=== PATIENT | male | born 1955 | race Caucasian/White ===

== ENCOUNTER → 2016-09-25 | Outpatient (REF) | payer MEDICARE, MEDICAID ==
[~2016-09-25] MED LIST: ALBU17IN INH; AMAN10CA PO; AMIT24CA5 PO; BENZ1TA PO; DICL75TA PO; HALD100I2 IM; METH75TA PO; NORCOTAB PO; Pantoprazole Sodium PO; RIBA200T2 PO; [UNRECOGNIZED DRUG - CODE] PO; [UNRECOGNIZED DRUG - CODE] PO
[2016-09-25 13:09] LABS: BASO % 0.6 % (0.0-1.0); EOS # 0.1 K/mm3 (0.0-0.50); EOS % 1.9 % (0.0-3.0); LARGE UNSTAINED CELL # 0.1 K/mm3 (0.0-0.4); LARGE UNSTAINED CELL % 1.2 % (0.0-4.0); LYMPH # 1.2 K/mm3 (1.5-4.5); MEAN CORPUSCULAR HEMOGLOBIN 31.7 pg (27.0-33.0); MEAN CORPUSCULAR HGB CONC 33.8 g/dl (32.0-36.5); MONO # 0.3 K/mm3 (0.0-0.8); MONO % 5.8 % (0.0-5.0); NEUTROPHILS # 3.8 K/mm3 (1.8-7.7); NEUTROPHILS % 69.6 % (36.0-66.0); PLATELET COUNT, AUTOMATED 147 k/mm3 (150-450); RED CELL DISTRIBUTION WIDTH 13.3 % (11.5-14.5); WHITE BLOOD COUNT 5.5 K/mm3 (4.0-10.0)
[2016-09-25 13:26] LABS: ALBUMIN 4.4 GM/DL (3.2-5.2); ALBUMIN/GLOBULIN RATIO 1.42 (1.00-1.93); ALKALINE PHOSPHATASE 122 U/L (45-117); ALT/SGPT 17 U/L (12-78); ANION GAP 8 MEQ/L (8-16); AST/SGOT 20 U/L (15-37); BILIRUBIN,TOTAL 0.6 MG/DL (0.2-1.0); BLOOD UREA NITROGEN 10 MG/DL (7-18); CALCIUM LEVEL 9.5 MG/DL (8.8-10.2); CARBON DIOXIDE LEVEL 31 MEQ/L (21-32); CHLORIDE LEVEL 103 MEQ/L (98-107); CHOLESTEROL LEVEL 162 MG/DL (<200); CREATININE FOR GFR 0.78 MG/DL (0.70-1.30); GLOMERULAR FILTRATION RATE > 60.0 (>49); GLUCOSE, FASTING 98 MG/DL (80-110); POTASSIUM SERUM 4.6 MEQ/L (3.5-5.1); SODIUM LEVEL 142 MEQ/L (136-145); TOTAL PROTEIN 7.5 GM/DL (6.4-8.2); TRIGLYCERIDES LEVEL 111 MG/DL (<150)
== END ==
LOC: M SFHCADAM 09:16
PROVIDERS: ATTEND Physician Assistant Medical
DX: B18.2 Chronic viral hepatitis C (principal); K21.9 Gastro-esophageal reflux disease without esophagitis; F17.201 Nicotine dependence, unspecified, in remission; Z79.899 Other long term (current) drug therapy
CPT/HCPCS: 80053; 80061; 82306; 84443; 85025; G0463

== ENCOUNTER → 2016-10-01 | Outpatient (REF) | payer MEDICARE, MEDICAID ==
[2016-10-03 14:13] LABS: ALT 18 IU/L (0-55); GGT 16 IU/L (0-65); HAPTOGLOBIN 177 mg/dL (34-200); HEPATITIS C QUANTITATION HCV Not Detected IU/mL (.); NECROINFLAMM GRADE A0-No activity (.); TOTAL BILIRUBIN 0.3 mg/dL (0.0-1.2)
== END ==
LOC: M SFHCPLAZ 10:51
PROVIDERS: ATTEND Internal Medicine Infectious Disease
DX: B18.2 Chronic viral hepatitis C (principal); K21.9 Gastro-esophageal reflux disease without esophagitis; F20.0 Paranoid schizophrenia; J44.9 Chronic obstructive pulmonary disease, unspecified; F17.200 Nicotine dependence, unspecified, uncomplicated
CPT/HCPCS: 82105; 82172; 82247; 82977; 83010; 83883; 84460; 87522; G0463

== ENCOUNTER → 2017-07-02 | Outpatient (REF) | payer MEDICARE, MEDICAID ==
[~2017-07-02] MED LIST changes: -AMIT24CA5 PO; +AMIT24CA7 PO; +BENZ-52 PO; -BENZ1TA PO
[2017-07-02 20:02] LABS: BASO % 0.6 % (0.0-1.0); EOS # 0.1 10^3/uL (0.0-0.50); EOS % 1.5 % (0.0-3.0); IMMATURE GRANULOCYTE % 0.3 % (0-0); LYMPH # 1.8 10^3/uL (1.5-4.5); MEAN CORPUSCULAR HEMOGLOBIN 30.7 pg (27.0-33.0); MEAN CORPUSCULAR HGB CONC 33.1 g/dl (32.0-36.5); MEAN CORPUSCULAR VOLUME 92.9 fl (80.0-96.0); MONO # 0.5 10^3/uL (0.0-0.8); NEUTROPHILS # 4.4 10^3/uL (1.8-7.7); NEUTROPHILS % 64.6 % (36.0-66.0); PLATELET COUNT, AUTOMATED 186 10^3/uL (150-450); RED CELL DISTRIBUTION WIDTH 13.3 % (11.5-14.5); WHITE BLOOD COUNT 6.8 10^3/uL (4.0-10.0)
[2017-07-02 20:19] LABS: ALBUMIN 4.1 GM/DL (3.2-5.2); ALBUMIN/GLOBULIN RATIO 1.21 (1.00-1.93); ALKALINE PHOSPHATASE 110 U/L (45-117); ALT/SGPT 18 U/L (12-78); ANION GAP 5 MEQ/L (8-16); AST/SGOT 15 U/L (7-37); BILIRUBIN,TOTAL 0.4 MG/DL (0.2-1.0); BLOOD UREA NITROGEN 6 MG/DL (7-18); CALCIUM LEVEL 9.4 MG/DL (8.8-10.2); CARBON DIOXIDE LEVEL 34 MEQ/L (21-32); CHLORIDE LEVEL 101 MEQ/L (98-107); CHOLESTEROL LEVEL 160 MG/DL (<200); CREATININE FOR GFR 0.74 MG/DL (0.70-1.30); GLOMERULAR FILTRATION RATE > 60.0 (>49); GLUCOSE, FASTING 88 MG/DL (80-110); POTASSIUM SERUM 4.5 MEQ/L (3.5-5.1); SODIUM LEVEL 140 MEQ/L (136-145); TOTAL PROTEIN 7.5 GM/DL (6.4-8.2); TRIGLYCERIDES LEVEL 73 MG/DL (<150)
== END ==
LOC: M SFHCADAM 15:55
PROVIDERS: ATTEND Physician Assistant Medical
DX: B18.2 Chronic viral hepatitis C (principal); J44.9 Chronic obstructive pulmonary disease, unspecified; K21.9 Gastro-esophageal reflux disease without esophagitis; F20.0 Paranoid schizophrenia; F17.201 Nicotine dependence, unspecified, in remission; G25.2 Other specified forms of tremor; Z79.899 Other long term (current) drug therapy
CPT/HCPCS: 80053; 80061; 84443; 85025; G0463

== ENCOUNTER → 2017-08-27 | Outpatient (CLI) | payer MEDICARE, MEDICAID ==
[2017-08-27 09:56] LABS: BASO # 0.1 10^3/uL (0.0-0.2); BASO % 0.6 % (0.0-1.0); EOS # 0.1 10^3/uL (0.0-0.50); EOS % 0.9 % (0.0-3.0); HEMATOCRIT 47.3 % (42.0-52.0); HEMOGLOBIN 15.9 g/dl (14.0-18.0); IMMATURE GRANULOCYTE % 0.1 % (0-0); LYMPH % 12.7 % (24.0-44.0); MEAN CORPUSCULAR HEMOGLOBIN 31.2 pg (27.0-33.0); MEAN CORPUSCULAR HGB CONC 33.6 g/dl (32.0-36.5); MEAN CORPUSCULAR VOLUME 92.9 fl (80.0-96.0); MONO # 0.5 10^3/uL (0.0-0.8); MONO % 6.1 % (0.0-5.0); NEUTROPHILS # 6.3 10^3/uL (1.8-7.7); NEUTROPHILS % 79.6 % (36.0-66.0); PLATELET COUNT, AUTOMATED 167 10^3/uL (150-450); RED BLOOD COUNT 5.09 10^6/uL (4.30-6.10); RED CELL DISTRIBUTION WIDTH 13.3 % (11.5-14.5); WHITE BLOOD COUNT 7.9 10^3/uL (4.0-10.0)
[2017-08-27 10:25] LABS: ALBUMIN 4.1 GM/DL (3.2-5.2); ALBUMIN/GLOBULIN RATIO 1.21 (1.00-1.93); ALKALINE PHOSPHATASE 116 U/L (45-117); ALT/SGPT 15 U/L (12-78); ANION GAP 5 MEQ/L (8-16); AST/SGOT 16 U/L (7-37); BILIRUBIN,TOTAL 0.4 MG/DL (0.2-1.0); BLOOD UREA NITROGEN 9 MG/DL (7-18); CALCIUM LEVEL 9.4 MG/DL (8.8-10.2); CARBON DIOXIDE LEVEL 32 MEQ/L (21-32); CHLORIDE LEVEL 107 MEQ/L (98-107); CHOLESTEROL LEVEL 159 MG/DL (<200); CHOLESTEROL RISK RATIO 4.676 (<5); CREATININE FOR GFR 0.77 MG/DL (0.70-1.30); GLOMERULAR FILTRATION RATE > 60.0 (>49); GLUCOSE, FASTING 100 MG/DL (70-100); HDL CHOLESTEROL 34 MG/DL (>40); NON-HDL-C 125 MG/DL; POTASSIUM SERUM 4.7 MEQ/L (3.5-5.1); SODIUM LEVEL 144 MEQ/L (136-145); TOTAL PROTEIN 7.5 GM/DL (6.4-8.2); TRIGLYCERIDES LEVEL 115 MG/DL (<150)
== END ==
LOC: M LAB 09:10
DX: B18.2 Chronic viral hepatitis C (principal); J44.9 Chronic obstructive pulmonary disease, unspecified
CPT/HCPCS: 84443

== ENCOUNTER → 2018-03-24 | Outpatient (REF) | payer MEDICARE, MEDICAID ==
[2018-03-24 20:03] LABS: ALBUMIN 4.1 GM/DL (3.2-5.2); ALBUMIN/GLOBULIN RATIO 1.17 (1.00-1.93); ALKALINE PHOSPHATASE 118 U/L (45-117); ALT/SGPT 24 U/L (12-78); ANION GAP 10 MEQ/L (8-16); AST/SGOT 17 U/L (7-37); BILIRUBIN,TOTAL 0.5 MG/DL (0.2-1.0); BLOOD UREA NITROGEN 5 MG/DL (7-18); CALCIUM LEVEL 9.5 MG/DL (8.8-10.2); CARBON DIOXIDE LEVEL 29 MEQ/L (21-32); CHLORIDE LEVEL 104 MEQ/L (98-107); CREATININE FOR GFR 0.82 MG/DL (0.70-1.30); FREE T4 1.02 NG/DL (0.76-1.46); GLOMERULAR FILTRATION RATE > 60.0 (>49); GLUCOSE, FASTING 76 MG/DL (70-100); POTASSIUM SERUM 4.1 MEQ/L (3.5-5.1); SODIUM LEVEL 143 MEQ/L (136-145); TOTAL PROTEIN 7.6 GM/DL (6.4-8.2)
[2018-03-24 20:13] LABS: BASO % 0.7 % (0.0-1.0); EOS # 0.1 10^3/uL (0.0-0.50); EOS % 1.5 % (0.0-3.0); HEMOGLOBIN 15.4 g/dl (13.5-17.5); IMMATURE GRANULOCYTE % 0.3 % (0-3.0); LYMPH # 1.6 10^3/uL (1.5-4.5); LYMPH % 26.6 % (24.0-44.0); MEAN CORPUSCULAR HEMOGLOBIN 31.2 pg (27.0-33.0); MEAN CORPUSCULAR HGB CONC 34.2 g/dl (32.0-36.5); MEAN CORPUSCULAR VOLUME 91.1 fl (80.0-96.0); MONO # 0.4 10^3/uL (0.0-0.8); MONO % 6.9 % (0.0-5.0); NEUTROPHILS # 3.8 10^3/uL (1.8-7.7); PLATELET COUNT, AUTOMATED 170 10^3/uL (150-450); RED BLOOD COUNT 4.94 10^6/uL (4.30-6.10); RED CELL DISTRIBUTION WIDTH 13.5 % (11.5-14.5); WHITE BLOOD COUNT 5.9 10^3/uL (4.0-10.0)
[2018-03-26 07:31] LABS: ALPHA FETOPROTEIN TUMOR QUANT < 1.3 NG/ML (<8.1)
== END ==
LOC: M SFHCADAM 15:08
DX: K21.9 Gastro-esophageal reflux disease without esophagitis (principal); E03.9 Hypothyroidism, unspecified; F20.0 Paranoid schizophrenia; J44.9 Chronic obstructive pulmonary disease, unspecified; F17.201 Nicotine dependence, unspecified, in remission; G25.2 Other specified forms of tremor; R53.83 Other fatigue; Z86.19 Personal history of other infectious and parasitic diseases
CPT/HCPCS: 84443

== ENCOUNTER → 2018-04-04 | Outpatient (CLI) | payer MEDICARE, MEDICAID | LOC: M WUC 11:27 | DX: E03.9 Hypothyroidism, unspecified (principal) | CPT/HCPCS: 84443 ==

== ENCOUNTER → 2018-04-08 | Outpatient (CLI) | payer MEDICARE, MEDICAID | LOC: M RAD 07:21 | DX: Z86.19 Personal history of other infectious and parasitic diseases (principal); N28.1 Cyst of kidney, acquired | CPT/HCPCS: 76705 ==

== ENCOUNTER → 2018-11-25 | Outpatient (REF) | payer MEDICARE, MEDICAID ==
[~2018-11-25] MED LIST changes: +AMAN100C20 PO; -AMAN10CA PO; +HYDR-3715 PO; -NORCOTAB PO
[2018-11-25 13:28] LABS: BASO % 0.7 % (0.0-1.0); EOS # 0.1 10^3/uL (0.0-0.50); HEMATOCRIT 48.3 % (42.0-52.0); HEMOGLOBIN 16.2 g/dl (13.5-17.5); LYMPH # 1.1 10^3/uL (1.5-4.5); LYMPH % 18.4 % (24.0-44.0); MEAN CORPUSCULAR HGB CONC 33.5 g/dl (32.0-36.5); MEAN CORPUSCULAR VOLUME 92.4 fl (80.0-96.0); MONO # 0.4 10^3/uL (0.0-0.8); MONO % 7.1 % (0.0-5.0); NEUTROPHILS # 4.4 10^3/uL (1.8-7.7); NEUTROPHILS % 71.6 % (36.0-66.0); PLATELET COUNT, AUTOMATED 140 10^3/uL (150-450); RED BLOOD COUNT 5.23 10^6/uL (4.30-6.10); WHITE BLOOD COUNT 6.1 10^3/uL (4.0-10.0)
[2018-11-25 14:06] LABS: ALBUMIN 4.3 GM/DL (3.2-5.2); ALT/SGPT 21 U/L (12-78); BILIRUBIN,TOTAL 0.5 MG/DL (0.2-1.0); BLOOD UREA NITROGEN 11 MG/DL (7-18); CALCIUM LEVEL 9.5 MG/DL (8.8-10.2); CARBON DIOXIDE LEVEL 33 MEQ/L (21-32); CHLORIDE LEVEL 105 MEQ/L (98-107); CHOLESTEROL LEVEL 154 MG/DL (<200); CREATININE FOR GFR 0.84 MG/DL (0.70-1.30); FREE T4 0.96 NG/DL (0.76-1.46); GLOMERULAR FILTRATION RATE > 60.0 (>49); GLUCOSE, FASTING 66 MG/DL (70-100); HDL CHOLESTEROL 40 MG/DL (>40); LDL CHOLESTEROL 97 MG/DL (<100); NON-HDL-C 114 MG/DL; POTASSIUM SERUM 4.6 MEQ/L (3.5-5.1); SODIUM LEVEL 141 MEQ/L (136-145); TOTAL PROTEIN 7.1 GM/DL (6.4-8.2); TRIGLYCERIDES LEVEL 86 MG/DL (<150)
[2018-11-25 14:08] LABS: FOLATE 14.6 NG/ML; VITAMIN B12 LEVEL 653 PG/ML
[2018-11-25 14:51] LABS: HEMOGLOBIN A1c 5.5 %
== END ==
LOC: M SFHCADAM 09:39
PROVIDERS: ATTEND Physician Assistant Medical
DX: F20.0 Paranoid schizophrenia (principal); E03.9 Hypothyroidism, unspecified; G25.2 Other specified forms of tremor; Z12.5 Encounter for screening for malignant neoplasm of prostate
CPT/HCPCS: 80053; 80061; 82105; 82140; 82607; 82746; 83036; 84207; 84439; 84443; 85025; G0103

== ENCOUNTER 2018-12-09 10:55 | Inpatient (IN) | payer MEDICARE, MEDICAID ==
[~2018-12-09] VITALS: Ht 165.1 cm; Wt 65.0 kg
[~2018-12-09 10:55] MED LIST changes: +PALIPERIDONE 3 MG ER TAB (INVEGA) PO SCH
[2018-12-09] MEDS ORDERED: LORazepam 2 MG TAB PO STA (11:40)
[2018-12-09 11:59] LABS: HEMATOCRIT 45.6 % (42.0-52.0); HEMOGLOBIN 15.5 g/dl (13.5-17.5); MEAN CORPUSCULAR HEMOGLOBIN 30.6 pg (27.0-33.0); MEAN CORPUSCULAR VOLUME 90.1 fl (80.0-96.0); PLATELET COUNT, AUTOMATED 189 10^3/uL (150-450); RED BLOOD COUNT 5.06 10^6/uL (4.30-6.10); WHITE BLOOD COUNT 6.5 10^3/uL (4.0-10.0)
[2018-12-09 12:42] LABS: AMPHETAMINES LEVEL URINE NEGATIVE (NEGATIVE); BARBITURATES URINE NEGATIVE (NEGATIVE); BENZODIAZEPINES URINE NEGATIVE (NEGATIVE); CANNABINOIDS URINE NEGATIVE (NEGATIVE); COCAINE METABOLITE URINE NEGATIVE (NEGATIVE); METHADONE URINE NEGATIVE (NEGATIVE); OPIATES URINE NEGATIVE (NEGATIVE); PHENCYCLIDINE URINE NEGATIVE (NEGATIVE)
[2018-12-09 12:43] LABS: ACETAMINOPHEN LEVEL < 2.0 UG/ML (10.0-30.0); ALBUMIN 4.2 GM/DL (3.2-5.2); ALT/SGPT 29 U/L (12-78); BILIRUBIN,DIRECT 0.1 MG/DL (0.0-0.2); BILIRUBIN,TOTAL 0.7 MG/DL (0.2-1.0); BLOOD UREA NITROGEN 4 MG/DL (7-18); CALCIUM LEVEL 9.2 MG/DL (8.8-10.2); CARBON DIOXIDE LEVEL 33 MEQ/L (21-32); CHLORIDE LEVEL 104 MEQ/L (98-107); CREATININE FOR GFR 0.78 MG/DL (0.70-1.30); ETHYL ALCOHOL (ETHANOL) < 0.003 % (0.000-0.010); GLOMERULAR FILTRATION RATE > 60.0 (>49); GLUCOSE, FASTING 102 MG/DL (70-100); POTASSIUM SERUM 4.3 MEQ/L (3.5-5.1); SALICYLATE LEVEL 3.6 MG/DL (5.0-30.0); SODIUM LEVEL 140 MEQ/L (136-145); TOTAL PROTEIN 7.6 GM/DL (6.4-8.2)
[2018-12-09] MEDS ORDERED: OLANZapine ORAL DISINTEGRATING TAB 5MG PO PRN (13:45)
[2018-12-09] MEDS ORDERED: ACETAMINOPHEN TAB 650MG DOSE (2X325MG) PO PRN (13:45)
[2018-12-09] MEDS ORDERED: PYRI50TA8 PO (13:50)
[2018-12-09] MEDS ORDERED: LORA1TAB12 PO (13:50)
[2018-12-09] MEDS ORDERED: BENZ-52 PO (13:50)
[2018-12-09] MEDS ORDERED: OLAN20TA14 PO (13:50)
[2018-12-09] MEDS ORDERED: HALD100I2 IM (13:50)
[2018-12-09] MEDS ORDERED: COMMENT (13:52)
[2018-12-09 15:23] VITALS: BP 139/87
[2018-12-09] MEDS: QUEtiapine FUMARATE 50 MG TAB PO SCH ×2 (16:28→21:00)
[2018-12-10 07:05] VITALS: BP 144/88
[2018-12-10] MEDS: QUEtiapine FUMARATE 50 MG TAB PO SCH ×3 (08:55→21:00)
[2018-12-10 10:00] VITALS: BP 144/88
--- NOTE | 2018-12-10 12:13 | MHHPEPDOC ---
General Date Of Admission: December 09, 2018 Legal Status: 9.39 Chief Complaint "I'm a healer." History of Present Illness HISTORY OF THE PRESENT ILLNESS: Patient is a 63 -year-old , male, with a psych history of paranoid schizophrenia and multiple admission [facility] [place] who was brought to ED by his sister due to psychotic, paranoid, religiously preoccupied symptoms. Per ED pt stopped taking his medications and following up at [facility] b/c "I didn't want to" and "I'm allergic to all psychotropics." Pt's sister also told ED that pt warned her to not come in his apt b/c she will be in danger and that his landlord called her to inform her that pt has been knocking on tenant's doors, yelling and preaching to them. 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 Pt is a very poor historian so history gathered from ED report of evaluation. Psychiatric Review of Systems Depression (2 or more weeks): denies Pat (4 or more days of): irritable/elevated mood, flight of ideas, distractibility Psychosis: auditory hallucination, delusions, paranoia, disorganization PTSD: denies Anxiety: situational anxiety, stressor related anxiety Anxiety/ 6 months or more of: restlessness, keyed up, difficulty concentrating Past Psychiatric History Previous Psychiatric Diagnosis: paranoid schizophrenia Previous Psychiatric Admissions:multiple in the past for psychosis, last 06/2005 on [facility] [place] in past several months Suicide Attempts: none known Psychiatric Follow-up: [facility] hasn't gone "b/c I didn't feel like it" for a few wks Psychiatric medications: has been on haldol dec 300mg qmonth, zyprexa 20mg qhs, ativan 1mg tid, cogentin 1mg bid Past Medical History Medical Problems history of perforated duodenal ulcer Hep C Head Injury: No Seizures: No Hospitalizations: Yes Surgeries: Yes Family Medical/Psychiatric HX Medical Problems noncontributor FmPH unknown (pt poor historian) Psychiatric Disorders: No Addiction: No Suicide Attemps/Completions: No Addiction History nicotine, denies (utox neg) Social History Childhood: born and raised [facility], sister keeps track of pt and aids him with his needs Abuse/Trauma:denies Current Living Situation: lives in apt alone, sister checks in on him Education: high school edu Employment: disabled Social Support: sister Legal: none known Marital: legally from (no known contact with her for multiple years), no kids Mental Status Examination General Appearance: unkempt, disheveled, appears stated age, hospital scubs/clothing Build: thin Demeanor: mistrustful, withdrawn, preoccupied, guarded Eye Contact: avoidant Activity: anxious Behavior: uncooperative, resistant, withdrawn Speech: non-spontaneous, impoverished Mood: anxious, irritable Mood irritable Affect: constricted, labile, congruent, anxious, disorganized Thought Process: concrete, loose, associative, flight of ideas Thought Content (Delusions): grandiose, bizarre, paranoia, delusions, other (religiously preoccupied, denies SI/HI) Thought Content (Other): preoccupied, guarded, ideas of reference, internal- stimuli, appears paranoid Thought Content (Aggressive): none reported Perception (Hallucinations): auditory Perception (Other): none reported Cognition (Impairment of): memory, attention/concentration, ability to abstract Cognition(Intelligence Est.): borderline Oriented: Awake, Alert, Oriented times three Insight: poor Judgment: Poor Psychosis: Associations, Abstract Thinking, Psychotic Perceptions Diagnoses paranoid schizophrenia A-FIB/CHADSVASC A-FIB History Current/History of A-Fib/PAF?: No Current Oral Anticoagulant The: No Treatment Treatment ordered: NONE Reason Anticoagulant not given: Not indicated/[id number] Assessment Pt seen and states "I don't want to talk." When seen in treatment team early this morning he stated "I can heal you." Askedd pt if he would agree to restart his medications and just ask "what are they." Walked away after that. He is bizarre, delusional, pacing the unit responding to internal stimuli. He is redirectable with staff. Pt is a very poor historian did not supply much history given his current psychotic symptoms. Initial Treatment Plan 1. Patient was admitted on a 9.39 status. 2. Complete history was obtained. 3. With patients permission, family will be contacted and database will be expanded. 4. Patients medication regimen will be reviewed and changed accordingly. 5. Patient will be provided with protected environment. 6. Patient will be treated with individual, group, and milieu therapies. 7. Patient will receive supportive psych-education. 8. Discharge planning will commence immediately. 9. Outpatient follow-up treatment will be strongly recommended. 10. The initial treatment plan will focus initially on: * Depression. * Risk for suicide. * Substance abuse. 11. restart outpatient meds. Give haldol dec 300mg im x1 ESTIMATED LENGTH OF STAY: 7-9 DAYS. TIME SPENT COUNSELING AND COORDINATING INITIAL CARE: 60 minutes. Vital Signs Vital Signs Date Time Temp Pulse Resp B/P (MAP) Pulse Ox O2 Delivery O2 Flow Rate FiO2 12/10/18 07:05 97.9 70 18 144/88 (106) 12/09/18 15:23 98 12/09/18 15:09 Room Air Laboratory Data 24H Labs Laboratory Tests 2 12/09/18 11:42: Nucleated Red Blood Cells % (auto) 0.0, Anion Gap 3L, Glomerular Filtration Rate > 60.0, Calcium Level 9.2, Aspartate Amino Transf (AST/SGOT) 25, Alanine Aminotransferase (ALT/SGPT) 29, Alkaline Phosphatase 107, Total Bilirubin 0.7, Direct Bilirubin 0.1, Total Protein 7.6, Albumin 4.2, Albumin/Globulin Ratio 1.24, Thyroid Stimulating Hormone (TSH) 3.190, Salicylates Level 3.6L, Acetaminophen Level < 2.0L, Ethyl Alcohol Level < 0.003 CBC/BMP Laboratory Tests 12/09/18 11:42 Red Blood Count 5.06, Mean Corpuscular Volume 90.1, Mean Corpuscular Hemoglobin 30.6, Mean Corpuscular Hemoglobin Concent 34.0, Red Cell Distribution Width 13.7 Medications Scheduled Benztropine Mesylate (Benztropine Mesylate) 1 Mg Tablet, 1 MG PO BID, (Reported) Haloperidol Decanoate (Haldol Decanoate 100) 100 Mg/1 Ml Ampul, 300 MG IM QMONTH, (Reported) Lorazepam (Lorazepam) 1 Mg Tablet, 1 MG PO TID, (Reported) Olanzapine (Olanzapine) 20 Mg Tablet, 20 MG PO QHS, (Reported) Pyridoxine HCl (Vitamin B6) (Pyridoxine HCl) 50 Mg Tablet, 25 MG PO QHS, (Reported) Miscellaneous Medications [Comment ] , (Reported) PT STOPPED TAKING MEDS AND HAS NOT HAD THEM IN A FEW WEEKS Allergies Coded Allergies: Penicillins (Verified Allergy, Unknown, 12/09/18) also penicillin cross reactors risperidone (Verified Allergy, Unknown, 12/09/18) KEARA PARTIDA DO December 10, 2018 12:13
--- NOTE | 2018-12-10 13:16 | HPEPDOC ---
General Date of Admission December 09, 2018 at 13:32 Chief Complaint The patient is a 63-year-old male admitted with a reason for visit of Chronic Paranoid Schizophrenia. History of Present Illness Patient is a 63-year-old male, presenting to the emergency room on account of acute psychosis and paranoia. He has a past medical history significant for chronic paranoid schizophrenia, port removal. Also, chronic hepatitis C, GERD, COPD, hyperlipidemia, chronic constipation. It was also documented that patient reported he was being controlled by god. He had also stopped all his medications, claiming allergy to all his psychotropics. He denied any suicidal or homicidal ideation. He was admitted to inpatient psychiatry unit for further evaluation and management. On evaluation, his very reluctant to participate in assessment. Very poor eye contact. He eventually declined physical examination Home Medications Scheduled Benztropine Mesylate (Benztropine Mesylate) 1 Mg Tablet, 1 MG PO BID, (Reported) Haloperidol Decanoate (Haldol Decanoate 100) 100 Mg/1 Ml Ampul, 300 MG IM QMONTH, (Reported) Lorazepam (Lorazepam) 1 Mg Tablet, 1 MG PO TID, (Reported) Olanzapine (Olanzapine) 20 Mg Tablet, 20 MG PO QHS, (Reported) Pyridoxine HCl (Vitamin B6) (Pyridoxine HCl) 50 Mg Tablet, 25 MG PO QHS, (Reported) Miscellaneous Medications [Comment ] , (Reported) PT STOPPED TAKING MEDS AND HAS NOT HAD THEM IN A FEW WEEKS Allergies Coded Allergies: Penicillins (Verified Allergy, Unknown, 12/09/18) also penicillin cross reactors risperidone (Verified Allergy, Unknown, 12/09/18) Past Medical History Medical History Hyperlipidemia GERD COPD Paranoid schizophrenia Duodenal Ulcer with perforated viscus Chronic hepatitis C Depression, anxiety Chronic constipation Surgical History Exploratory laparoscopy with repair of perforated duodenal ulcer Thyroid ion Tooth Extraction EGD, colonoscopy Family History Father: Myocardial infarction, congestive heart failure Social History * Smoker: greater than 1 pack/day Alcohol: Denies Drugs: denies A-FIB/CHADSVASC A-FIB History Current/History of A-Fib/PAF?: No Current Oral Anticoagulant The: No Review of Systems Other systems Unable to complete review of systems due to patient's reluctance to provide information due to underlying clinical status with acute paranoid schizophrenia Physical Examination Other physical findings GENERAL: NAD SKIN : Warm, dry intact HEENT: Atraumatic, normocephalic, PERRL, moist mucous membrane MS: no joint deformities NEURO: Alert , CN2-12 grossly intact PSYCH: Anxiety is present Vital Signs Vital Signs Date Time Temp Pulse Resp B/P (MAP) Pulse Ox O2 Delivery O2 Flow Rate FiO2 12/10/18 11:31 Room Air 12/10/18 10:00 97.9 70 18 144/88 98 Assessment/Plan GERD COPD Chronic constipation Paranoid schizophrenia with acute psychosis Medical nonadherence PLAN Proton pump inhibitor daily for underlying GERD and history of duodenal ulcer Treatment of acute psychotic episode and paranoid schizophrenia by primary team At this time there are no acute medical problems or underlying comorbidities requiring active follow-up. Medical team will sign off, please reconsult as needed. Plan / VTE VTE Prophylaxis Ordered?: No VTE Exclusion Mechanical Proph: Low Risk for VTE SERENITY SNELL December 10, 2018 13:16
[2018-12-10] MEDS: PANTOPRAZOLE 40MG TAB (PROTONIX) PO SCH (14:39)
[2018-12-10] MEDS ORDERED: HALOPERIDOL DECANOATE 100 MG/ML VIAL (J1631) IM ONE (15:00)
[2018-12-10 18:00] VITALS: BP 138/80
[2018-12-11 06:28] VITALS: BP 143/84
[2018-12-11] MEDS: QUEtiapine FUMARATE 50 MG TAB PO SCH ×3 (09:00→20:56)
[2018-12-11] MEDS: PANTOPRAZOLE 40MG TAB (PROTONIX) PO SCH (09:00)
--- NOTE | 2018-12-11 13:17 | MHIPNPDOC ---
[facility] Progress Note Progress Note DATE OF SERVICE: 12/11/18 HISTORY: This 63-year-old male has a long history of psychotic behavior and recently has become violent and thought disordered. VITAL SIGNS: See below. NEW TEST RESULTS:. No new test results. CURRENT MEDICATIONS: See below. MENTAL STATUS EXAMINATION: Patient is a 63 -year old male, who is irritable with paranoid thoughts. Speech: Is, unremarkable. Language skills are, intact. Thought processes including: Paranoid. Thought content:. Patient is delusional with visual hallucinations with thoughts that he is being electrocuted and controlled. Abstract reasoning, and computation:. Abstract reasoning is poor. Description of associations:, Loose. Description of abnormal or psychotic thoughts:. Patient states he is being hurt by antipsychotics and that he is being electrocuted as well as controlled by electrical devices. Judgment: Poor. Insight:, Poor. Orientation:, Fully oriented. Recent and remote memory:, Impaired. Attention span and concentration: Poor. Language:. No disturbance. Fund of knowledge: Fair. Mood: Irritable. Affect:, Angry. DIAGNOSES: 1., Schizoaffective disorder ASSESSMENT: This 63-year-old male is a noncompliant patient who is refusing his Haldol Decanoate as prescribed by Dr. Barrera and is presently angry and noncompliant. He is having hallucinations and paranoid delusions. MANAGEMENT PLAN: Encourage patient to take Haldol Decanoate and may readjust oral medications. TIME SPENT:, 45 minutes. Vital Signs Vital Signs Date Time Temp Pulse Resp B/P (MAP) Pulse Ox O2 Delivery O2 Flow Rate FiO2 12/11/18 06:28 98.1 90 16 143/84 (103) 12/10/18 11:31 Room Air 12/10/18 10:00 98 Current Medications Current Medications Acetaminophen (Tylenol Tab) 650 mg Q6HP PRN PO HEADACHE or DISCOMFORT; Start 12/09/18 at 13:45 Al Hydrox/Mg Hydrox/Simethicone (Mylanta) 30 ml Q4HP PRN PO HEARTBURN/INDIGESTION; Start 12/09/18 at 13:45 Home Med (Med Rec Complete!) ASDIRECTED XX ; Start 12/09/18 at 14:00; Stop 12/09/18 at 14:00; Status DC Lorazepam (Ativan) 2 mg STAT STAT PO Last administered on 12/09/18at 11:58; Start 12/09/18 at 11:40; Stop 12/09/18 at 11:41; Status DC Magnesium Hydroxide (Milk Of Magnesia) 30 ml DAILYPRN PRN PO CONSTIPATION; Start 12/09/18 at 13:45 Miscellaneous (Unresolved Clarification Entry) SEE LABEL COMMENTS DAILY XX ; Start 12/10/18 at 09:00; Stop 12/10/18 at 14:48; Status DC Olanzapine (ZyPREXA ZYDIS) 5 mg Q6HP PRN PO AGITATION; Start 12/09/18 at 13:45 Paliperidone (Invega) 3 mg BID PO ; Start 12/09/18 at 09:00; Status Cancel Pantoprazole Sodium (Protonix) 40 mg DAILY PO Last administered on 12/10/18at 14:39; Start 12/10/18 at 09:00 Quetiapine Fumarate (SEROquel) 50 mg TID PO Last administered on 12/10/18at 15:14; Start 12/09/18 at 16:00 Trazodone HCl (Desyrel) 50 mg QHSP PRN PO INSOMNIA; Start 12/09/18 at 13:45 Allergies Coded Allergies: Penicillins (Verified Allergy, Unknown, 12/09/18) also penicillin cross reactors risperidone (Verified Allergy, Unknown, 12/09/18) A-FIB/CHADSVASC A-FIB History Current/History of A-Fib/PAF?: No Current Oral Anticoagulant The: No JL CHOUDHURY MD December 11, 2018 13:17
[2018-12-11 18:00] VITALS: BP 132/72
[2018-12-11] MEDS: MAALOX 30 ML SUSP *UDC PO PRN (20:58)
[2018-12-12 07:13] VITALS: BP 164/98
[2018-12-12] MEDS: PANTOPRAZOLE 40MG TAB (PROTONIX) PO SCH (08:45)
[2018-12-12] MEDS: QUEtiapine FUMARATE 50 MG TAB PO SCH ×3 (08:45→21:00)
[2018-12-12] MEDS: HALOPERIDOL 5 MG TAB PO SCH ×3 (11:12→21:00)
[2018-12-12] MEDS: BENZTROPINE 1 MG TAB PO SCH ×2 (11:12→21:00)
--- NOTE | 2018-12-12 13:20 | MHIPNPDOC ---
[facility] Progress Note Progress Note DATE OF SERVICE: 12/12/18 HISTORY: 63-year-old male with long history of psychosis, living with family. VITAL SIGNS: See below. NEW TEST RESULTS:. None. CURRENT MEDICATIONS: See below. MENTAL STATUS EXAMINATION: Patient is a 63-year old male, who is admitted for active psychotic symptoms with long history of psychosis. Speech: Is, minimal. Language skills are normal. Thought processes including:. Hallucinations and delusions. Thought content:, Visual hallucinations and paranoid delusions. Abstract reasoning, and computation:, Poor. Description of associations: Adequate. Description of abnormal or psychotic thoughts: Hallucinations and delusions of electrocution and poisoning. Judgment:, Poor. Insight:, Poor. Orientation: Full. Recent and remote memory: Not measured. Attention span and concentration: Poor. Language:. No disturbance. Fund of knowledge: Not measurable. Mood: Low. Affect: Angry. DIAGNOSES: 1. Schizophrenia ASSESSMENT: 63-year-old male actively psychotic and noncompliant with medication MANAGEMENT PLAN:. Will change neuroleptic medication to Haldol oral. TIME SPENT: 30 minutes. Vital Signs Vital Signs Date Time Temp Pulse Resp B/P (MAP) Pulse Ox O2 Delivery O2 Flow Rate FiO2 12/12/18 07:13 98.1 77 16 164/98 (120) 12/10/18 11:31 Room Air 12/10/18 10:00 98 Current Medications Current Medications Acetaminophen (Tylenol Tab) 650 mg Q6HP PRN PO HEADACHE or DISCOMFORT; Start 12/09/18 at 13:45 Al Hydrox/Mg Hydrox/Simethicone (Mylanta) 30 ml Q4HP PRN PO HEARTBURN/INDIGESTION Last administered on 12/11/18at 20:58; Start 12/09/18 at 13:45 Benztropine Mesylate (Cogentin) 1 mg BID PO Last administered on 12/12/18at 11:12; Start 12/12/18 at 09:00 Haloperidol (Haldol) 5 mg TID PO Last administered on 12/12/18at 11:12; Start 12/12/18 at 09:00 Home Med (Med Rec Complete!) ASDIRECTED XX ; Start 12/09/18 at 14:00; Stop 12/09/18 at 14:00; Status DC Lorazepam (Ativan) 2 mg STAT STAT PO Last administered on 12/09/18at 11:58; Start 12/09/18 at 11:40; Stop 12/09/18 at 11:41; Status DC Magnesium Hydroxide (Milk Of Magnesia) 30 ml DAILYPRN PRN PO CONSTIPATION; Start 12/09/18 at 13:45 Miscellaneous (Unresolved Clarification Entry) SEE LABEL COMMENTS DAILY XX ; Start 12/10/18 at 09:00; Stop 12/10/18 at 14:48; Status DC Olanzapine (ZyPREXA ZYDIS) 5 mg Q6HP PRN PO AGITATION; Start 12/09/18 at 13:45 Paliperidone (Invega) 3 mg BID PO ; Start 12/09/18 at 09:00; Status Cancel Pantoprazole Sodium (Protonix) 40 mg DAILY PO Last administered on 12/12/18at 08:45; Start 12/10/18 at 09:00 Quetiapine Fumarate (SEROquel) 50 mg TID PO Last administered on 12/12/18at 08:45; Start 12/09/18 at 16:00 Trazodone HCl (Desyrel) 50 mg QHSP PRN PO INSOMNIA; Start 12/09/18 at 13:45 Allergies Coded Allergies: Penicillins (Verified Allergy, Unknown, 12/09/18) also penicillin cross reactors risperidone (Verified Allergy, Unknown, 12/09/18) A-FIB/CHADSVASC A-FIB History Current/History of A-Fib/PAF?: No Current Oral Anticoagulant The: No Treatment Treatment ordered: NONE JL CHOUDHURY MD December 12, 2018 13:20
[2018-12-12 18:43] VITALS: BP 119/74
[2018-12-13] MEDS ORDERED: HALOPERIDOL 5 MG/ML VIAL (J1630) IM STA (01:26)
[2018-12-13] MEDS: HALOPERIDOL 5 MG TAB PO SCH ×3 (08:41→20:46)
[2018-12-13] MEDS: QUEtiapine FUMARATE 50 MG TAB PO SCH (08:41)
[2018-12-13] MEDS: BENZTROPINE 1 MG TAB PO SCH ×2 (08:41→20:46)
[2018-12-13] MEDS: PANTOPRAZOLE 40MG TAB (PROTONIX) PO SCH (08:45)
--- NOTE | 2018-12-13 11:54 | MHIPNPDOC ---
[facility] Progress Note Progress Note DATE OF SERVICE: 12/13/18 HISTORY: After evaluating Mr. Carrillo yesterday I decided to place him on Haldol oral since she is a Haldol Decanoate user. I am planning to simplify his use of psychotropics. Last night I was cold that he was exceptionally agitated and I ordered Haldol injection of 10 mg intramuscular. Today, Mr. Carrillo came into my office and was much more conversant, though the content of his discussion was buddhist and he stated if he was hurt here God would know. His eye contact was improved and his speech was comprehensible VITAL SIGNS: See below. NEW TEST RESULTS: None. CURRENT MEDICATIONS: See below. MENTAL STATUS EXAMINATION: Patient is a 63-year old male, who is suffering from a long history of schizophrenia. Speech: Is, improved. Language skills are improved. Thought processes including:. Jewish content, but showing improved communication. Thought content: Jewish and persecutory. Abstract reasoning, and computation: Present. Description of associations:. Loose. Description of abnormal or psychotic thoughts: Paranoid delusions and visual hallucinations. Judgment:. Poor. Insight: Limited. Orientation: Full. Recent and remote memory: Hard to gauge. Attention span and concentration:. Poor. Language: Adequate. Fund of knowledge: Hard to gauge. Mood: Irritable. Affect:, Congruent. DIAGNOSES: 1. Schizophrenia ASSESSMENT: Chronic schizophrenia with recent increase in symptoms MANAGEMENT PLAN:, Use of oral Haldol and Haldol decanoate. TIME SPENT: 30 minutes. Vital Signs Vital Signs Date Time Temp Pulse Resp B/P (MAP) Pulse Ox O2 Delivery O2 Flow Rate FiO2 12/12/18 18:43 98.0 74 16 119/74 (89) 12/10/18 11:31 Room Air 12/10/18 10:00 98 Current Medications Current Medications Acetaminophen (Tylenol Tab) 650 mg Q6HP PRN PO HEADACHE or DISCOMFORT; Start 12/09/18 at 13:45 Al Hydrox/Mg Hydrox/Simethicone (Mylanta) 30 ml Q4HP PRN PO HEARTBURN/INDIGESTION Last administered on 12/11/18at 20:58; Start 12/09/18 at 13:45 Benztropine Mesylate (Cogentin) 1 mg BID PO Last administered on 12/13/18at 08:41; Start 12/12/18 at 09:00 Haloperidol (Haldol) 5 mg TID PO Last administered on 12/13/18at 08:41; Start 12/12/18 at 09:00 Haloperidol (Haldol) 10 mg STAT STAT IM Last administered on 12/13/18at 01:35; Start 12/13/18 at 01:26; Stop 12/13/18 at 01:28; Status DC Home Med (Med Rec Complete!) ASDIRECTED XX ; Start 12/09/18 at 14:00; Stop 12/09/18 at 14:00; Status DC Lorazepam (Ativan) 2 mg STAT STAT PO Last administered on 12/09/18at 11:58; Start 12/09/18 at 11:40; Stop 12/09/18 at 11:41; Status DC Magnesium Hydroxide (Milk Of Magnesia) 30 ml DAILYPRN PRN PO CONSTIPATION; S tart 12/09/18 at 13:45 Miscellaneous (Unresolved Clarification Entry) SEE LABEL COMMENTS DAILY XX ; Start 12/10/18 at 09:00; Stop 12/10/18 at 14:48; Status DC Olanzapine (ZyPREXA ZYDIS) 5 mg Q6HP PRN PO AGITATION; Start 12/09/18 at 13:45 Paliperidone (Invega) 3 mg BID PO ; Start 12/09/18 at 09:00; Status Cancel Pantoprazole Sodium (Protonix) 40 mg DAILY PO Last administered on 12/12/18at 08:45; Start 12/10/18 at 09:00 Quetiapine Fumarate (SEROquel) 50 mg TID PO Last administered on 12/13/18at 08:41; Start 12/09/18 at 16:00 Trazodone HCl (Desyrel) 50 mg QHSP PRN PO INSOMNIA; Start 12/09/18 at 13:45 Allergies Coded Allergies: Penicillins (Verified Allergy, Unknown, 12/09/18) also penicillin cross reactors risperidone (Verified Allergy, Unknown, 12/09/18) A-FIB/CHADSVASC A-FIB History Current/History of A-Fib/PAF?: No Current Oral Anticoagulant The: No Treatment Treatment ordered: NONE JL CHOUDHURY MD December 13, 2018 11:54
[2018-12-13 18:33] VITALS: BP 136/82
[2018-12-14] MEDS: HALOPERIDOL 5 MG TAB PO SCH ×3 (08:38→21:00)
[2018-12-14] MEDS: PANTOPRAZOLE 40MG TAB (PROTONIX) PO SCH (08:38)
[2018-12-14] MEDS: BENZTROPINE 1 MG TAB PO SCH ×2 (08:38→21:00)
--- NOTE | 2018-12-14 14:41 | MHIPNPDOC ---
[facility] Progress Note Progress Note DATE OF SERVICE: 12/14/18 HISTORY: 63-year-old male with long history of schizophrenia. VITAL SIGNS: See below. NEW TEST RESULTS:. 9. CURRENT MEDICATIONS: See below. MENTAL STATUS EXAMINATION: Patient is a 63-year old male, who is improving symptoms of schizophrenia. Speech: Is. Rapid. Language skills are intact. Thought processes including: Paranoid thought. Thought content:. Synagogue thought paranoid thought. Abstract reasoning, and computation: Poor. Description of associations:. Loose associations present. Description of abnormal or psychotic thoughts:. Paranoid thought mandaeism thought. Judgment: Poor. Insight:, Poor. Orientation: Full. Recent and remote memory: Unable to measure Attention span and concentration:, Poor. Language:, As above. Fund of knowledge:. Unable to determine. Mood: Irritable Affect:, Congruent. DIAGNOSES: 1. Schizophrenia. ASSESSMENT: A 63-year-old male with schizophrenia MANAGEMENT PLAN: Increase oral Haldol with plan to use Haldol Decanoate. TIME SPENT: 30 minutes. Vital Signs Vital Signs Date Time Temp Pulse Resp B/P (MAP) Pulse Ox O2 Delivery O2 Flow Rate FiO2 12/13/18 18:33 98.4 77 18 136/82 (100) 12/10/18 11:31 Room Air 12/10/18 10:00 98 Current Medications Current Medications Acetaminophen (Tylenol Tab) 650 mg Q6HP PRN PO HEADACHE or DISCOMFORT; Start 12/09/18 at 13:45 Al Hydrox/Mg Hydrox/Simethicone (Mylanta) 30 ml Q4HP PRN PO HEARTBURN/INDIGESTION Last administered on 12/11/18at 20:58; Start 12/09/18 at 13:45 Benztropine Mesylate (Cogentin) 1 mg BID PO Last administered on 12/14/18at 08:38; Start 12/12/18 at 09:00 Haloperidol (Haldol) 5 mg TID PO Last administered on 12/14/18at 08:38; Start 12/12/18 at 09:00; Stop 12/14/18 at 13:21; Status DC Haloperidol (Haldol) 7.5 mg TID PO ; Start 12/14/18 at 16:00 Haloperidol (Haldol) 10 mg STAT STAT IM Last administered on 12/13/18at 01:35; Start 12/13/18 at 01:26; Stop 12/13/18 at 01:28; Status DC Home Med (Med Rec Complete!) ASDIRECTED XX ; Start 12/09/18 at 14:00; Stop 12/09/18 at 14:00; Status DC Lorazepam (Ativan) 2 mg STAT STAT PO Last administered on 12/09/18at 11:58; Start 12/09/18 at 11:40; Stop 12/09/18 at 11:41; Status DC Magnesium Hydroxide (Milk Of Magnesia) 30 ml DAILYPRN PRN PO CONSTIPATION; Start 12/09/18 at 13:45 Miscellaneous (Unresolved Clarification Entry) SEE LABEL COMMENTS DAILY XX ; Start 12/10/18 at 09:00; Stop 12/10/18 at 14:48; Status DC Olanzapine (ZyPREXA ZYDIS) 5 mg Q6HP PRN PO AGITATION; Start 12/09/18 at 13:45 Paliperidone (Invega) 3 mg BID PO ; Start 12/09/18 at 09:00; Status Cancel Pantoprazole Sodium (Protonix) 40 mg DAILY PO Last administered on 12/14/18at 08:38; Start 12/10/18 at 09:00 Quetiapine Fumarate (SEROquel) 50 mg TID PO Last administered on 12/13/18at 08:41; Start 12/09/18 at 16:00; Stop 12/13/18 at 11:57; Status DC Trazodone HCl (Desyrel) 50 mg QHSP PRN PO INSOMNIA; Start 12/09/18 at 13:45 Allergies Coded Allergies: Penicillins (Verified Allergy, Unknown, 12/09/18) also penicillin cross reactors risperidone (Verified Allergy, Unknown, 12/09/18) A-FIB/CHADSVASC A-FIB History Current/History of A-Fib/PAF?: No Current Oral Anticoagulant The: No Treatment Treatment ordered: NONE JL CHOUDHURY MD December 14, 2018 14:40
[2018-12-14 18:00] VITALS: BP 134/80
[2018-12-15 06:47] VITALS: BP 136/89
--- NOTE | 2018-12-15 08:19 | MHIPNPDOC ---
[facility] Progress Note Progress Note DATE OF SERVICE: 12/15/18 HISTORY: 63-year-old male with a long history of schizophrenia, admitted for decompensation. VITAL SIGNS: See below. NEW TEST RESULTS: None. CURRENT MEDICATIONS: See below. MENTAL STATUS EXAMINATION: Patient is a 63-year old male, who is, admitted for decompensation with long history of schizophrenia. Speech: Is, rapid and guarded with hinduism overtones. Language skills are intact. Thought processes including:. Religiosity and paranoia. Thought content:, Anabaptism content and paranoid content. Abstract reasoning, and computation: Poor. Description of associations:. No loose associations. Description of abnormal or psychotic thoughts: Visual and auditory hallucinations and hinduism content. Judgment:, Poor. Insight: Poor Orientation:. Fully oriented 3. Recent and remote memory:. Unable to measure. Attention span and concentration: Poor. Language:. No disturbance of language. Fund of knowledge:. Poor. Mood: Irritable. Affect:, Congruent. DIAGNOSES: 1. Schizophrenia. ASSESSMENT: 63-year-old male with a long history of schizophrenia and recent decompensation medication has been simplified to Haldol oral with attempts to also renew patient's Haldol Decanoate MANAGEMENT PLAN: As above. TIME SPENT:, 30 minutes. Vital Signs Vital Signs Date Time Temp Pulse Resp B/P (MAP) Pulse Ox O2 Delivery O2 Flow Rate FiO2 12/15/18 06:47 98.9 92 16 136/89 (105) 12/10/18 11:31 Room Air 12/10/18 10:00 98 Current Medications Current Medications Acetaminophen (Tylenol Tab) 650 mg Q6HP PRN PO HEADACHE or DISCOMFORT; Start 12/09/18 at 13:45 Al Hydrox/Mg Hydrox/Simethicone (Mylanta) 30 ml Q4HP PRN PO HEARTBURN/INDIGESTION Last administered on 12/11/18at 20:58; Start 12/09/18 at 13:45 Benztropine Mesylate (Cogentin) 1 mg BID PO Last administered on 12/14/18at 08:38; Start 12/12/18 at 09:00 Haloperidol (Haldol) 5 mg TID PO Last administered on 12/14/18at 08:38; Start 12/12/18 at 09:00; Stop 12/14/18 at 13:21; Status DC Haloperidol (Haldol) 7.5 mg TID PO Last administered on 12/14/18at 15:27; Start 12/14/18 at 16:00 Haloperidol (Haldol) 10 mg STAT STAT IM Last administered on 12/13/18at 01:35; Start 12/13/18 at 01:26; Stop 12/13/18 at 01:28; Status DC Home Med (Med Rec Complete!) ASDIRECTED XX ; Start 12/09/18 at 14:00; Stop 12/09/18 at 14:00; Status DC Lorazepam (Ativan) 2 mg STAT STAT PO Last administered on 12/09/18at 11:58; Start 12/09/18 at 11:40; Stop 12/09/18 at 11:41; Status DC Magnesium Hydroxide (Milk Of Magnesia) 30 ml DAILYPRN PRN PO CONSTIPATION; Start 12/09/18 at 13:45 Miscellaneous (Unresolved Clarification Entry) SEE LABEL COMMENTS DAILY XX ; Start 12/10/18 at 09:00; Stop 12/10/18 at 14:48; Status DC Olanzapine (ZyPREXA ZYDIS) 5 mg Q6HP PRN PO AGITATION; Start 12/09/18 at 13:45 Paliperidone (Invega) 3 mg BID PO ; Start 12/09/18 at 09:00; Status Cancel Pantoprazole Sodium (Protonix) 40 mg DAILY PO Last administered on 12/14/18at 08:38; Start 12/10/18 at 09:00 Quetiapine Fumarate (SEROquel) 50 mg TID PO Last administered on 12/13/18at 08:41; Start 12/09/18 at 16:00; Stop 12/13/18 at 11:57; Status DC Trazodone HCl (Desyrel) 50 mg QHSP PRN PO INSOMNIA; Start 12/09/18 at 13:45 Allergies Coded Allergies: Penicillins (Verified Allergy, Unknown, 12/09/18) also penicillin cross reactors risperidone (Verified Allergy, Unknown, 12/09/18) A-FIB/CHADSVASC A-FIB History Current/History of A-Fib/PAF?: No Treatment Treatment ordered: NONE JL CHOUDHURY MD December 15, 2018 08:19
[2018-12-15] MEDS: BENZTROPINE 1 MG TAB PO SCH ×2 (08:22→20:49)
[2018-12-15] MEDS: HALOPERIDOL 5 MG TAB PO SCH ×3 (08:22→20:49)
[2018-12-15] MEDS: PANTOPRAZOLE 40MG TAB (PROTONIX) PO SCH (08:22)
[2018-12-15 18:06] VITALS: BP 106/63
[2018-12-16 06:39] VITALS: BP 140/88
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
[2018-12-16] MEDS: PANTOPRAZOLE 40MG TAB (PROTONIX) PO SCH (09:50)
[2018-12-16] MEDS: BENZTROPINE 1 MG TAB PO SCH ×2 (09:50→20:10)
[2018-12-16] MEDS: HALOPERIDOL 5 MG TAB PO SCH ×2 (11:13→20:10)
[2018-12-17] MEDS: PANTOPRAZOLE 40MG TAB (PROTONIX) PO SCH (09:32)
[2018-12-17] MEDS: BENZTROPINE 1 MG TAB PO SCH ×2 (09:32→22:05)
[2018-12-17] MEDS: HALOPERIDOL 5 MG TAB PO SCH ×3 (09:32→22:05)
--- NOTE | 2018-12-17 14:43 | MHIPNPDOC ---
[facility] Progress Note Progress Note DATE OF SERVICE: 12/17/18 HISTORY: 63-year-old with long-standing history of schizophrenia. VITAL SIGNS: See below. NEW TEST RESULTS: None. CURRENT MEDICATIONS: See below. MENTAL STATUS EXAMINATION: Patient is a 63-year old male, who is. Beginning to show improvement in symptoms. Speech: Is, sporadic. Language skills are intact. Thought processes including: Paranoia and inconsistent. Thought content: Paranoia. Abstract reasoning, and computation: Not measured. Description of associations: Not loose. Description of abnormal or psychotic thoughts: Paranoia and delusions. Judgment:. Poor. Insight: Poor. Orientation: Full. Recent and remote memory: Hard to measure. Attention span and concentration: Hard to measure. Language: As above. Fund of knowledge:. Intact. Mood: Suspicious. Affect:, Congruent. DIAGNOSES: 1. Paranoid schizophrenia. . ASSESSMENT: Some improvement in his paranoid symptomatology and overt outbursts MANAGEMENT PLAN: Continue treatment with Haldol. Oral, which may have to accompany IM use TIME SPENT: 30 minutes. Vital Signs Vital Signs Date Time Temp Pulse Resp B/P (MAP) Pulse Ox O2 Delivery O2 Flow Rate FiO2 12/17/18 08:31 Room Air 12/16/18 06:39 97.6 67 16 140/88 (105) Current Medications Current Medications Acetaminophen (Tylenol Tab) 650 mg Q6HP PRN PO HEADACHE or DISCOMFORT; Start 12/09/18 at 13:45 Al Hydrox/Mg Hydrox/Simethicone (Mylanta) 30 ml Q4HP PRN PO HEARTBURN/INDIGESTION Last administered on 12/11/18at 20:58; Start 12/09/18 at 13 :45 Benztropine Mesylate (Cogentin) 1 mg BID PO Last administered on 12/17/18at 09:32; Start 12/12/18 at 09:00 Haloperidol (Haldol) 5 mg TID PO Last administered on 12/14/18at 08:38; Start 12/12/18 at 09:00; Stop 12/14/18 at 13:21; Status DC Haloperidol (Haldol) 7.5 mg TID PO Last administered on 12/15/18at 20:49; Start 12/14/18 at 16:00; Stop 12/16/18 at 09:19; Status DC Haloperidol (Haldol) 10 mg STAT STAT IM Last administered on 12/13/18at 01:35; Start 12/13/18 at 01:26; Stop 12/13/18 at 01:28; Status DC Haloperidol (Haldol) 10 mg TID PO Last administered on 12/17/18at 09:32; Start 12/16/18 at 12:00; Stop 12/26/18 at 11:59 Home Med (Med Rec Complete!) ASDIRECTED XX ; Start 12/09/18 at 14:00; Stop 12/09/18 at 14:00; Status DC Lorazepam (Ativan) 2 mg STAT STAT PO Last administered on 12/09/18at 11:58; Start 12/09/18 at 11:40; Stop 12/09/18 at 11:41; Status DC Magnesium Hydroxide (Milk Of Magnesia) 30 ml DAILYPRN PRN PO CONSTIPATION; Start 12/09/18 at 13:45 Miscellaneous (Unresolved Clarification Entry) SEE LABEL COMMENTS DAILY XX ; Start 12/10/18 at 09:00; Stop 12/10/18 at 14:48; Status DC Olanzapine (ZyPREXA ZYDIS) 5 mg Q6HP PRN PO AGITATION; Start 12/09/18 at 13:45 Paliperidone (Invega) 3 mg BID PO ; Start 12/09/18 at 09:00; Status Cancel Pantoprazole Sodium (Protonix) 40 mg DAILY PO Last administered on 12/17/18at 09:32; Start 12/10/18 at 09:00 Quetiapine Fumarate (SEROquel) 50 mg TID PO Last administered on 12/13/18at 08:41; Start 12/09/18 at 16:00; Stop 12/13/18 at 11:57; Status DC Trazodone HCl (Desyrel) 50 mg QHSP PRN PO INSOMNIA; Start 12/09/18 at 13:45 Allergies Coded Allergies: Penicillins (Verified Allergy, Unknown, 12/09/18) also penicillin cross reactors risperidone (Verified Allergy, Unknown, 12/09/18) A-FIB/CHADSVASC A-FIB History Current/History of A-Fib/PAF?: No Current PO Anticoag Therapy: No Treatment Treatment ordered: NONE JL CHOUDHURY MD December 17, 2018 14:43
[2018-12-17 18:38] VITALS: BP 131/86
[2018-12-18] MEDS: BENZTROPINE 1 MG TAB PO SCH ×2 (08:53→20:43)
[2018-12-18] MEDS: HALOPERIDOL 5 MG TAB PO SCH ×3 (08:53→20:43)
[2018-12-18] MEDS: PANTOPRAZOLE 40MG TAB (PROTONIX) PO SCH (09:00)
--- NOTE | 2018-12-18 14:50 | MHIPNPDOC ---
[facility] [place] [facility] Progress Note Progress Note DATE OF SERVICE: 12/18/18 HISTORY: Long history of paranoid schizophrenia. VITAL SIGNS: See below. NEW TEST RESULTS: None. CURRENT MEDICATIONS: See below. MENTAL STATUS EXAMINATION: Patient is a 63-year old male, who is suffering from paranoid schizophrenia and presently under treatment. Speech: Is stuttered. Language skills are intact. Thought processes including:, Paranoid hallucinations and delusions. Thought content: As above. Abstract reasoning, and computation:. No abstraction. Description of associations:, Loose association. Description of abnormal or psychotic thoughts: Psychotic thought is still present. Judgment:. Poor. Insight: Poor. Orientation: Intact. Recent and remote memory:. Unable to measure. Attention span and concentration: Poor. Language:. As above. Fund of knowledge: Intact. Mood: Irritable. Affect:, Angry. DIAGNOSES: 1., Paranoid schizophrenia. ASSESSMENT: As above MANAGEMENT PLAN:. Continue antipsychotic medications and attempt to establish baseline. TIME SPENT:, 30 minutes. Vital Signs Vital Signs Date Time Temp Pulse Resp B/P (MAP) Pulse Ox O2 Delivery O2 Flow Rate FiO2 12/17/18 18:38 98.5 69 16 131/86 (101) 12/17/18 08:31 Room Air Current Medications Current Medications Acetaminophen (Tylenol Tab) 650 mg Q6HP PRN PO HEADACHE or DISCOMFORT; Start 12/09/18 at 13:45 Al Hydrox/Mg Hydrox/Simethicone (Mylanta) 30 ml Q4HP PRN PO HEARTBURN/INDIGESTION Last administered on 12/11/18at 20:58; Start 12/09/18 at 13:45 Benztropine Mesylate (Cogentin) 1 mg BID PO Last administered on 12/18/18at 08:53; Start 12/12/18 at 09:00 Haloperidol (Haldol) 5 mg TID PO Last administered on 12/14/18at 08:38; Start 12/12/18 at 09:00; Stop 12/14/18 at 13:21; Status DC Haloperidol (Haldol) 7.5 mg TID PO Last administered on 12/15/18at 20:49; Start 12/14/18 at 16:00; Stop 12/16/18 at 09:19; Status DC Haloperidol (Haldol) 10 mg STAT STAT IM Last administered on 12/13/18at 01:35; Start 12/13/18 at 01:26; Stop 12/13/18 at 01:28; Status DC Haloperidol (Haldol) 10 mg TID PO Last administered on 12/18/18at 08:53; Start 12/16/18 at 12:00; Stop 12/26/18 at 11:59 Home Med (Med Rec Complete!) ASDIRECTED XX ; Start 12/09/18 at 14:00; Stop 12/09/18 at 14:00; Status DC Lorazepam (Ativan) 2 mg STAT STAT PO Last administered on 12/09/18at 11:58; Start 12/09/18 at 11:40; Stop 12/09/18 at 11:41; Status DC Magnesium Hydroxide (Milk Of Magnesia) 30 ml DAILYPRN PRN PO CONSTIPATION; Start 12/09/18 at 13:45 Miscellaneous (Unresolved Clarification Entry) SEE LABEL COMMENTS DAILY XX ; Start 12/10/18 at 09:00; Stop 12/10/18 at 14:48; Status DC Olanzapine (ZyPREXA ZYDIS) 5 mg Q6HP PRN PO AGITATION; Start 12/09/18 at 13:45 Paliperidone (Invega) 3 mg BID PO ; Start 12/09/18 at 09:00; Status Cancel Pantoprazole Sodium (Protonix) 40 mg DAILY PO Last administered on 12/17/18at 09:32; Start 12/10/18 at 09:00 Quetiapine Fumarate (SEROquel) 50 mg TID PO Last administered on 12/13/18at 08:41; Start 12/09/18 at 16:00; Stop 12/13/18 at 11:57; Status DC Trazodone HCl (Desyrel) 50 mg QHSP PRN PO INSOMNIA; Start 12/09/18 at 13:45 Allergies Coded Allergies: Penicillins (Verified Allergy, Unknown, 12/09/18) also penicillin cross reactors risperidone (Verified Allergy, Unknown, 12/09/18) A-FIB/CHADSVASC A-FIB History Current/History of A-Fib/PAF?: No Current PO Anticoag Therapy: No Treatment Treatment ordered: NONE Reason Anticoagulant not given: Other Other reason anticoagulant not: not required JL CHOUDHURY MD December 18, 2018 14:50
[2018-12-18 18:09] VITALS: BP 125/72
[2018-12-19 06:45] VITALS: BP 137/72
[2018-12-19] MEDS: BENZTROPINE 1 MG TAB PO SCH ×2 (07:59→22:00)
[2018-12-19] MEDS: HALOPERIDOL 5 MG TAB PO SCH ×3 (07:59→22:00)
[2018-12-19] MEDS: PANTOPRAZOLE 40MG TAB (PROTONIX) PO SCH (08:00)
[2018-12-19] MEDS: MOM 30ML SUSPENSION UDC PO PRN (10:25)
[2018-12-19 18:19] VITALS: BP 152/60
[2018-12-19] MEDS: DOCUSATE SODIUM 100 MG CAP PO SCH (22:00)
[2018-12-20 06:25] VITALS: BP 147/79
[2018-12-20] MEDS: HALOPERIDOL 5 MG TAB PO SCH ×3 (09:00→21:00)
[2018-12-20] MEDS: PANTOPRAZOLE 40MG TAB (PROTONIX) PO SCH (09:00)
--- NOTE | 2018-12-20 10:20 | MHIPNPDOC ---
[facility] Progress Note Progress Note DATE OF SERVICE: 12/20/18 HISTORY: Long history of schizophrenia. VITAL SIGNS: See below. NEW TEST RESULTS: . CURRENT MEDICATIONS: See below. MENTAL STATUS EXAMINATION: Patient is a, 63-year old male, who is, showing improvement from his admission symptoms. Speech: Is normal. Language skills are. Normal. Thought processes including: Angry and complaining about his neuroleptics. Thought content: As above. Abstract reasoning, and computation:. Poor abstract reasoning. Description of associations:, Loose association. Description of abnormal or psychotic thoughts:, Decreased delusions and hallucinations. Judgment: Improved. Insight:. Fair. Orientation: Intact 3. Recent and remote memory: Apparently intact. Attention span and concentration: Normal. Language:. No disturbance. Fund of knowledge: Intact. Mood: Labile. Affect:, Congruent. DIAGNOSES: 1. Schizophrenia. ASSESSMENT: 63-year-old who is resistant to oral neuroleptics but is improving significantly. He will be getting a decanoate shot after refusing it early in admission. Today he asked for it. MANAGEMENT PLAN: We'll give him to can await shot if he continues to agree, but it still raises the question of his Haldol IM GARRIDO effective for this man. TIME SPENT: 30 minutes. Vital Signs Vital Signs Date Time Temp Pulse Resp B/P (MAP) Pulse Ox O2 Delivery O2 Flow Rate FiO2 12/20/18 06:25 97.8 54 14 147/79 (101) 12/17/18 08:31 Room Air Current Medications Current Medications Acetaminophen (Tylenol Tab) 650 mg Q6HP PRN PO HEADACHE or DISCOMFORT Last administered on 12/19/18at 10:27; Start 12/09/18 at 13:45 Al Hydrox/Mg Hydrox/Simethicone (Mylanta) 30 ml Q4HP PRN PO HEARTBURN/INDIGESTION Last administered on 12/11/18at 20:58; Start 12/09/18 at 13:45 Benztropine Mesylate (Cogentin) 1 mg BID PO Last administered on 12/19/18at 22:00; Start 12/12/18 at 09:00 Docusate Sodium (Colace) 100 mg BID PO Last administered on 12/19/18at 22:00; Start 12/19/18 at 21:00 Haloperidol (Haldol) 5 mg TID PO Last administered on 12/14/18 08:38; Start 12/12/18 at 09:00; Stop 12/14/18 at 13:21; Status DC Haloperidol (Haldol) 7.5 mg TID PO Last administered on 12/15/18at 20:49; Start 12/14/18 at 16:00; Stop 12/16/18 at 09:19; Status DC Haloperidol (Haldol) 10 mg STAT STAT IM Last administered on 12/13/18at 01:35; Start 12/13/18 at 01:26; Stop 12/13/18 at 01:28; Status DC Haloperidol (Haldol) 10 mg TID PO Last administered on 12/19/18 22:00; Start 12/16/18 at 12:00; Stop 12/26/18 at 11:59 Home Med (Med Rec Complete!) ASDIRECTED XX ; Start 12/09/18 at 14:00; Stop 12/09/18 at 14:00; Status DC Lorazepam (Ativan) 2 mg STAT STAT PO Last administered on 12/09/18at 11:58; Start 12/09/18 at 11:40; Stop 12/09/18 at 11:41; Status DC Magnesium Hydroxide (Milk Of Magnesia) 30 ml DAILYPRN PRN PO CONSTIPATION Last administered on 12/19/18at 10:25; Start 12/09/18 at 13:45 Miscellaneous (Unresolved Clarification Entry) SEE LABEL COMMENTS DAILY XX ; Start 12/10/18 at 09:00; Stop 12/10/18 at 14:48; Status DC Olanzapine (ZyPREXA ZYDIS) 5 mg Q6HP PRN PO AGITATION; Start 12/09/18 at 13:45 Paliperidone (Invega) 3 mg BID PO ; Start 12/09/18 at 09:00; Status Cancel Pantoprazole Sodium (Protonix) 40 mg DAILY PO Last administered on 12/17/18at 09:32; Start 12/10/18 at 09:00 Quetiapine Fumarate (SEROquel) 50 mg TID PO Last administered on 12/13/18at 08:41; Start 12/09/18 at 16:00; Stop 12/13/18 at 11:57; Status DC Trazodone HCl (Desyrel) 50 mg QHSP PRN PO INSOMNIA; Start 12/09/18 at 13:45 Allergies Coded Allergies: Penicillins (Verified Allergy, Unknown, 12/09/18) also penicillin cross reactors risperidone (Verified Allergy, Unknown, 12/09/18) JL CHOUDHURY MD December 20, 2018 10:20
[2018-12-20] MEDS ORDERED: HALOPERIDOL DECANOATE 100 MG/ML VIAL (J1631) IM ONE (11:00)
[2018-12-20] MEDS: BENZTROPINE 1 MG TAB PO SCH ×2 (11:44→21:34)
[2018-12-20] MEDS: DOCUSATE SODIUM 100 MG CAP PO SCH ×2 (11:45→21:33)
[2018-12-20 18:17] VITALS: BP 142/83
[2018-12-21 06:35] VITALS: BP 138/76
[2018-12-21 06:56] VITALS: BP 138/76
--- NOTE | 2018-12-21 08:02 | MHIPNPDOC ---
[facility] Progress Note Progress Note DATE OF SERVICE: 12/21/18 HISTORY: 63-year-old male with chronic schizophrenia. Night and day. Staff continue to report improvement. Patient continues to be polite and outbursts are minimal. Patient received IM long-acting injection yesterday. VITAL SIGNS: See below. NEW TEST RESULTS: None. CURRENT MEDICATIONS: See below. MENTAL STATUS EXAMINATION: Patient is a 63-year old male, who is. Being treated for chronic schizophrenia Speech: Is poverty of speech. Language skills are, intact. Thought processes including:. Some continued paranoia and religiosity. Thought content: Paranoia and religiosity. Abstract reasoning, and computation:. Minimal abstraction. Description of associations:. No loose association. Description of abnormal or psychotic thoughts:. As above. Judgment:, Poor. Insight:, Poor. Orientation: Intact 3. Recent and remote memory:. Difficult to measure. Attention span and concentration: Poor. Patient walks away from any 2 sentence conversation. Language:, Intact. Fund of knowledge:, Intact. Mood: Euthymic. Affect:, Irritated. DIAGNOSES: 1. Schizophrenia. . ASSESSMENT: As above MANAGEMENT PLAN:. Continue oral Haldol in addition to IM shot yesterday concern that long-acting may not be enough for this gentleman and that his compliance may stop him from using oral medication. TIME SPENT: 30 minutes. Vital Signs Vital Signs Date Time Temp Pulse Resp B/P (MAP) Pulse Ox O2 Delivery O2 Flow Rate FiO2 12/21/18 06:35 97.9 62 12 138/76 (96) 12/17/18 08:31 Room Air Current Medications Current Medications Acetaminophen (Tylenol Tab) 650 mg Q6HP PRN PO HEADACHE or DISCOMFORT Last ad ministered on 12/19/18at 10:27; Start 12/09/18 at 13:45 Al Hydrox/Mg Hydrox/Simethicone (Mylanta) 30 ml Q4HP PRN PO HEARTBURN/IN DIGESTION Last administered on 12/11/18at 20:58; Start 12/09/18 at 13:45 Benztropine Mesylate (Cogentin) 1 mg BID PO Last administered on 12/20/18at 21:34; Start 12/12/18 at 09:00 Docusate Sodium (Colace) 100 mg BID PO Last administered on 12/20/18at 21:33; Start 12/19/18 at 21:00 Haloperidol (Haldol) 5 mg TID PO Last administered on 12/14/18 08:38; Start 12/12/18 at 09:00; Stop 12/14/18 at 13:21; Status DC Haloperidol (Haldol) 7.5 mg TID PO Last administered on 12/15/18at 20:49; Start 12/14/18 at 16:00; Stop 12/16/18 at 09:19; Status DC Haloperidol (Haldol) 10 mg STAT STAT IM Last administered on 12/13/18at 01:35; Start 12/13/18 at 01:26; Stop 12/13/18 at 01:28; Status DC Haloperidol (Haldol) 10 mg TID PO Last administered on 12/19/18at 22:00; Start 12/16/18 at 12:00; Stop 12/26/18 at 11:59 Home Med (Med Rec Complete!) ASDIRECTED XX ; Start 12/09/18 at 14:00; Stop 12/09/18 at 14:00; Status DC Lorazepam (Ativan) 2 mg STAT STAT PO Last administered on 12/09/18at 11:58; Start 12/09/18 at 11:40; Stop 12/09/18 at 11:41; Status DC Magnesium Hydroxide (Milk Of Magnesia) 30 ml DAILYPRN PRN PO CONSTIPATION Last administered on 12/19/18at 10:25; Start 12/09/18 at 13:45 Miscellaneous (Unresolved Clarification Entry) SEE LABEL COMMENTS DAILY XX ; Start 12/10/18 at 09:00; Stop 12/10/18 at 14:48; Status DC Olanzapine (ZyPREXA ZYDIS) 5 mg Q6HP PRN PO AGITATION; Start 12/09/18 at 13:45 Paliperidone (Invega) 3 mg BID PO ; Start 12/09/18 at 09:00; Status Cancel Pantoprazole Sodium (Protonix) 40 mg DAILY PO Last administered on 12/17/18at 09:32; Start 12/10/18 at 09:00 Quetiapine Fumarate (SEROquel) 50 mg TID PO Last administered on 12/13/18at 08:41; Start 12/09/18 at 16:00; Stop 12/13/18 at 11:57; Status DC Trazodone HCl (Desyrel) 50 mg QHSP PRN PO INSOMNIA; Start 12/09/18 at 13:45 Allergies Coded Allergies: Penicillins (Verified Allergy, Unknown, 12/09/18) also penicillin cross reactors risperidone (Verified Allergy, Unknown, 12/09/18) JL CHOUDHURY MD December 21, 2018 08:02
[2018-12-21] MEDS: HALOPERIDOL 10 MG TAB PO SCH ×2 (09:00→21:00)
[2018-12-21] MEDS: PANTOPRAZOLE 40MG TAB (PROTONIX) PO SCH (09:00)
[2018-12-21] MEDS: DOCUSATE SODIUM 100 MG CAP PO SCH ×2 (11:37→22:35)
[2018-12-21] MEDS: BENZTROPINE 1 MG TAB PO SCH ×2 (11:37→22:35)
[2018-12-21] MEDS ORDERED: HALOPERIDOL 5 MG TAB PO SCH ×2 (12:00→21:00)
[2018-12-21 19:29] VITALS: BP 116/65
[2018-12-21] MEDS: traZODone 50 MG TAB PO PRN (22:35)
[2018-12-21] MEDS: CEPACOL LOZENGE PO PRN (23:27)
[2018-12-22 07:23] VITALS: BP 134/60
[2018-12-22] MEDS: HALOPERIDOL 10 MG TAB PO SCH ×2 (09:00→20:25)
[2018-12-22] MEDS: PANTOPRAZOLE 40MG TAB (PROTONIX) PO SCH (09:00)
--- NOTE | 2018-12-22 09:16 | MHIPNPDOC ---
[facility] Progress Note Progress Note DATE OF SERVICE: 12/22/18 HISTORY: 63-year-old male with chronic schizophrenia with recent decompensation. VITAL SIGNS: See below. NEW TEST RESULTS: None CURRENT MEDICATIONS: See below. MENTAL STATUS EXAMINATION: Patient is a 63-year old male, who is being treated for schizophrenia with oral Haldol which has now been discontinued and patient has received IM shot. Speech: Is brief. Language skills are, characterized by brief statements. Some friendly and some persecuted. Thought processes including: As above. Thought content: As above. Abstract reasoning, and computation:. Abstract reas oning intact. Description of associations:. Loose association. Description of abnormal or psychotic thoughts:, Persecutory thoughts continue, but diminished. Judgment: Fair. Insight: Poor. Orientation: Intact 3. Recent and remote memory:. Intact. Attention span and concentration: Poor. Language: Intact. Fund of knowledge: Complete as best as can be determined. Mood:, Euthymic. Affect:, Congruent. DIAGNOSES: 1. Schizophrenia. ASSESSMENT: 63-year-old male diagnosed with schizophrenia significantly improved on oral Haldol and given IM injection. Question is whether intramuscular shot is enough to maintain him with decreased symptoms MANAGEMENT PLAN:. Discharge planning to begin. TIME SPENT: 30 minutes. Vital Signs Vital Signs Date Time Temp Pulse Resp B/P (MAP) Pulse Ox O2 Delivery O2 Flow Rate FiO2 12/22/18 07:23 97.5 60 16 134/60 (84) 12/17/18 08:31 Room Air Current Medications Current Medications Acetaminophen (Tylenol Tab) 650 mg Q6HP PRN PO HEADACHE or DISCOMFORT Last administered on 12/19/18at 10:27; Start 12/09/18 at 13:45 Al Hydrox/Mg Hydrox/Simethicone (Mylanta) 30 ml Q4HP PRN PO HEARTBURN/INDIGESTION Last administered on 12/11/18at 20:58; Start 12/09/18 at 13:45 Benztropine Mesylate (Cogentin) 1 mg BID PO Last administered on 12/21/18at 22:35; Start 12/12/18 at 09:00 Cetylpyridinium Chloride (Cepacol) 1 emily Q2HP PRN PO SORE THROAT Last administered on 12/21/18at 23:27; Start 12/21/18 at 21:15 Docusate Sodium (Colace) 100 mg BID PO Last administered on 12/21/18at 22:35; Start 12/19/18 at 21:00 Haloperidol (Haldol) 5 mg TID PO Last administered on 12/14/18at 08:38; Start 12/12/18 at 09:00; Stop 12/14/18 at 13:21; Status DC Haloperidol (Haldol) 7.5 mg TID PO Last administered on 12/15/18at 20:49; Start 12/14/18 at 16:00; Stop 12/16/18 at 09:19; Status DC Haloperidol (Haldol) 10 mg BID PO ; Start 12/21/18 at 09:00 Haloperidol (Haldol) 10 mg BID PO ; Start 12/21/18 at 21:00; Stop 12/21/18 at 21:00; Status DC Haloperidol (Haldol) 10 mg STAT STAT IM Last administered on 12/13/18at 01:35; Start 12/13/18 at 01:26; Stop 12/13/18 at 01:28; Status DC Haloperidol (Haldol) 10 mg TID PO Last administered on 12/19/18at 22:00; Start 12/16/18 at 12:00; Stop 12/21/18 at 10:25; Status DC Haloperidol (Haldol) 10 mg TID PO ; Start 12/21/18 at 12:00; Stop 12/21/18 at 12:00; Status DC Home Med (Med Rec Complete!) ASDIRECTED XX ; Start 12/09/18 at 14:00; Stop 12/09/18 at 14:00; Status DC Lorazepam (Ativan) 2 mg STAT STAT PO Last administered on 12/09/18at 11:58; Start 12/09/18 at 11:40; Stop 12/09/18 at 11:41; Status DC Magnesium Hydroxide (Milk Of Magnesia) 30 ml DAILYPRN PRN PO CONSTIPATION Last administered on 12/19/18at 10:25; Start 12/09/18 at 13:45 Miscellaneous (Unresolved Clarification Entry) SEE LABEL COMMENTS DAILY XX ; Start 12/10/18 at 09:00; Stop 12/10/18 at 14:48; Status DC Olanzapine (ZyPREXA ZYDIS) 5 mg Q6HP PRN PO AGITATION; Start 12/09/18 at 13:45 Paliperidone (Invega) 3 mg BID PO ; Start 12/09/18 at 09:00; Status Cancel Pantoprazole Sodium (Protonix) 40 mg DAILY PO Last administered on 12/17/18at 09:32; Start 12/10/18 at 09:00 Quetiapine Fumarate (SEROquel) 50 mg TID PO Last administered on 12/13/18at 08:41; Start 12/09/18 at 16:00; Stop 12/13/18 at 11:57; Status DC Trazodone HCl (Desyrel) 50 mg QHSP PRN PO INSOMNIA Last administered on 12/21at 22:35; Start 12/09/18 at 13:45 Allergies Coded Allergies: Penicillins (Verified Allergy, Unknown, 12/09/18) also penicillin cross reactors risperidone (Verified Allergy, Unknown, 12/09/18) JL CHOUDHURY MD December 22, 2018 09:16
[2018-12-22] MEDS: BENZTROPINE 1 MG TAB PO SCH ×2 (10:01→20:25)
[2018-12-22] MEDS: DOCUSATE SODIUM 100 MG CAP PO SCH ×2 (10:02→20:25)
[2018-12-22] MEDS: CEPACOL LOZENGE PO PRN ×3 (10:15→20:25)
[2018-12-22 19:09] VITALS: BP 142/88
[2018-12-22] MEDS: MOM 30ML SUSPENSION UDC PO PRN (20:24)
[2018-12-22] MEDS: MAALOX 30 ML SUSP *UDC PO PRN (20:25)
[2018-12-22] MEDS: traZODone 50 MG TAB PO PRN (20:25)
[2018-12-23] MEDS: PANTOPRAZOLE 40MG TAB (PROTONIX) PO SCH (09:00)
[2018-12-23] MEDS: HALOPERIDOL 10 MG TAB PO SCH ×2 (09:00→20:58)
[2018-12-23] MEDS: BENZTROPINE 1 MG TAB PO SCH ×2 (09:35→20:57)
[2018-12-23] MEDS: DOCUSATE SODIUM 100 MG CAP PO SCH ×2 (09:35→20:57)
[2018-12-23] MEDS ORDERED: TUBERCULIN PPD 5 UNITS/0.1 ML ID ONE ×2 (11:15→11:45)
--- NOTE | 2018-12-23 11:15 | MHIPNPDOC ---
[facility] Progress Note Progress Note DATE OF SERVICE: 12/23/18 HISTORY: Patient is a 63 -year-old , male, with a psych history of paranoid schizophrenia and multiple admission [facility] and [facility] who was brought to ED by his sister due to psychotic, paranoid, religiously preoccupied symptoms. Per ED pt stopped taking his medications and following up at [facility] b/c "I didn't want to" and "I'm allergic to all psychotropics." Pt's sister also told ED that pt warned her to not come in his apt b/c she will be in danger and that his landlord called her to inform her that pt has been knocking on tenant's doors, yelling and preaching to them. 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 Pt is a very poor historian so history gathered from ED report of evaluation. VITAL SIGNS: See below. NEW TEST RESULTS: None CURRENT MEDICATIONS: See below. MENTAL STATUS EXAMINATION: Patient is a 63-year old male, who is being treated for schizophrenia oral Haldol and patient has received IM shot. Speech: Is brief. Language skills are, characterized by brief statements. Some friendly and some persecuted. Thought processes including: As above. Thought content: lutheran and sexual preoccupied thoughts talking of God and [place] today. Abstract reasoning, and computation: limited. Description of associations:. Loose association. Description of abnormal or psychotic thoughts:, Persecutory thoughts continue, but diminished.lutheran and sexual preoccupied thoughts Judgment: Fair. Insight: Poor. Orientation: Intact 3. Recent and remote memory:. Intact. Attention span and concentration: Poor. Language: Intact. Fund of knowledge: Complete as best as can be determined. Mood: Euthymic. Affect: Congruent. DIAGNOSES: 1. Schizophrenia. ASSESSMENT: 63-year-old male diagnosed with schizophrenia improved on oral Haldol and given IM injection although continues to have lutheran and sexual preoccupied thoughts talking of God and [place] today. Continues to be bizarre and odd mannerisms. If continues will change oral haldol to 5mg tid tomorrow. MANAGEMENT PLAN:. Discharge planning to begin. Current Medications Cogentin 1 mg BID Haldol 10 mg BID ZyPREXA ZYDIS 5 mg Q6HP PRN PO AGITATION Trazodone Desyrel 50 mg QHSP PRN PO INSOMNIA Haldol decanoate 300mg IM on 12/20/18 TIME SPENT: 30 minutes. Vital Signs Vital Signs Date Time Temp Pulse Resp B/P (MAP) Pulse Ox O2 Delivery O2 Flow Rate FiO2 12/22/18 19:09 97.8 79 16 142/88 (106) 12/17/18 08:31 Room Air Current Medications Current Medications Acetaminophen (Tylenol Tab) 650 mg Q6HP PRN PO HEADACHE or DISCOMFORT Last administered on 12/19/18 10:27; Start 12/09/18 at 13:45 Al Hydrox/Mg Hydrox/Simethicone (Mylanta) 30 ml Q4HP PRN PO HEARTBURN/INDIGESTION Last administered on 12/22/18 20:25; Start 12/09/18 at 13:45 Benztropine Mesylate (Cogentin) 1 mg BID PO Last administered on 12/23/18at 09:35; Start 12/12/18 at 09:00 Cetylpyridinium Chloride (Cepacol) 1 emily Q2HP PRN PO SORE THROAT Last administered on 12/22/18 20:25; Start 12/21/18 at 21:15 Docusate Sodium (Colace) 100 mg BID PO Last administered on 12/23/18at 09:35; Start 12/19/18 at 21:00 Haloperidol (Haldol) 5 mg TID PO Last administered on 12/14/18 08:38; Start 12/12/18 at 09:00; Stop 12/14/18 at 13:21; Status DC Haloperidol (Haldol) 7.5 mg TID PO Last administered on 12/15/18at 20:49; Start 12/14/18 at 16:00; Stop 12/16/18 at 09:19; Status DC Haloperidol (Haldol) 10 mg BID PO ; Start 12/21/18 at 09:00 Haloperidol (Haldol) 10 mg BID PO ; Start 12/21/18 at 21:00; Stop 12/21/18 at 21:00; Status DC Haloperidol (Haldol) 10 mg STAT STAT IM Last administered on 12/13/18at 01:35; Start 12/13/18 at 01:26; Stop 12/13/18 at 01:28; Status DC Haloperidol (Haldol) 10 mg TID PO Last administered on 12/19/18 22:00; Start 12/16/18 at 12:00; Stop 12/21/18 at 10:25; Status DC Haloperidol (Haldol) 10 mg TID PO ; Start 12/21/18 at 12:00; Stop 12/21/18 at 12:00; Status DC Home Med (Med Rec Complete!) ASDIRECTED XX ; Start 12/09/18 at 14:00; Stop 12/09/18 at 14:00; Status DC Lorazepam (Ativan) 2 mg STAT STAT PO Last administered on 12/09/18at 11:58; Start 12/09/18 at 11:40; Stop 12/09/18 at 11:41; Status DC Magnesium Hydroxide (Milk Of Magnesia) 30 ml DAILYPRN PRN PO CONSTIPATION Last administered on 12/22/18at 20:24; Start 12/09/18 at 13:45 Miscellaneous (Unresolved Clarification Entry) SEE LABEL COMMENTS DAILY XX ; Start 12/10/18 at 09:00; Stop 12/10/18 at 14:48; Status DC Olanzapine (ZyPREXA ZYDIS) 5 mg Q6HP PRN PO AGITATION; Start 12/09/18 at 13:45 Paliperidone (Invega) 3 mg BID PO ; Start 12/09/18 at 09:00; Status Cancel Pantoprazole Sodium (Protonix) 40 mg DAILY PO Last administered on 12/17/18at 09:32; Start 12/10/18 at 09:00 Quetiapine Fumarate (SEROquel) 50 mg TID PO Last administered on 12/13/18at 08:41; Start 12/09/18 at 16:00; Stop 12/13/18 at 11:57; Status DC Trazodone HCl (Desyrel) 50 mg QHSP PRN PO INSOMNIA Last administered on 12/22/18at 20:25; Start 12/09/18 at 13:45 Allergies Coded Allergies: Penicillins (Verified Allergy, Unknown, 12/09/18) also penicillin cross reactors risperidone (Verified Allergy, Unknown, 12/09/18) KEARA PARTIDA DO December 23, 2018 11:15 am
[2018-12-23] MEDS: **PENDING PPD ENTRY XX SCH (13:20)
[2018-12-23] MEDS: MOM 30ML SUSPENSION UDC PO PRN (14:10)
[2018-12-23 18:05] VITALS: BP 126/81
--- NOTE | 2018-12-23 20:24 | NUR ---
Seen for confirmatory consult. See Certificate of Examining Physician.
[2018-12-23] MEDS: MAALOX 30 ML SUSP *UDC PO PRN (20:57)
[2018-12-24 06:32] VITALS: BP 109/59
[2018-12-24] MEDS: DOCUSATE SODIUM 100 MG CAP PO SCH ×2 (09:00→20:39)
[2018-12-24] MEDS: **PENDING PPD ENTRY XX SCH (09:00)
[2018-12-24] MEDS: HALOPERIDOL 10 MG TAB PO SCH ×4 (09:00→20:42)
[2018-12-24] MEDS: BENZTROPINE 1 MG TAB PO SCH ×2 (09:00→20:39)
[2018-12-24] MEDS: PANTOPRAZOLE 40MG TAB (PROTONIX) PO SCH (09:00)
--- NOTE | 2018-12-24 10:46 | MHIPNPDOC ---
[facility] Progress Note Progress Note DATE OF SERVICE: 12/24/18 HISTORY: Patient is a 63 -year-old , male, with a psych history of paranoid schizophrenia and multiple admission [facility] and [facility] who was brought to ED by his sister due to psychotic, paranoid, religiously preoccupied symptoms. Per ED pt stopped taking his medications and following up at [facility] b/c "I didn't want to" and "I'm allergic to all psychotropics." Pt's sister also told ED that pt warned her to not come in his apt b/c she will be in danger and that his landlord called her to inform her that pt has been knocking on tenant's doors, yelling and preaching to them. 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 Pt is a very poor historian so history gathered from ED report of evaluation. VITAL SIGNS: See below. NEW TEST RESULTS: None CURRENT MEDICATIONS: See below. MENTAL STATUS EXAMINATION: Patient is a 63-year old male, who is being treated for schizophrenia oral Haldol and patient has received IM shot. No change since yesterday Speech: Is brief. Language skills are, characterized by brief statements. Some friendly and some persecuted. Thought processes including: As above. Thought content: religion and sexual preoccupied thoughts talking of God and [place] today. Abstract reasoning, and computation: limited. Description of associations:. Loose association. Description of abnormal or psychotic thoughts:, Persecutory thoughts continue, but diminished.religion and sexual preoccupied thoughts Judgment: Fair. Insight: Poor. Orientation: Intact 3. Recent and remote memory:. Intact. Attention span and concentration: Poor. Language: Intact. Fund of knowledge: Complete as best as can be determined. Mood: Euthymic. Affect: Congruent. DIAGNOSES: 1. Schizophrenia. ASSESSMENT: 63-year-old male diagnosed with schizophrenia improved on oral Haldol and given IM injection although continues to have religion and sexual preoccupied thoughts talking of God and [place] today. No change from yesterday. Continues to be bizarre and odd mannerisms. MANAGEMENT PLAN:haldol to 10mg tid Current Medications Cogentin 1 mg BID Haldol 10 mg tid ZyPREXA ZYDIS 5 mg Q6HP PRN PO AGITATION Trazodone Desyrel 50 mg QHSP PRN PO INSOMNIA Haldol decanoate 300mg IM on 12/20/18 TIME SPENT: 30 minutes. Vital Signs Vital Signs Date Time Temp Pulse Resp B/P (MAP) Pulse Ox O2 Delivery O2 Flow Rate FiO2 12/24/18 08:20 Room Air 12/24/18 06:32 98.4 64 16 109/59 (76) Current Medications Current Medications Acetaminophen (Tylenol Tab) 650 mg Q6HP PRN PO HEADACHE or DISCOMFORT Last administered on 12/19/18 10:27; Start 12/09/18 at 13:45 Al Hydrox/Mg Hydrox/Simethicone (Mylanta) 30 ml Q4HP PRN PO HEARTBURN/INDIGESTION Last administered on 12/23/18at 20:57; Start 12/09/18 at 13:45 Benztropine Mesylate (Cogentin) 1 mg BID PO Last administered on 12/23/18at 20:57; Start 12/12/18 at 09:00 Cetylpyridinium Chloride (Cepacol) 1 emily Q2HP PRN PO SORE THROAT Last administered on 12/22/18 20:25; Start 12/21/18 at 21:15 Docusate Sodium (Colace) 100 mg BID PO Last administered on 12/23/18at 20:57; Start 12/19/18 at 21:00 Haloperidol (Haldol) 5 mg TID PO Last administered on 12/14/18 08:38; Start 12/12/18 at 09:00; Stop 12/14/18 at 13:21; Status DC Haloperidol (Haldol) 7.5 mg TID PO Last administered on 12/15/18at 20:49; Start 12/14/18 at 16:00; Stop 12/16/18 at 09:19; Status DC Haloperidol (Haldol) 10 mg BID PO ; Start 12/21/18 at 09:00 Haloperidol (Haldol) 10 mg BID PO ; Start 12/21/18 at 21:00; Stop 12/21/18 at 21:00; Status DC Haloperidol (Haldol) 10 mg STAT STAT IM Last administered on 12/13/18at 01:35; Start 12/13/18 at 01:26; Stop 12/13/18 at 01:28; Status DC Haloperidol (Haldol) 10 mg TID PO Last administered on 12/19/18at 22:00; Start 12/16/18 at 12:00; Stop 12/21/18 at 10:25; Status DC Haloperidol (Haldol) 10 mg TID PO ; Start 12/21/18 at 12:00; Stop 12/21/18 at 12:00; Status DC Home Med (Med Rec Complete!) ASDIRECTED XX ; Start 12/09/18 at 14:00; Stop 12/09/18 at 14:00; Status DC Lorazepam (Ativan) 2 mg STAT STAT PO Last administered on 12/09/18at 11:58; Start 12/09/18 at 11:40; Stop 12/09/18 at 11:41; Status DC Magnesium Hydroxide (Milk Of Magnesia) 30 ml DAILYPRN PRN PO CONSTIPATION Last administered on 12/23/18at 14:10; Start 12/09/18 at 13:45 Miscellaneous (Unresolved Clarification Entry) SEE LABEL COMMENTS DAILY XX ; Start 12/10/18 at 09:00; Stop 12/10/18 at 14:48; Status DC Non-Formulary Medication ( See Comment Field Below ) SEE COMMENTS SECTION 1T@10 XX ; Start 12/25/18 at 10:00; Stop 12/26/18 at 09:59; Status UNV Non-Formulary Medication ( See Comment Field Below ) SEE LABEL COMMENTS DAILY XX ; Start 12/23/18 at 09:00 Olanzapine (ZyPREXA ZYDIS) 5 mg Q6HP PRN PO AGITATION; Start 12/09/18 at 13:45 Paliperidone (Invega) 3 mg BID PO ; Start 12/09/18 at 09:00; Status Cancel Pantoprazole Sodium (Protonix) 40 mg DAILY PO Last administered on 12/17/18at 09:32; Start 12/10/18 at 09:00 Quetiapine Fumarate (SEROquel) 50 mg TID PO Last administered on 12/13/18at 08:41; Start 12/09/18 at 16:00; Stop 12/13/18 at 11:57; Status DC Trazodone HCl (Desyrel) 50 mg QHSP PRN PO INSOMNIA Last administered on 12/22/18at 20:25; Start 12/09/18 at 13:45 Allergies Coded Allergies: Penicillins (Verified Allergy, Unknown, 12/09/18) also penicillin cross reactors risperidone (Verified Allergy, Unknown, 12/09/18) KEARA PARTIDA DO December 24, 2018 09:25
[2018-12-24 18:05] VITALS: BP 134/71
[2018-12-25 06:38] VITALS: BP 127/83
[2018-12-25] MEDS: HALOPERIDOL 10 MG TAB PO SCH ×3 (09:00→20:51)
[2018-12-25] MEDS: **PENDING PPD ENTRY XX SCH (09:00)
[2018-12-25] MEDS: PANTOPRAZOLE 40MG TAB (PROTONIX) PO SCH (09:00)
[2018-12-25] MEDS: DOCUSATE SODIUM 100 MG CAP PO SCH ×2 (09:21→20:49)
[2018-12-25] MEDS: BENZTROPINE 1 MG TAB PO SCH ×2 (09:21→20:49)
[2018-12-25] MEDS ORDERED: PPD DOCUMENTATION ENTRY MISC XX SCH (10:00)
--- NOTE | 2018-12-25 10:28 | MHIPNPDOC ---
[facility] Progress Note Progress Note DATE OF SERVICE: 12/25/18 HISTORY: Patient is a 63 -year-old , male, with a psych history of paranoid schizophrenia and multiple admission [facility] and [facility] who was brought to ED by his sister due to psychotic, paranoid, religiously preoccupied symptoms. Per ED pt stopped taking his medications and following up at [facility] b/c "I didn't want to" and "I'm allergic to all psychotropics." Pt's sister also told ED that pt warned her to not come in his apt b/c she will be in danger and that his landlord called her to inform her that pt has been knocking on tenant's doors, yelling and preaching to them. 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 Pt is a very poor historian so history gathered from ED report of evaluation. VITAL SIGNS: See below. NEW TEST RESULTS: None CURRENT MEDICATIONS: See below. MENTAL STATUS EXAMINATION: Patient is a 63-year old male, who is being treated for schizophrenia oral Haldol and patient has received IM shot. No change since yesterday Speech: Is brief. Language skills are, characterized by brief statements. Some friendly and some persecuted. Thought processes including: As above. Thought content: synagogue (less today) and sexual preoccupied thoughts talking of God and [place] today. Abstract reasoning, and computation: limited. Description of associations:. Loose association. Description of abnormal or psychotic thoughts:, Persecutory thoughts continue, but diminished.synagogue (less today) and sexual preoccupied thoughts, paranoia regarding meds and possibly people in milieu Judgment: Fair. Insight: Poor. Orientation: Intact 3. Recent and remote memory:. Intact. Attention span and concentration: Poor. Language: Intact. Fund of knowledge: Complete as best as can be determined. Mood: Euthymic. Affect: Congruent. DIAGNOSES: 1. Schizophrenia. ASSESSMENT: 63-year-old male diagnosed with schizophrenia improved on oral Asad dol and given IM injection although continues to have synagogue (less today) and sexual preoccupied thoughts. Stated today that had haldol dec "a few days ago" when asked then stated he's allergic to it (most likely paranoia) which he isn't. No change from yesterday. Continues to be bizarre and odd mannerisms. Was reading/looking at a book, sitting in door way of his room looking out into the [place]. Paranoid MANAGEMENT PLAN:continue plan. Current Medications Cogentin 1 mg BID Haldol 10 mg tid ZyPREXA ZYDIS 5 mg Q6HP PRN PO AGITATION Trazodone Desyrel 50 mg QHSP PRN PO INSOMNIA Haldol decanoate 300mg IM on 12/20/18 TIME SPENT: 30 minutes. Vital Signs Vital Signs Date Time Temp Pulse Resp B/P (MAP) Pulse Ox O2 Delivery O2 Flow Rate FiO2 12/25/18 08:45 Room Air 12/25/18 06:38 98.4 79 16 127/83 (98) Current Medications Current Medications Acetaminophen (Tylenol Tab) 650 mg Q6HP PRN PO HEADACHE or DISCOMFORT Last administered on 12/19/18 10:27; Start 12/09/18 at 13:45 Al Hydrox/Mg Hydrox/Simethicone (Mylanta) 30 ml Q4HP PRN PO HEARTBURN/INDIGESTION Last administered on 12/23/18 20:57; Start 12/09/18 at 13:45 Benztropine Mesylate (Cogentin) 1 mg BID PO Last administered on 12/25/18 09:21; Start 12/12/18 at 09:00 Cetylpyridinium Chloride (Cepacol) 1 emily Q2HP PRN PO SORE THROAT Last administered on 12/22/18at 20:25; Start 12/21/18 at 21:15 Docusate Sodium (Colace) 100 mg BID PO Last administered on 12/25/18 09:21; Start 12/19/18 at 21:00 Haloperidol (Haldol) 5 mg TID PO Last administered on 12/14/18 08:38; Start 12/12/18 at 09:00; Stop 12/14/18 at 13:21; Status DC Haloperidol (Haldol) 7.5 mg TID PO Last administered on 12/15/18at 20:49; Start 12/14/18 at 16:00; Stop 12/16/18 at 09:19; Status DC Haloperidol (Haldol) 10 mg BID PO ; Start 12/21/18 at 09:00; Stop 12/24/18 at 10:46; Status DC Haloperidol (Haldol) 10 mg BID PO ; Start 12/21/18 at 21:00; Stop 12/21/18 at 21:00; Status DC Haloperidol (Haldol) 10 mg STAT STAT IM Last administered on 12/13/18at 01:35; Start 12/13/18 at 01:26; Stop 12/13/18 at 01:28; Status DC Haloperidol (Haldol) 10 mg TID PO Last administered on 12/19/18at 22:00; Start 12/16/18 at 12:00; Stop 12/21/18 at 10:25; Status DC Haloperidol (Haldol) 10 mg TID PO ; Start 12/21/18 at 12:00; Stop 12/21/18 at 12:00; Status DC Haloperidol (Haldol) 10 mg TID PO ; Start 12/24/18 at 16:00 Home Med (Med Rec Complete!) ASDIRECTED XX ; Start 12/09/18 at 14:00; Stop 12/09/18 at 14:00; Status DC Lorazepam (Ativan) 2 mg STAT STAT PO Last administered on 12/09/18at 11:58; Start 12/09/18 at 11:40; Stop 12/09/18 at 11:41; Status DC Magnesium Hydroxide (Milk Of Magnesia) 30 ml DAILYPRN PRN PO CONSTIPATION Last administered on 12/23/18at 14:10; Start 12/09/18 at 13:45 Miscellaneous (Unresolved Clarification Entry) SEE LABEL COMMENTS DAILY XX ; Start 12/10/18 at 09:00; Stop 12/10/18 at 14:48; Status DC Non-Formulary Medication ( See Comment Field Below ) SEE COMMENTS SECTION 1T@10 XX ; Start 12/25/18 at 10:00; Stop 12/26/18 at 09:59; Status UNV Non-Formulary Medication ( See Comment Field Below ) SEE LABEL COMMENTS DAILY XX ; Start 12/23/18 at 09:00 Olanzapine (ZyPREXA ZYDIS) 5 mg Q6HP PRN PO AGITATION; Start 12/09/18 at 13:45 Paliperidone (Invega) 3 mg BID PO ; Start 12/09/18 at 09:00; Status Cancel Pantoprazole Sodium (Protonix) 40 mg DAILY PO Last administered on 12/17/18at 09:32; Start 12/10/18 at 09:00 Quetiapine Fumarate (SEROquel) 50 mg TID PO Last administered on 12/13/18at 08:41; Start 12/09/18 at 16:00; Stop 12/13/18 at 11:57; Status DC Trazodone HCl (Desyrel) 50 mg QHSP PRN PO INSOMNIA Last administered on 12/22/18at 20:25; Start 12/09/18 at 13:45 Allergies Coded Allergies: Penicillins (Verified Allergy, Unknown, 12/09/18) also penicillin cross reactors risperidone (Verified Allergy, Unknown, 12/09/18) KEARA PARTIDA DO December 25, 2018 10:27
[2018-12-25] MEDS ORDERED: PPD DOCUMENTATION ENTRY MISC XX ONE (11:45)
[2018-12-26 06:20] VITALS: BP 134/83
[2018-12-26] MEDS: HALOPERIDOL 10 MG TAB PO SCH ×3 (09:00→21:00)
[2018-12-26] MEDS: PANTOPRAZOLE 40MG TAB (PROTONIX) PO SCH (09:00)
[2018-12-26] MEDS: **PENDING PPD ENTRY XX SCH (09:00)
[2018-12-26] MEDS: BENZTROPINE 1 MG TAB PO SCH ×2 (09:16→20:42)
[2018-12-26] MEDS: MOM 30ML SUSPENSION UDC PO PRN (09:16)
[2018-12-26] MEDS: DOCUSATE SODIUM 100 MG CAP PO SCH ×2 (09:16→20:42)
--- NOTE | 2018-12-26 09:44 | MHIPNPDOC ---
[facility] Progress Note Progress Note DATE OF SERVICE: 12/26/18 HISTORY: Patient is a 63 -year-old , male, with a psych history of paranoid schizophrenia and [place] [facility] [place] [facility] [place] by his sister due to psychotic, paranoid, religiously preoccupied symptoms. Per ED pt stopped taking his medications and following up at [facility] b/c "I didn't want to" and "I'm allergic to all psychotropics." Pt's sister also told ED that pt warned her to not come in his apt b/c she will be in danger and that his landlord called her to inform her that pt has been knocking on tenant's doors, yelling and preaching to them. 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 Pt is a very poor historian so history gathered from ED report of evaluation. VITAL SIGNS: See below. NEW TEST RESULTS: None CURRENT MEDICATIONS: See below. MENTAL STATUS EXAMINATION: no change from yesterday. Patient is a 63-year old male, who is being treated for schizophrenia oral Haldol and patient has received IM shot. Speech: Is brief. Language skills are, characterized by brief statements. Some friendly and some persecuted. Thought processes including: As above. Thought content: methodist (less today) and sexual preoccupied thoughts talking of God and [place] today. Abstract reasoning, and computation: limited. Description of associations:. Loose association. Description of abnormal or psychotic thoughts:, Persecutory thoughts continue, but diminished.methodist (less today) and sexual preoccupied thoughts, paranoia regarding meds and possibly people in milieu Judgment: Fair. Insight: Poor. Orientation: Intact 3. Recent and remote memory:. Intact. Attention span and concentration: Poor. Language: Intact. Fund of knowledge: Complete as best as can be determined. Mood: Euthymic. Affect: Congruent. DIAGNOSES: 1. Schizophrenia. ASSESSMENT: No change from yesterday. 63-year-old male diagnosed with schiz ophrenia with limited improvement on oral Haldol and given IM injection although continues to have methodist (less today) and sexual preoccupied thoughts. Stated today that had haldol dec "a few days ago" when asked then stated he's allergic to it (most likely paranoia) which he isn't. No change from yesterday. Continues to be bizarre and odd mannerisms. Was reading/looking at a book, sitting in door way of his room looking out into the [place], daily. Paranoid. Walking milieu responding to internal stimuli MANAGEMENT PLAN:continue plan. Current Medications Cogentin 1 mg BID Haldol 10 mg tid ZyPREXA ZYDIS 5 mg Q6HP PRN PO AGITATION Trazodone Desyrel 50 mg QHSP PRN PO INSOMNIA Haldol decanoate 300mg IM on 12/20/18 TIME SPENT: 30 minutes. Vital Signs Vital Signs Date Time Temp Pulse Resp B/P (MAP) Pulse Ox O2 Delivery O2 Flow Rate FiO2 12/26/18 06:20 97.3 60 18 134/83 (100) 12/25/18 08:45 Room Air Current Medications Current Medications Acetaminophen (Tylenol Tab) 650 mg Q6HP PRN PO HEADACHE or DISCOMFORT Last administered on 12/19/18at 10:27; Start 12/09/18 at 13:45 Al Hydrox/Mg Hydrox/Simethicone (Mylanta) 30 ml Q4HP PRN PO HEARTBURN/INDIGESTION Last administered on 12/23/18at 20:57; Start 12/09/18 at 13:45 Benztropine Mesylate (Cogentin) 1 mg BID PO Last administered on 12/25/18 20:49; Start 12/12/18 at 09:00 Cetylpyridinium Chloride (Cepacol) 1 emily Q2HP PRN PO SORE THROAT Last administered on 12/22/18at 20:25; Start 12/21/18 at 21:15 Docusate Sodium (Colace) 100 mg BID PO Last administered on 12/25/18 20:49; Start 12/19/18 at 21:00 Haloperidol (Haldol) 5 mg TID PO Last administered on 12/14/18at 08:38; Start 12/12/18 at 09:00; Stop 12/14/18 at 13:21; Status DC Haloperidol (Haldol) 7.5 mg TID PO Last administered on 12/15/18 20:49; Start 12/14/18 at 16:00; Stop 12/16/18 at 09:19; Status DC Haloperidol (Haldol) 10 mg BID PO ; Start 12/21/18 at 09:00; Stop 12/24/18 at 10:46; Status DC Haloperidol (Haldol) 10 mg BID PO ; Start 12/21/18 at 21:00; Stop 12/21/18 at 21:00; Status DC Haloperidol (Haldol) 10 mg STAT STAT IM Last administered on 12/13/18at 01:35; Start 12/13/18 at 01:26; Stop 12/13/18 at 01:28; Status DC Haloperidol (Haldol) 10 mg TID PO Last administered on 12/19/18at 22:00; Start 12/16/18 at 12:00; Stop 12/21/18 at 10:25; Status DC Haloperidol (Haldol) 10 mg TID PO ; Start 12/21/18 at 12:00; Stop 12/21/18 at 12:00; Status DC Haloperidol (Haldol) 10 mg TID PO ; Start 12/24/18 at 16:00 Home Med (Med Rec Complete!) ASDIRECTED XX ; Start 12/09/18 at 14:00; Stop 12/09/18 at 14:00; Status DC Lorazepam (Ativan) 2 mg STAT STAT PO Last administered on 12/09/18at 11:58; Start 12/09/18 at 11:40; Stop 12/09/18 at 11:41; Status DC Magnesium Hydroxide (Milk Of Magnesia) 30 ml DAILYPRN PRN PO CONSTIPATION Last administered on 12/23/18at 14:10; Start 12/09/18 at 13:45 Miscellaneous (Unresolved Clarification Entry) SEE LABEL COMMENTS DAILY XX ; Start 12/10/18 at 09:00; Stop 12/10/18 at 14:48; Status DC Non-Formulary Medication ( See Comment Field Below ) SEE COMMENTS SECTION 1T@10 XX ; Start 12/25/18 at 10:00; Stop 12/26/18 at 09:59; Status UNV Non-Formulary Medication ( See Comment Field Below ) SEE LABEL COMMENTS DAILY XX ; Start 12/23/18 at 09:00 Olanzapine (ZyPREXA ZYDIS) 5 mg Q6HP PRN PO AGITATION; Start 12/09/18 at 13:45 Paliperidone (Invega) 3 mg BID PO ; Start 12/09/18 at 09:00; Status Cancel Pantoprazole Sodium (Protonix) 40 mg DAILY PO Last administered on 12/17/18at 09:32; Start 12/10/18 at 09:00 Quetiapine Fumarate (SEROquel) 50 mg TID PO Last administered on 12/13/18at 08:41; Start 12/09/18 at 16:00; Stop 12/13/18 at 11:57; Status DC Trazodone HCl (Desyrel) 50 mg QHSP PRN PO INSOMNIA Last administered on 12/22/18at 20:25; Start 12/09/18 at 13:45 Allergies Coded Allergies: Penicillins (Verified Allergy, Unknown, 12/09/18) also penicillin cross reactors risperidone (Verified Allergy, Unknown, 12/09/18) KEARA PARTIDA DO December 26, 2018 09:10
[2018-12-26] MEDS ORDERED: MAGNESIUM CITRATE 300 ML BTL PO ONE (11:45)
[2018-12-26 18:00] VITALS: BP 135/86
[2018-12-27 06:59] VITALS: BP 123/79
[2018-12-27] MEDS: HALOPERIDOL 10 MG TAB PO SCH ×3 (09:00→21:29)
[2018-12-27] MEDS: **PENDING PPD ENTRY XX SCH (09:00)
[2018-12-27] MEDS: PANTOPRAZOLE 40MG TAB (PROTONIX) PO SCH (09:00)
[2018-12-27] MEDS: BENZTROPINE 1 MG TAB PO SCH ×2 (09:40→21:29)
[2018-12-27] MEDS: DOCUSATE SODIUM 100 MG CAP PO SCH ×2 (09:40→21:29)
[2018-12-27] MEDS: MAALOX 30 ML SUSP *UDC PO PRN ×2 (09:42→18:52)
[2018-12-27 18:22] VITALS: BP 131/78
[2018-12-28 06:45] VITALS: BP_SYST 114; BP_SYST 123; BP_DIAS 63; BP_DIAS 72
[2018-12-28] MEDS: **PENDING PPD ENTRY XX SCH (09:00)
[2018-12-28] MEDS: HALOPERIDOL 10 MG TAB PO SCH ×3 (09:00→20:25)
[2018-12-28] MEDS: PANTOPRAZOLE 40MG TAB (PROTONIX) PO SCH (09:00)
[2018-12-28] MEDS: BENZTROPINE 1 MG TAB PO SCH ×2 (09:24→20:25)
[2018-12-28] MEDS: DOCUSATE SODIUM 100 MG CAP PO SCH ×2 (09:24→20:25)
[2018-12-28] MEDS: MAALOX 30 ML SUSP *UDC PO PRN (21:54)
[2018-12-29] MEDS: PANTOPRAZOLE 40MG TAB (PROTONIX) PO SCH (09:00)
[2018-12-29] MEDS: HALOPERIDOL 10 MG TAB PO SCH (09:00)
[2018-12-29] MEDS: **PENDING PPD ENTRY XX SCH (09:00)
[2018-12-29] MEDS: DOCUSATE SODIUM 100 MG CAP PO SCH ×2 (09:09→20:32)
[2018-12-29] MEDS: BENZTROPINE 1 MG TAB PO SCH ×3 (09:09→20:32)
--- NOTE | 2018-12-29 11:14 | MHIPNPDOC ---
[facility] Progress Note Progress Note DATE OF SERVICE: 12/29/18 HISTORY: Patient is a 63 -year-old , male, with a psych history of paranoid schizophrenia and multiple admission [facility] [place] [facility] [place] brought to ED by his sister due to psychotic, paranoid, religiously preoccupied symptoms. Per ED pt stopped taking his medications and following up at [facility] b/c "I didn't want to" and "I'm allergic to all psychotropics." Pt's sister also told ED that pt warned her to not come in his apt b/c she will be in danger and that his landlord called her to inform her that pt has been knocking on tenant's doors, yelling and preaching to them. 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 Pt is a very poor historian so history gathered from ED report of evaluation. VITAL SIGNS: See below. NEW TEST RESULTS: None CURRENT MEDICATIONS: See below. MENTAL STATUS EXAMINATION: no change from Saturday Patient is a 63-year old male, who is being treated for schizophrenia oral Haldol and patient has received IM shot. Appears to have akathisia and endorses urge to move Speech: Is brief. Language skills are, characterized by brief statements. Some friendly and some persecuted, bizarre, and paranoid. Thought processes including: As above. Very bizarre and concrete Thought content: moravian and sexual preoccupied thoughts talking of micro chip in mouth connected to the hold spirit Abstract reasoning, and computation: limited. Description of associations:. Loose association. Description of abnormal or psychotic thoughts: Persecutory thoughts continue, moravian and sexual preoccupied thoughts, paranoia regarding meds and possibly people in milieu. Paranoid delusions as told me today "I have a micro chip in my mouth connected to the holy spirit hooked up right here (pointed to lt temporal lobe of head)... I can show you in my room." Wanted to get very close to me to tell me paranoid delusions and had to tell pt not to stand so close and I backed up from pt for my safety as sexually preoccupied Judgment: poor Insight: Poor. Orientation: Intact 3. Recent and remote memory:. Intact. Attention span and concentration: Poor. Language: Intact. Fund of knowledge: below average and limited due to psychosis Mood: Euthymic and slightly agitated due to delusions at times. Affect: Congruent. DIAGNOSES: 1. Schizophrenia. ASSESSMENT: No change from Saturday. 63-year-old male diagnosed with schizophrenia with on oral Haldol and given IM injection although continues to have moravian and sexual preoccupied thoughts, bizarre/paranoid delusions. Told me today "I have a micro chip in my mouth connected to the holy spirit hooked up right here (pointed to lt temporal lobe of head)... I can show you in my room." Wanted to get very close to me to tell me paranoid delusions and had to tell pt not to stand so close and I backed up from pt for my safety as sexually preoccupied. Appears to have akathesia as shuffles feet and clenches/unclenches hands. He endorses the urge to continue to move and would like help with it. No change from yesterday. Continues to be bizarre and odd mannerisms. Was reading/looking at a book, sitting in door way of his room looking out into the [place], daily. Paranoid. Walking milieu responding to internal stimuli MANAGEMENT PLAN: change cogentin to 1mg tid and start inderal 10mg tid for akathisia. Change oral haldol to prolixin 10mg tid to improve psychosis as oral haldol not very beneficial at max dose Current Medications Cogentin 1 mg tid Prolixin 10mg tid Trazodone Desyrel 50 mg QHSP PRN PO INSOMNIA Haldol decanoate 300mg IM on 12/20/18 inderal 10mg tid TIME SPENT: 30 minutes. Vital Signs Vital Signs Date Time Temp Pulse Resp B/P (MAP) Pulse Ox O2 Delivery O2 Flow Rate FiO2 12/29/18 07:00 16 12/28/18 18:10 98.7 12/28/18 06:45 58 123/63 (83) 12/25/18 08:45 Room Air Current Medications Current Medications Acetaminophen (Tylenol Tab) 650 mg Q6HP PRN PO HEADACHE or DISCOMFORT Last administered on 12/19/18at 10:27; Start 12/09/18 at 13:45 Al Hydrox/Mg Hydrox/Simethicone (Mylanta) 30 ml Q4HP PRN PO HEARTBURN/ INDIGESTION Last administered on 12/28/18 21:54; Start 12/09/18 at 13:45 Benztropine Mesylate (Cogentin) 1 mg BID PO Last administered on 12/29/18 09:09; Start 12/12/18 at 09:00 Cetylpyridinium Chloride (Cepacol) 1 emily Q2HP PRN PO SORE THROAT Last admini stered on 12/22/18at 20:25; Start 12/21/18 at 21:15 Docusate Sodium (Colace) 100 mg BID PO Last administered on 12/29/18 09:09; Start 12/19/18 at 21:00 Haloperidol (Haldol) 5 mg TID PO Last administered on 12/14/18at 08:38; Start 12/12/18 at 09:00; Stop 12/14/18 at 13:21; Status DC Haloperidol (Haldol) 7.5 mg TID PO Last administered on 12/15/18at 20:49; Start 12/14/18 at 16:00; Stop 12/16/18 at 09:19; Status DC Haloperidol (Haldol) 10 mg BID PO ; Start 12/21/18 at 09:00; Stop 12/24/18 at 10:46; Status DC Haloperidol (Haldol) 10 mg BID PO ; Start 12/21/18 at 21:00; Stop 12/21/18 at 21:00; Status DC Haloperidol (Haldol) 10 mg STAT STAT IM Last administered on 12/13/18at 01:35; Start 12/13/18 at 01:26; Stop 12/13/18 at 01:28; Status DC Haloperidol (Haldol) 10 mg TID PO Last administered on 12/19/18 22:00; Start 12/16/18 at 12:00; Stop 12/21/18 at 10:25; Status DC Haloperidol (Haldol) 10 mg TID PO ; Start 12/21/18 at 12:00; Stop 12/21/18 at 12:00; Status DC Haloperidol (Haldol) 10 mg TID PO Last administered on 12/27/18at 21:29; Start 12/24/18 at 16:00 Home Med (Med Rec Complete!) ASDIRECTED XX ; Start 12/09/18 at 14:00; Stop 12/09/18 at 14:00; Status DC Lorazepam (Ativan) 2 mg STAT STAT PO Last administered on 12/09/18at 11:58; Start 12/09/18 at 11:40; Stop 12/09/18 at 11:41; Status DC Magnesium Hydroxide (Milk Of Magnesia) 30 ml DAILYPRN PRN PO CONSTIPATION Last administered on 12/26/18at 09:16; Start 12/09/18 at 13:45 Miscellaneous (Unresolved Clarification Entry) SEE LABEL COMMENTS DAILY XX ; Start 12/10/18 at 09:00; Stop 12/10/18 at 14:48; Status DC Non-Formulary Medication ( See Comment Field Below ) SEE COMMENTS SECTION 1T@10 XX ; Start 12/25/18 at 10:00; Stop 12/26/18 at 09:59; Status UNV Non-Formulary Medication ( See Comment Field Below ) SEE LABEL COMMENTS DAILY XX ; Start 12/23/18 at 09:00 Olanzapine (ZyPREXA ZYDIS) 5 mg Q6HP PRN PO AGITATION; Start 12/09/18 at 13:45 Paliperidone (Invega) 3 mg BID PO ; Start 12/09/18 at 09:00; Status Cancel Pantoprazole Sodium (Protonix) 40 mg DAILY PO Last administered on 12/17/18at 09:32; Start 12/10/18 at 09:00 Quetiapine Fumarate (SEROquel) 50 mg TID PO Last administered on 12/13/18at 08:41; Start 12/09/18 at 16:00; Stop 12/13/18 at 11:57; Status DC Trazodone HCl (Desyrel) 50 mg QHSP PRN PO INSOMNIA Last administered on 12/22/18at 20:25; Start 12/09/18 at 13:45 Allergies Coded Allergies: Penicillins (Verified Allergy, Unknown, 12/09/18) also penicillin cross reactors risperidone (Verified Allergy, Unknown, 12/09/18) KEARA PARTIDA DO Dec 29, 2018 11:14
[2018-12-29] MEDS: PROPRANOLOL 10 MG TAB PO SCH ×3 (11:25→20:33)
[2018-12-29 18:41] VITALS: BP 166/84
[2018-12-30 06:39] VITALS: BP 136/86
[2018-12-30] MEDS: **PENDING PPD ENTRY XX SCH (09:00)
[2018-12-30] MEDS: PANTOPRAZOLE 40MG TAB (PROTONIX) PO SCH (09:00)
[2018-12-30] MEDS: PROPRANOLOL 10 MG TAB PO SCH ×3 (09:00→21:00)
--- NOTE | 2018-12-30 09:03 | MHIPNPDOC ---
[facility] Progress Note Progress Note DATE OF SERVICE: 12/30/18 HISTORY: Patient is a 63 -year-old , male, with a psych history of paranoid schizophrenia and multiple admission [facility] [place] who was brought to ED by his sister due to psychotic, paranoid, religiously preoccupied symptoms. Per ED pt stopped taking his medications and following up at [facility] b/c "I didn't want to" and "I'm allergic to all psychotropics." Pt's sister also told ED that pt warned her to not come in his apt b/c she will be in danger and that his landlord called her to inform her that pt has been knocking on tenant's doors, yelling and preaching to them. 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 Pt is a very poor historian so history gathered from ED report of evaluation. VITAL SIGNS: See below. NEW TEST RESULTS: None CURRENT MEDICATIONS: See below. MENTAL STATUS EXAMINATION: no change from yesterday Patient is a 63-year old male, who is being treated for schizophrenia oral Haldol and patient has received IM shot. Appears to have akathisia and endorses urge to move Speech: Is brief. Language skills are, characterized by brief statements. Some friendly and some persecuted, bizarre, and paranoid. Thought processes including: As above. Very bizarre and concrete Thought content: spiritism and sexual preoccupied thoughts talking of micro chip in mouth connected to the hold spirit Abstract reasoning, and computation: limited. Description of associations:. Loose association. Description of abnormal or psychotic thoughts: Persecutory thoughts continue, spiritism and sexual preoccupied thoughts, paranoia regarding meds and possibly people in milieu. Paranoid delusions as told me today "I have a micro chip in my mouth connected to the holy spirit hooked up right here (pointed to lt temporal lobe of head)... I can show you in my room." Wanted to get very close to me to tell me paranoid delusions and had to tell pt not to stand so close and I backed up from pt for my safety as sexually preoccupied Judgment: poor Insight: Poor. Orientation: Intact 3. Recent and remote memory:. Intact. Attention span and concentration: Poor. Language: Intact. Fund of knowledge: below average and limited due to psychosis Mood: Euthymic and slightly agitated due to delusions at times. Affect: Congruent. DIAGNOSES: 1. Schizophrenia. ASSESSMENT: 63-year-old male diagnosed with schizophrenia with on oral Prolixin started yesterday and given haldol IM injection although continues to have spiritism and sexual preoccupied thoughts, bizarre/paranoid delusions although appear mildly less today. Per yesterday "Told me today "I have a micro chip in my mouth connected to the holy spirit hooked up right here (pointed to lt temporal lobe of head)... I can show you in my room." Wanted to get very close to me to tell me paranoid delusions and had to tell pt not to stand so close and I backed up from pt for my safety as sexually preoccupied." Appears to have akathesia as shuffles feet and clenches/unclenches hands and started on inderal to improve yesterday with cogentin changed to tid. Laying in bed currently stating he's sleeping so hard to assess if continues today. Continues to be bizarre and odd mannerisms. Is sitting in door way of his room looking out into the [place], daily. Paranoid. Walking milieu responding to internal stimuli MANAGEMENT PLAN: continue plan Current Medications Cogentin 1 mg tid Prolixin 10mg tid Trazodone Desyrel 50 mg QHSP PRN PO INSOMNIA Haldol decanoate 300mg IM on 12/20/18 inderal 10mg tid TIME SPENT: 30 minutes. Vital Signs Vital Signs Date Time Temp Pulse Resp B/P (MAP) Pulse Ox O2 Delivery O2 Flow Rate FiO2 12/30/18 06:39 99.3 58 16 136/86 (103) 12/25/18 08:45 Room Air Current Medications Current Medications Acetaminophen (Tylenol Tab) 650 mg Q6HP PRN PO HEADACHE or DISCOMFORT Last administered on 12/19/18at 10:27; Start 12/09/18 at 13:45 Al Hydrox/Mg Hydrox/Simethicone (Mylanta) 30 ml Q4HP PRN PO HEARTBURN/INDIGESTION Last administered on 12/28/18at 21:54; Start 12/09/18 at 13:45 Benztropine Mesylate (Cogentin) 1 mg BID PO Last administered on 12/29/18 09:09; Start 12/12/18 at 09:00; Stop 12/29/18 at 11:14; Status DC Benztropine Mesylate (Cogentin) 1 mg TID PO Last administered on 12/29/18 20:32; Start 12/29/18 at 16:00 Cetylpyridinium Chloride (Cepacol) 1 emily Q2HP PRN PO SORE THROAT Last administered on 12/22/18at 20:25; Start 12/21/18 at 21:15 Docusate Sodium (Colace) 100 mg BID PO Last administered on 12/29/18 20:32; Start 12/19/18 at 21:00 Fluphenazine HCl (Prolixin) 10 mg TID PO ; Start 12/29/18 at 09:00 Haloperidol (Haldol) 5 mg TID PO Last administered on 12/14/18at 08:38; Start 12/12/18 at 09:00; Stop 12/14/18 at 13:21; Status DC Haloperidol (Haldol) 7.5 mg TID PO Last administered on 12/15/18at 20:49; Start 12/14/18 at 16:00; Stop 12/16/18 at 09:19; Status DC Haloperidol (Haldol) 10 mg BID PO ; Start 12/21/18 at 09:00; Stop 12/24/18 at 10:46; Status DC Haloperidol (Haldol) 10 mg BID PO ; Start 12/21/18 at 21:00; Stop 12/21/18 at 21:00; Status DC Haloperidol (Haldol) 10 mg STAT STAT IM Last administered on 12/13/18at 01:35; Start 12/13/18 at 01:26; Stop 12/13/18 at 01:28; Status DC Haloperidol (Haldol) 10 mg TID PO Last administered on 12/19/18at 22:00; Start 12/16/18 at 12:00; Stop 12/21/18 at 10:25; Status DC Haloperidol (Haldol) 10 mg TID PO ; Start 12/21/18 at 12:00; Stop 12/21/18 at 12:00; Status DC Haloperidol (Haldol) 10 mg TID PO Last administered on 12/27/18at 21:29; Start 12/24/18 at 16:00; Stop 12/29/18 at 11:14; Status DC Home Med (Med Rec Complete!) ASDIRECTED XX ; Start 12/09/18 at 14:00; Stop 12/09/18 at 14:00; Status DC Lorazepam (Ativan) 2 mg STAT STAT PO Last administered on 12/09/18at 11:58; Start 12/09/18 at 11:40; Stop 12/09/18 at 11:41; Status DC Magnesium Hydroxide (Milk Of Magnesia) 30 ml DAILYPRN PRN PO CONSTIPATION Last administered on 12/26/18at 09:16; Start 12/09/18 at 13:45 Miscellaneous (Unresolved Clarification Entry) SEE LABEL COMMENTS DAILY XX ; Start 12/10/18 at 09:00; Stop 12/10/18 at 14:48; Status DC Non-Formulary Medication ( See Comment Field Below ) SEE COMMENTS SECTION 1T@10 XX ; Start 12/25/18 at 10:00; Stop 12/26/18 at 09:59; Status UNV Non-Formulary Medication ( See Comment Field Below ) SEE LABEL COMMENTS DAILY XX ; Start 12/23/18 at 09:00 Olanzapine (ZyPREXA ZYDIS) 5 mg Q6HP PRN PO AGITATION; Start 12/09/18 at 13:45 Paliperidone (Invega) 3 mg BID PO ; Start 12/09/18 at 09:00; Status Cancel Pantoprazole Sodium (Protonix) 40 mg DAILY PO Last administered on 12/17/18at 09:32; Start 12/10/18 at 09:00 Propranolol HCl (Inderal) 10 mg TID PO ; Start 12/29/18 at 09:00 Quetiapine Fumarate (SEROquel) 50 mg TID PO Last administered on 12/13/18at 08:41; Start 12/09/18 at 16:00; Stop 12/13/18 at 11:57; Status DC Trazodone HCl (Desyrel) 50 mg QHSP PRN PO INSOMNIA Last administered on 12/22/18at 20:25; Start 12/09/18 at 13:45 Allergies Coded Allergies: Penicillins (Verified Allergy, Unknown, 12/09/18) also penicillin cross reactors risperidone (Verified Allergy, Unknown, 12/09/18) KEARA PARTIDA DO Dec 30, 2018 09:03
[2018-12-30] MEDS: DOCUSATE SODIUM 100 MG CAP PO SCH ×2 (09:24→21:50)
[2018-12-30] MEDS: BENZTROPINE 1 MG TAB PO SCH ×3 (09:24→21:50)
[2018-12-30] MEDS: MAALOX 30 ML SUSP *UDC PO PRN (13:51)
[2018-12-30 18:43] VITALS: BP 129/71
[2018-12-31 06:47] VITALS: BP 148/78
[2018-12-31] MEDS: DOCUSATE SODIUM 100 MG CAP PO SCH ×2 (08:13→20:42)
[2018-12-31] MEDS: PROPRANOLOL 10 MG TAB PO SCH ×3 (08:13→20:43)
[2018-12-31] MEDS: BENZTROPINE 1 MG TAB PO SCH ×3 (08:14→20:43)
[2018-12-31] MEDS: PANTOPRAZOLE 40MG TAB (PROTONIX) PO SCH (08:14)
[2018-12-31] MEDS: **PENDING PPD ENTRY XX SCH (09:00)
--- NOTE | 2018-12-31 10:07 | MHIPNPDOC ---
[facility] Progress Note Progress Note DATE OF SERVICE: 12/31/18 HISTORY: Patient is a 63 -year-old , male, with a psych history of paranoid schizophrenia and multiple admission [facility] [place] [facility] [place] brought to ED by his sister due to psychotic, paranoid, religiously preoccupied symptoms. Per ED pt stopped taking his medications and following up at [facility] b/c "I didn't want to" and "I'm allergic to all psychotropics." Pt's sister also told ED that pt warned her to not come in his apt b/c she will be in danger and that his landlord called her to inform her that pt has been knocking on tenant's doors, yelling and preaching to them. 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 Pt is a very poor historian so history gathered from ED report of evaluation. VITAL SIGNS: See below. NEW TEST RESULTS: None CURRENT MEDICATIONS: See below. MENTAL STATUS EXAMINATION: no change from yesterday Patient is a 63-year old male, who is being treated for schizophrenia oral Haldol and patient has received IM shot. Appears to have akathisia and endorses urge to move Speech: Is brief. Language skills are, characterized by brief statements. Some friendly and some persecuted, bizarre, and paranoid. Thought processes including: As above. Very bizarre and concrete Thought content: mu-ism and sexual preoccupied thoughts talking of micro chip in mouth connected to the holy spirit. Paranoid that he's being over medicated and that the water is poisoned today. Yelled at me about it spontaneously when seen and walked away Abstract reasoning, and computation: limited. Description of associations:. Loose association. Description of abnormal or psychotic thoughts: Persecutory thoughts continue, mu-ism and sexual preoccupied thoughts, paranoia regarding meds and possibly people in milieu. Paranoid delusions as told me today "I have a micro chip in my mouth connected to the holy spirit hooked up right here (pointed to lt temporal lobe of head)... I can show you in my room." Wanted to get very close to me to tell me paranoid delusions and had to tell pt not to stand so close and I backed up from pt for my safety as sexually preoccupied. Paranoid that he's being over medicated and that the water is poisoned today. Yelled at me about it spontaneously when seen and walked away Judgment: poor Insight: Poor. Orientation: Intact 3. Recent and remote memory:. Intact. Attention span and concentration: Poor. Language: Intact. Fund of knowledge: below average and limited due to psychosis Mood: Euthymic and slightly agitated due to paranoid delusions at times. Affect: Congruent. DIAGNOSES: 1. Schizophrenia. ASSESSMENT: 63-year-old male diagnosed with schizophrenia with on oral Prolixin started yesterday and given haldol IM injection although continues to have mu-ism and sexual preoccupied thoughts, bizarre/paranoid delusions although appear mildly less today. Per yesterday "Told me today "I have a micro chip in my mouth connected to the holy spirit hooked up right here (pointed to lt temporal lobe of head)... I can show you in my room." Wanted to get very close to me to tell me paranoid delusions and had to tell pt not to stand so close and I backed up from pt for my safety as sexually preoccupied." Today, paranoid that he's being over medicated and that the water is poisoned. Yelled at me about it spontaneously when seen and walked away. Appears to have akathesia as shuffles feet and clenches/unclenches hands and started on inderal to improved with cogentin changed to tid. Currently walking milieu responding to internal stimuli. Continues to be bizarre and odd mannerisms. Is sitting in door way of his room looking out into the [place], daily. Paranoid. MANAGEMENT PLAN: continue plan Current Medications Cogentin 1 mg tid Prolixin 10mg tid Trazodone Desyrel 50 mg QHSP PRN PO INSOMNIA Haldol decanoate 300mg IM on 12/20/18 inderal 10mg tid TIME SPENT: 30 minutes. Vital Signs Vital Signs Date Time Temp Pulse Resp B/P (MAP) Pulse Ox O2 Delivery O2 Flow Rate FiO2 12/31/18 08:13 60 148/78 12/31/18 06:47 98.4 14 12/25/18 08:45 Room Air Current Medications Current Medications Acetaminophen (Tylenol Tab) 650 mg Q6HP PRN PO HEADACHE or DISCOMFORT Last administered on 12/19/18 10:27; Start 12/09/18 at 13:45 Al Hydrox/Mg Hydrox/Simethicone (Mylanta) 30 ml Q4HP PRN PO HEARTBURN /INDIGESTION Last administered on 12/30/18 13:51; Start 12/09/18 at 13:45 Benztropine Mesylate (Cogentin) 1 mg BID PO Last administered on 12/29/18 09:09; Start 12/12/18 at 09:00; Stop 12/29/18 at 11:14; Status DC Benztropine Mesylate (Cogentin) 1 mg TID PO Last administered on 12/31/18 08:14; Start 12/29/18 at 16:00 Cetylpyridinium Chloride (Cepacol) 1 emily Q2HP PRN PO SORE THROAT Last administered on 12/22/18 20:25; Start 12/21/18 at 21:15 Docusate Sodium (Colace) 100 mg BID PO Last administered on 12/31/18 08:13; Start 12/19/18 at 21:00 Fluphenazine HCl (Prolixin) 10 mg TID PO Last administered on 12/31/18 08:14; Start 12/29/18 at 09:00 Haloperidol (Haldol) 5 mg TID PO Last administered on 12/14/18 08:38; Start 12/12/18 at 09:00; Stop 12/14/18 at 13:21; Status DC Haloperidol (Haldol) 7.5 mg TID PO Last administered on 12/15/18at 20:49; Start 12/14/18 at 16:00; Stop 12/16/18 at 09:19; Status DC Haloperidol (Haldol) 10 mg BID PO ; Start 12/21/18 at 09:00; Stop 12/24/18 at 10:46; Status DC Haloperidol (Haldol) 10 mg BID PO ; Start 12/21/18 at 21:00; Stop 12/21/18 at 21:00; Status DC Haloperidol (Haldol) 10 mg STAT STAT IM Last administered on 12/13/18at 01:35; Start 12/13/18 at 01:26; Stop 12/13/18 at 01:28; Status DC Haloperidol (Haldol) 10 mg TID PO Last administered on 12/19/18at 22:00; Start 12/16/18 at 12:00; Stop 12/21/18 at 10:25; Status DC Haloperidol (Haldol) 10 mg TID PO ; Start 12/21/18 at 12:00; Stop 12/21/18 at 12:00; Status DC Haloperidol (Haldol) 10 mg TID PO Last administered on 12/27/18at 21:29; Start 12/24/18 at 16:00; Stop 12/29/18 at 11:14; Status DC Home Med (Med Rec Complete!) ASDIRECTED XX ; Start 12/09/18 at 14:00; Stop 12/09/18 at 14:00; Status DC Lorazepam (Ativan) 2 mg STAT STAT PO Last administered on 12/09/18at 11:58; Start 12/09/18 at 11:40; Stop 12/09/18 at 11:41; Status DC Magnesium Hydroxide (Milk Of Magnesia) 30 ml DAILYPRN PRN PO CONSTIPATION Last administered on 12/26/18at 09:16; Start 12/09/18 at 13:45 Miscellaneous (Unresolved Clarification Entry) SEE LABEL COMMENTS DAILY XX ; Start 12/10/18 at 09:00; Stop 12/10/18 at 14:48; Status DC Non-Formulary Medication ( See Comment Field Below ) SEE COMMENTS SECTION 1T@10 XX ; Start 12/25/18 at 10:00; Stop 12/26/18 at 09:59; Status UNV Non-Formulary Medication ( See Comment Field Below ) SEE LABEL COMMENTS DAILY XX ; Start 12/23/18 at 09:00 Olanzapine (ZyPREXA ZYDIS) 5 mg Q6HP PRN PO AGITATION; Start 12/09/18 at 13:45 Paliperidone (Invega) 3 mg BID PO ; Start 12/09/18 at 09:00; Status Cancel Pantoprazole Sodium (Protonix) 40 mg DAILY PO Last administered on 12/31/18at 08:14; Start 12/10/18 at 09:00 Propranolol HCl (Inderal) 10 mg TID PO Last administered on 12/31/18 08:13; Start 12/29/18 at 09:00 Quetiapine Fumarate (SEROquel) 50 mg TID PO Last administered on 12/13/18at 08:41; Start 12/09/18 at 16:00; Stop 12/13/18 at 11:57; Status DC Trazodone HCl (Desyrel) 50 mg QHSP PRN PO INSOMNIA Last administered on 12/22/18at 20:25; Start 12/09/18 at 13:45 Allergies Coded Allergies: Penicillins (Verified Allergy, Unknown, 12/09/18) also penicillin cross reactors risperidone (Verified Allergy, Unknown, 12/09/18) KEARA PARTIDA DO Dec 31, 2018 09:06
[2018-12-31 18:00] VITALS: BP 133/65
[2019-01-01 06:50] VITALS: BP 126/73
[2019-01-01] MEDS: **PENDING PPD ENTRY XX SCH (09:00)
[2019-01-01] MEDS: PANTOPRAZOLE 40MG TAB (PROTONIX) PO SCH (09:00)
[2019-01-01] MEDS: BENZTROPINE 1 MG TAB PO SCH ×3 (09:42→20:59)
[2019-01-01] MEDS: DOCUSATE SODIUM 100 MG CAP PO SCH ×2 (09:42→20:59)
[2019-01-01] MEDS: PROPRANOLOL 10 MG TAB PO SCH ×3 (09:43→20:59)
--- NOTE | 2019-01-01 09:58 | MHIPNPDOC ---
[facility] Progress Note Progress Note DATE OF SERVICE: 01/01/19 HISTORY: Patient is a 63 -year-old , male, with a psych history of paranoid schizophrenia and multiple admission [facility] and [facility] [place] who was brought to ED by his sister due to psychotic, paranoid, religiously preoccupied symptoms. Per ED pt stopped taking his medications and following up at [facility] b/c "I didn't want to" and "I'm allergic to all psychotropics." Pt's sister also told ED that pt warned her to not come in his apt b/c she will be in danger and that his landlord called her to inform her that pt has been knocking on tenant's doors, yelling and preaching to them. 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 Pt is a very poor historian so history gathered from ED report of evaluation. VITAL SIGNS: See below. NEW TEST RESULTS: None CURRENT MEDICATIONS: See below. MENTAL STATUS EXAMINATION: no change from yesterday Patient is a 63-year old male, who is being treated for schizophrenia oral Haldol and patient has received IM shot. Appears to have akathisia and endorses urge to move Speech: Is brief. Language skills are, characterized by brief statements. Some friendly and some persecuted, bizarre, and paranoid. Thought processes including: As above. Very bizarre and concrete Thought content: mandaen and sexual preoccupied thoughts talking of micro chip in mouth connected to the holy spirit. Paranoid that he's being over medicated and that the water is poisoned today. Yelled at me about it spontaneously when seen and walked away Abstract reasoning, and computation: limited. Description of associations:. Loose association. Description of abnormal or psychotic thoughts: Persecutory thoughts continue, mandaen and sexual preoccupied thoughts, paranoia regarding meds and possibly people in milieu. Paranoid delusions as told me today "I have a micro chip in my mouth connected to the holy spirit hooked up right here (pointed to lt temporal lobe of head)... I can show you in my room." Wanted to get very close to me to tell me paranoid delusions and had to tell pt not to stand so close and I backed up from pt for my safety as sexually preoccupied. Paranoid that he's being over medicated and that the water is poisoned today. Somatic delusions of bowel impaction a few times a week that he states he spontaneously clears on his own. Judgment: poor Insight: Poor. Orientation: Intact 3. Recent and remote memory:. Intact. Attention span and concentration: Poor. Language: Intact. Fund of knowledge: below average and limited due to psychosis Mood: Euthymic and slightly agitated due to paranoid delusions at times. Affect: Congruent. DIAGNOSES: 1. Schizophrenia. ASSESSMENT: No change since yesterday. 63-year-old male diagnosed with schizophrenia with on oral Prolixin started yesterday and given haldol IM injection although continues to have mandaen and sexual preoccupied thoughts, bizarre/paranoid delusions although appear mildly less today. Per 12/30/18 "Told me today "I have a micro chip in my mouth connected to the holy spirit hooked up right here (pointed to lt temporal lobe of head)... I can show you in my room." Wanted to get very close to me to tell me paranoid delusions and had to tell pt not to stand so close and I backed up from pt for my safety as sexually preoccupied." Yesterday, "paranoid that he's being over medicated and that the water is poisoned. Yelled at me about it spontaneously when seen and walked away." Today stated he had a "bowel impaction" that he got rid of on his own when seen (appears to be somatic delusion as talks of bowels occasionally and bowel impaction that he spontaneously clears on his own). Appears to have akathisia as shuffles feet and clenches/unclenches hands and started on inderal to improved with cogentin changed to tid. Currently walking milieu responding to internal stimuli. Continues to be bizarre and odd mannerisms. Is sitting in door way of his room looking out into the [place], daily. Paranoid. MANAGEMENT PLAN: administrative meeting for skilled nursing treatment at [facility] today Current Medications Cogentin 1 mg tid Prolixin 10mg tid Trazodone Desyrel 50 mg QHSP PRN PO INSOMNIA Haldol decanoate 300mg IM on 12/20/18 inderal 10mg tid TIME SPENT: 30 minutes. Vital Signs Vital Signs Date Time Temp Pulse Resp B/P (MAP) Pulse Ox O2 Delivery O2 Flow Rate FiO2 01/01/19 09:43 55 126/73 01/01/19 06:50 97.3 16 Current Medications Current Medications Acetaminophen (Tylenol Tab) 650 mg Q6HP PRN PO HEADACHE or DISCOMFORT Last administered on 12/19/18 10:27; Start 12/09/18 at 13:45 Al Hydrox/Mg Hydrox/Simethicone (Mylanta) 30 ml Q4HP PRN PO HEARTBURN/INDIGESTION Last administered on 12/30/18 13:51; Start 12/09/18 at 13:45 Benztropine Mesylate (Cogentin) 1 mg BID PO Last administered on 12/29/18 09:09; Start 12/12/18 at 09:00; Stop 12/29/18 at 11:14; Status DC Benztropine Mesylate (Cogentin) 1 mg TID PO Last administered on 01/01/19 09:42; Start 12/29/18 at 16:00 Cetylpyridinium Chloride (Cepacol) 1 emily Q2HP PRN PO SORE THROAT Last administered on 12/22/18 20:25; Start 12/21/18 at 21:15 Docusate Sodium (Colace) 100 mg BID PO Last administered on 01/01/19 09:42; Start 12/19/18 at 21:00 Fluphenazine HCl (Prolixin) 10 mg TID PO Last administered on 12/31/18 08:14; Start 12/29/18 at 09:00 Haloperidol (Haldol) 5 mg TID PO Last administered on 12/14/18 08:38; Start 12/12/18 at 09:00; Stop 12/14/18 at 13:21; Status DC Haloperidol (Haldol) 7.5 mg TID PO Last administered on 12/15/18 20:49; Start 12/14/18 at 16:00; Stop 12/16/18 at 09:19; Status DC Haloperidol (Haldol) 10 mg BID PO ; Start 12/21/18 at 09:00; Stop 12/24/18 at 10:46; Status DC Haloperidol (Haldol) 10 mg BID PO ; Start 12/21/18 at 21:00; Stop 12/21/18 at 21:00; Status DC Haloperidol (Haldol) 10 mg STAT STAT IM Last administered on 12/13/18at 01:35; Start 12/13/18 at 01:26; Stop 12/13/18 at 01:28; Status DC Haloperidol (Haldol) 10 mg TID PO Last administered on 12/19/18at 22:00; Start 12/16/18 at 12:00; Stop 12/21/18 at 10:25; Status DC Haloperidol (Haldol) 10 mg TID PO ; Start 12/21/18 at 12:00; Stop 12/21/18 at 12:00; Status DC Haloperidol (Haldol) 10 mg TID PO Last administered on 12/27/18at 21:29; Start 12/24/18 at 16:00; Stop 12/29/18 at 11:14; Status DC Home Med (Med Rec Complete!) ASDIRECTED XX ; Start 12/09/18 at 14:00; Stop 12/09/18 at 14:00; Status DC Lorazepam (Ativan) 2 mg STAT STAT PO Last administered on 12/09/18at 11:58; Start 12/09/18 at 11:40; Stop 12/09/18 at 11:41; Status DC Magnesium Hydroxide (Milk Of Magnesia) 30 ml DAILYPRN PRN PO CONSTIPATION Last administered on 12/26/18at 09:16; Start 12/09/18 at 13:45 Miscellaneous (Unresolved Clarification Entry) SEE LABEL COMMENTS DAILY XX ; Start 12/10/18 at 09:00; Stop 12/10/18 at 14:48; Status DC Non-Formulary Medication ( See Comment Field Below ) SEE COMMENTS SECTION 1T@10 XX ; Start 12/25/18 at 10:00; Stop 12/26/18 at 09:59; Status UNV Non-Formulary Medication ( See Comment Field Below ) SEE LABEL COMMENTS DAILY XX ; Start 12/23/18 at 09:00 Olanzapine (ZyPREXA ZYDIS) 5 mg Q6HP PRN PO AGITATION; Start 12/09/18 at 13:45 Paliperidone (Invega) 3 mg BID PO ; Start 12/09/18 at 09:00; Status Cancel Pantoprazole Sodium (Protonix) 40 mg DAILY PO Last administered on 12/31/18 08:14; Start 12/10/18 at 09:00 Propranolol HCl (Inderal) 10 mg TID PO Last administered on 01/01/19 09:43; Start 12/29/18 at 09:00 Quetiapine Fumarate (SEROquel) 50 mg TID PO Last administered on 12/13/18 08:41; Start 12/09/18 at 16:00; Stop 12/13/18 at 11:57; Status DC Trazodone HCl (Desyrel) 50 mg QHSP PRN PO INSOMNIA Last administered on 12/22/18 20:25; Start 12/09/18 at 13:45 Allergies Coded Allergies: Penicillins (Verified Allergy, Unknown, 12/09/18) also penicillin cross reactors risperidone (Verified Allergy, Unknown, 12/09/18) KEARA PARTIDA DO Jan 01, 2019 09:58
[2019-01-01 18:00] VITALS: BP 133/72
[2019-01-02 06:39] VITALS: BP 127/73
[2019-01-02] MEDS: DOCUSATE SODIUM 100 MG CAP PO SCH ×2 (08:07→20:22)
[2019-01-02] MEDS: BENZTROPINE 1 MG TAB PO SCH ×3 (08:08→20:22)
[2019-01-02] MEDS: **PENDING PPD ENTRY XX SCH (08:08)
[2019-01-02] MEDS: PANTOPRAZOLE 40MG TAB (PROTONIX) PO SCH (08:08)
[2019-01-02] MEDS: PROPRANOLOL 10 MG TAB PO SCH ×3 (08:08→20:23)
--- NOTE | 2019-01-02 08:46 | MHIPNPDOC ---
[facility] Progress Note Progress Note DATE OF SERVICE: 01/02/19 HISTORY: Patient is a 63 -year-old , male, with a psych history of paranoid schizophrenia and multiple admission [facility] and [facility] who was brought to ED by his sister due to psychotic, paranoid, religiously preoccupied symptoms. Per ED pt stopped taking his medications and following up at [facility] b/c "I didn't want to" and "I'm allergic to all psychotropics." Pt's sister also told ED that pt warned her to not come in his apt b/c she will be in danger and that his landlord called her to inform her that pt has been knocking on tenant's doors, yelling and preaching to them. 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 Pt is a very poor historian so history gathered from ED report of evaluation. VITAL SIGNS: See below. NEW TEST RESULTS: None CURRENT MEDICATIONS: See below. MENTAL STATUS EXAMINATION: no change from yesterday Patient is a 63-year old male, who is being treated for schizophrenia oral Haldol and patient has received IM shot. Appears to have akathisia and endorses urge to move Speech: Is brief. Language skills are, characterized by brief statements. Some friendly and some persecuted, bizarre, and paranoid. Thought processes including: As above. Very bizarre and concrete Thought content: pentecostalism and sexual preoccupied thoughts talking of micro chip in mouth connected to the holy spirit. Paranoid that he's being over medicated and that the water is poisoned today. Yelled at me about it spontaneously when seen and walked away Abstract reasoning, and computation: limited. Description of associations:. Loose association. Description of abnormal or psychotic thoughts: Persecutory thoughts continue, pentecostalism and sexual preoccupied thoughts, paranoia regarding meds and possibly people in milieu. Paranoid delusions as told me today "I have a micro chip in my mouth connected to the holy spirit hooked up right here (pointed to lt temporal lobe of head)... I can show you in my room." Wanted to get very close to me to tell me paranoid delusions and had to tell pt not to stand so close and I backed up from pt for my safety as sexually preoccupied. Paranoid that he's being over medicated and that the water is poisoned today. Somatic delusions of bowel impaction a few times a week that he states he spontaneously clears on his own. Judgment: poor Insight: Poor. Orientation: Intact 3. Recent and remote memory:. Intact. Attention span and concentration: Poor. Language: Intact. Fund of knowledge: below average and limited due to psychosis Mood: labile and reactive, at times agitated due to paranoid delusions at times. Affect: Congruent. DIAGNOSES: 1. Schizophrenia. ASSESSMENT: No change since yesterday. 63-year-old male diagnosed with schizophrenia with on oral Prolixin started yesterday and given haldol IM injection although continues to have pentecostalism and sexual preoccupied thoughts, bizarre/paranoid delusions although appear mildly less today. Per 12/30/18 "Told me today "I have a micro chip in my mouth connected to the holy spirit hooked up right here (pointed to lt temporal lobe of head)... I can show you in my room." Wanted to get very close to me to tell me paranoid delusions and had to tell pt not to stand so close and I backed up from pt for my safety as sexually preoccupied." Yesterday, "paranoid that he's being over medicated and that the water is poisoned. Yelled at me about it spontaneously when seen and walked away." Today stated he had a "bowel impaction" that he got rid of on his own when seen (appears to be somatic delusion as talks of bowels occasionally and bowel impaction that he spontaneously clears on his own). Appears to have akathisia as shuffles feet and clenches/unclenches hands and started on inderal to improved with cogentin changed to tid. Currently walking milieu responding to internal stimuli. Continues to be bizarre and odd mannerisms. Is sitting in door way of his room looking out into the [place], daily. Paranoid. Seen yesterday for administrative meeting. Pt psychotic, delusional, at times yelling pentecostalism persecutory delusions during meet, paranoid, reactive. Decision made to send him to senior care treatment at [facility] [place]. MANAGEMENT PLAN: administrative meeting for [facility] treatment at [facility] [place] today Current Medications Cogentin 1 mg tid Prolixin 10mg tid Trazodone Desyrel 50 mg QHSP PRN PO INSOMNIA Haldol decanoate 300mg IM on 12/20/18 inderal 10mg tid TIME SPENT: 30 minutes. Vital Signs Vital Signs Date Time Temp Pulse Resp B/P (MAP) Pulse Ox O2 Delivery O2 Flow Rate FiO2 01/02/19 08:08 57 130/74 01/02/19 06:39 98.7 16 Current Medications Current Medications Acetaminophen (Tylenol Tab) 650 mg Q6HP PRN PO HEADACHE or DISCOMFORT Last administered on 12/19/18 10:27; Start 12/09/18 at 13:45 Al Hydrox/Mg Hydrox/Simethicone (Mylanta) 30 ml Q4HP PRN PO HEARTB URN/INDIGESTION Last administered on 12/30/18 13:51; Start 12/09/18 at 13:45 Benztropine Mesylate (Cogentin) 1 mg BID PO Last administered on 12/29/18 09:09; Start 12/12/18 at 09:00; Stop 12/29/18 at 11:14; Status DC Benztropine Mesylate (Cogentin) 1 mg TID PO Last administered on 01/02/19 08:08; Start 12/29/18 at 16:00 Cetylpyridinium Chloride (Cepacol) 1 emily Q2HP PRN PO SORE THROAT Last administered on 12/22/18 20:25; Start 12/21/18 at 21:15 Docusate Sodium (Colace) 100 mg BID PO Last administered on 01/02/19 08:07; Start 12/19/18 at 21:00 Fluphenazine HCl (Prolixin) 10 mg TID PO Last administered on 12/31/18 08:14; Start 12/29/18 at 09:00 Haloperidol (Haldol) 5 mg TID PO Last administered on 12/14/18 08:38; Start 12/12/18 at 09:00; Stop 12/14/18 at 13:21; Status DC Haloperidol (Haldol) 7.5 mg TID PO Last administered on 12/15/18 20:49; Start 12/14/18 at 16:00; Stop 12/16/18 at 09:19; Status DC Haloperidol (Haldol) 10 mg BID PO ; Start 12/21/18 at 09:00; Stop 12/24/18 at 10:46; Status DC Haloperidol (Haldol) 10 mg BID PO ; Start 12/21/18 at 21:00; Stop 12/21/18 at 21:00; Status DC Haloperidol (Haldol) 10 mg STAT STAT IM Last administered on 12/13/18at 01:35; Start 12/13/18 at 01:26; Stop 12/13/18 at 01:28; Status DC Haloperidol (Haldol) 10 mg TID PO Last administered on 12/19/18at 22:00; Start 12/16/18 at 12:00; Stop 12/21/18 at 10:25; Status DC Haloperidol (Haldol) 10 mg TID PO ; Start 12/21/18 at 12:00; Stop 12/21/18 at 12:00; Status DC Haloperidol (Haldol) 10 mg TID PO Last administered on 12/27/18at 21:29; Start 12/24/18 at 16:00; Stop 12/29/18 at 11:14; Status DC Home Med (Med Rec Complete!) ASDIRECTED XX ; Start 12/09/18 at 14:00; Stop 12/09/18 at 14:00; Status DC Lorazepam (Ativan) 2 mg STAT STAT PO Last administered on 12/09/18at 11:58; Start 12/09/18 at 11:40; Stop 12/09/18 at 11:41; Status DC Magnesium Hydroxide (Milk Of Magnesia) 30 ml DAILYPRN PRN PO CONSTIPATION Last administered on 12/26/18at 09:16; Start 12/09/18 at 13:45 Miscellaneous (Unresolved Clarification Entry) SEE LABEL COMMENTS DAILY XX ; Start 12/10/18 at 09:00; Stop 12/10/18 at 14:48; Status DC Non-Formulary Medication ( See Comment Field Below ) SEE COMMENTS SECTION 1T@10 XX ; Start 12/25/18 at 10:00; Stop 12/26/18 at 09:59; Status UNV Non-Formulary Medication ( See Comment Field Below ) SEE LABEL COMMENTS DAILY XX ; Start 12/23/18 at 09:00 Olanzapine (ZyPREXA ZYDIS) 5 mg Q6HP PRN PO AGITATION; Start 12/09/18 at 13:45 Paliperidone (Invega) 3 mg BID PO ; Start 12/09/18 at 09:00; Status Cancel Pantoprazole Sodium (Protonix) 40 mg DAILY PO Last administered on 12/31/18 08:14; Start 12/10/18 at 09:00 Propranolol HCl (Inderal) 10 mg TID PO Last administered on 01/02/19at 08:08; Start 12/29/18 at 09:00 Quetiapine Fumarate (SEROquel) 50 mg TID PO Last administered on 12/13/18at 08:41; Start 12/09/18 at 16:00; Stop 12/13/18 at 11:57; Status DC Trazodone HCl (Desyrel) 50 mg QHSP PRN PO INSOMNIA Last administered on 12/22/18at 20:25; Start 12/09/18 at 13:45 Allergies Coded Allergies: Penicillins (Verified Allergy, Unknown, 12/09/18) also penicillin cross reactors risperidone (Verified Allergy, Unknown, 12/09/18) KEARA PARTIDA DO Jan 02, 2019 08:46
[2019-01-02 18:07] VITALS: BP 117/67
[2019-01-03] MEDS: BENZTROPINE 1 MG TAB PO SCH ×3 (09:00→20:39)
[2019-01-03] MEDS: **PENDING PPD ENTRY XX SCH (09:00)
[2019-01-03] MEDS: PANTOPRAZOLE 40MG TAB (PROTONIX) PO SCH (09:00)
[2019-01-03] MEDS: DOCUSATE SODIUM 100 MG CAP PO SCH ×2 (09:00→20:39)
[2019-01-03] MEDS: PROPRANOLOL 10 MG TAB PO SCH ×3 (09:01→20:43)
[2019-01-03 09:02] VITALS: BP 120/77
[2019-01-03 18:09] VITALS: BP 122/74
[2019-01-04] MEDS: DOCUSATE SODIUM 100 MG CAP PO SCH ×2 (08:43→21:43)
[2019-01-04] MEDS: BENZTROPINE 1 MG TAB PO SCH ×3 (08:43→21:43)
[2019-01-04] MEDS: PROPRANOLOL 10 MG TAB PO SCH ×3 (08:44→21:43)
[2019-01-04] MEDS: **PENDING PPD ENTRY XX SCH (08:52)
[2019-01-04] MEDS: PANTOPRAZOLE 40MG TAB (PROTONIX) PO SCH (08:52)
[2019-01-04 18:09] VITALS: BP 139/87
[2019-01-05 06:32] VITALS: BP 145/74
[2019-01-05] MEDS: PROPRANOLOL 10 MG TAB PO SCH ×3 (08:56→20:26)
[2019-01-05] MEDS: DOCUSATE SODIUM 100 MG CAP PO SCH ×2 (08:56→20:26)
[2019-01-05] MEDS: BENZTROPINE 1 MG TAB PO SCH ×3 (08:56→20:26)
[2019-01-05] MEDS: PANTOPRAZOLE 40MG TAB (PROTONIX) PO SCH (08:56)
[2019-01-05] MEDS: **PENDING PPD ENTRY XX SCH (08:59)
--- NOTE | 2019-01-05 10:00 | MHIPNPDOC ---
[facility] Progress Note Progress Note DATE OF SERVICE: 01/05/19 HISTORY: Patient is a 63 -year-old , male, with a psych history of paranoid schizophrenia and multiple admission [facility] and [facility] [place] who was brought to ED by his sister due to psychotic, paranoid, religiously preoccupied symptoms. Per ED pt stopped taking his medications and following up at [facility] b/c "I didn't want to" and "I'm allergic to all psychotropics." Pt's sister also told ED that pt warned her to not come in his apt b/c she will be in danger and that his landlord called her to inform her that pt has been knocking on tenant's doors, yelling and preaching to them. 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 Pt is a very poor historian so history gathered from ED report of evaluation. VITAL SIGNS: See below. NEW TEST RESULTS: None CURRENT MEDICATIONS: See below. MENTAL STATUS EXAMINATION: no change from yesterday Patient is a 63-year old male, who is being treated for schizophrenia oral Haldol and patient has received IM shot. Appears to have akathisia and endorses urge to move Speech: Is brief. Language skills are, characterized by brief statements. Some friendly and some persecuted, bizarre, and paranoid. Thought processes including: As above. Very bizarre and concrete Thought content: pentecostalism and sexual preoccupied thoughts talking of micro chip in mouth connected to the holy spirit. Paranoid that he's being over medicated and that the water is poisoned today. Yelled at me about it spontaneously when seen and walked away Abstract reasoning, and computation: limited. Description of associations:. Loose association. Description of abnormal or psychotic thoughts: Persecutory thoughts continue, pentecostalism and sexual preoccupied thoughts, paranoia regarding meds and possibly people in milieu. Paranoid delusions as told me today "I have a micro chip in my mouth connected to the holy spirit hooked up right here (pointed to lt temporal lobe of head)... I can show you in my room." Wanted to get very close to me to tell me paranoid delusions and had to tell pt not to stand so close and I backed up from pt for my safety as sexually preoccupied. Paranoid that he's being over medicated and that the water is poisoned today. Somatic delusions of bowel impaction a few times a week that he states he spontaneously clears on his own. Judgment: poor Insight: Poor. Orientation: Intact 3. Recent and remote memory:. Intact. Attention span and concentration: Poor. Language: Intact. Fund of knowledge: below average and limited due to psychosis Mood: labile and reactive, at times agitated due to paranoid delusions at times. Affect: Congruent. DIAGNOSES: 1. Schizophrenia. ASSESSMENT: No change since last week. 63-year-old male diagnosed with schizophrenia with on oral Prolixin started yesterday and given haldol IM injection although continues to have pentecostalism and sexual preoccupied thoughts, bizarre/paranoid delusions although appear mildly less today. Today stated there's something wrong with his sole and he's having problems with the holy spirit. Per 12/30/18 "Told me today "I have a micro chip in my mouth connected to the holy spirit hooked up right here (pointed to lt temporal lobe of head)... I can show you in my room." Wanted to get very close to me to tell me paranoid delusions and had to tell pt not to stand so close and I backed up from pt for my safety as sexually preoccupied." Yesterday, "paranoid that he's being over medicated and that the water is poisoned. Yelled at me about it spontaneously when seen and walked away." Today stated he had a "bowel impaction" that he got rid of on his own when seen (appears to be somatic delusion as talks of bowels occasionally and bowel impaction that he spontaneously clears on his own). Appears to have akathisia as shuffles feet and clenches/unclenches hands and started on inderal to improved with cogentin changed to tid. Currently walking milieu responding to internal stimuli. Continues to be bizarre and odd mannerisms. Is sitting in door way of his room looking out into the [place], daily. Paranoid. Seen yesterday for administrative meeting. Pt psychotic, delusional, at times yelling pentecostalism persecutory delusions during meet, paranoid, reactive. Decision made to send him to half-way treatment at [facility] [place]. MANAGEMENT PLAN: administrative meeting for half-way treatment at [facility] today Current Medications Cogentin 1 mg tid Prolixin 10mg tid Trazodone Desyrel 50 mg QHSP PRN PO INSOMNIA Haldol decanoate 300mg IM on 12/20/18 inderal 10mg tid TIME SPENT: 30 minutes. Vital Signs Vital Signs Date Time Temp Pulse Resp B/P (MAP) Pulse Ox O2 Delivery O2 Flow Rate FiO2 01/05/19 08:56 69 124/76 01/05/19 06:32 97.7 16 Current Medications Current Medications Acetaminophen (Tylenol Tab) 650 mg Q6HP PRN PO HEADACHE or DISCOMFORT Last administered on 12/19/18 10:27; Start 12/09/18 at 13:45 Al Hydrox/Mg Hydrox/Simethicone (Mylanta) 30 ml Q4HP PRN PO HEARTBURN/INDIGESTION Last administered on 12/30/18 13:51; Start 12/09/18 at 13:45 Benztropine Mesylate (Cogentin) 1 mg BID PO Last administered on 12/29/18 09 :09; Start 12/12/18 at 09:00; Stop 12/29/18 at 11:14; Status DC Benztropine Mesylate (Cogentin) 1 mg TID PO Last administered on 01/05/19at 08:56; Start 12/29/18 at 16:00 Cetylpyridinium Chloride (Cepacol) 1 emily Q2HP PRN PO SORE THROAT Last administered on 12/22/18at 20:25; Start 12/21/18 at 21:15 Docusate Sodium (Colace) 100 mg BID PO Last administered on 01/05/19 08:56; Start 12/19/18 at 21:00 Fluphenazine HCl (Prolixin) 10 mg TID PO Last administered on 01/03/19at 20:39; Start 12/29/18 at 09:00 Haloperidol (Haldol) 5 mg TID PO Last administered on 12/14/18at 08:38; Start 12/12/18 at 09:00; Stop 12/14/18 at 13:21; Status DC Haloperidol (Haldol) 7.5 mg TID PO Last administered on 12/15/18at 20:49; Start 12/14/18 at 16:00; Stop 12/16/18 at 09:19; Status DC Haloperidol (Haldol) 10 mg BID PO ; Start 12/21/18 at 09:00; Stop 12/24/18 at 10:46; Status DC Haloperidol (Haldol) 10 mg BID PO ; Start 12/21/18 at 21:00; Stop 12/21/18 at 21:00; Status DC Haloperidol (Haldol) 10 mg STAT STAT IM Last administered on 12/13/18at 01:35; Start 12/13/18 at 01:26; Stop 12/13/18 at 01:28; Status DC Haloperidol (Haldol) 10 mg TID PO Last administered on 12/19/18at 22:00; Start 12/16/18 at 12:00; Stop 12/21/18 at 10:25; Status DC Haloperidol (Haldol) 10 mg TID PO ; Start 12/21/18 at 12:00; Stop 12/21/18 at 12:00; Status DC Haloperidol (Haldol) 10 mg TID PO Last administered on 12/27/18at 21:29; Start 12/24/18 at 16:00; Stop 12/29/18 at 11:14; Status DC Home Med (Med Rec Complete!) ASDIRECTED XX ; Start 12/09/18 at 14:00; Stop 12/09/18 at 14:00; Status DC Lorazepam (Ativan) 2 mg STAT STAT PO Last administered on 12/09/18at 11:58; Start 12/09/18 at 11:40; Stop 12/09/18 at 11:41; Status DC Magnesium Hydroxide (Milk Of Magnesia) 30 ml DAILYPRN PRN PO CONSTIPATION Last administered on 12/26/18at 09:16; Start 12/09/18 at 13:45 Miscellaneous (Unresolved Clarification Entry) SEE LABEL COMMENTS DAILY XX ; St art 12/10/18 at 09:00; Stop 12/10/18 at 14:48; Status DC Non-Formulary Medication ( See Comment Field Below ) SEE COMMENTS SECTION 1T@10 XX ; Start 12/25/18 at 10:00; Stop 12/26/18 at 09:59; Status UNV Non-Formulary Medication ( See Comment Field Below ) SEE LABEL COMMENTS DAILY XX ; Start 12/23/18 at 09:00 Olanzapine (ZyPREXA ZYDIS) 5 mg Q6HP PRN PO AGITATION; Start 12/09/18 at 13:45 Paliperidone (Invega) 3 mg BID PO ; Start 12/09/18 at 09:00; Status Cancel Pantoprazole Sodium (Protonix) 40 mg DAILY PO Last administered on 01/05/19at 08:56; Start 12/10/18 at 09:00 Propranolol HCl (Inderal) 10 mg TID PO Last administered on 01/05/19at 08:56; Start 12/29/18 at 09:00 Quetiapine Fumarate (SEROquel) 50 mg TID PO Last administered on 12/13/18at 08:4 1; Start 12/09/18 at 16:00; Stop 12/13/18 at 11:57; Status DC Trazodone HCl (Desyrel) 50 mg QHSP PRN PO INSOMNIA Last administered on 12/22/18at 20:25; Start 12/09/18 at 13:45 Allergies Coded Allergies: Penicillins (Verified Allergy, Unknown, 12/09/18) also penicillin cross reactors risperidone (Verified Allergy, Unknown, 12/09/18) KEARA PARTIDA DO Jan 05, 2019 9:29 am
[2019-01-05 18:00] VITALS: BP 129/90
[2019-01-06 06:36] VITALS: BP 146/81
[2019-01-06] MEDS: PANTOPRAZOLE 40MG TAB (PROTONIX) PO SCH (08:59)
[2019-01-06] MEDS: BENZTROPINE 1 MG TAB PO SCH ×3 (08:59→20:00)
[2019-01-06] MEDS: DOCUSATE SODIUM 100 MG CAP PO SCH ×2 (08:59→20:00)
[2019-01-06] MEDS: PROPRANOLOL 10 MG TAB PO SCH ×3 (09:00→20:00)
[2019-01-06] MEDS: **PENDING PPD ENTRY XX SCH (09:00)
[2019-01-06] MEDS ORDERED: TUBERCULIN PPD 5 UNITS/0.1 ML ID ONE ×3 (10:15→13:00)
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
[2019-01-06 18:00] VITALS: BP 128/78
[2019-01-07 06:43] VITALS: BP 122/79
[2019-01-07] MEDS: BENZTROPINE 1 MG TAB PO SCH ×3 (09:05→20:32)
[2019-01-07] MEDS: PANTOPRAZOLE 40MG TAB (PROTONIX) PO SCH (09:05)
[2019-01-07] MEDS: DOCUSATE SODIUM 100 MG CAP PO SCH ×2 (09:05→20:32)
[2019-01-07] MEDS: PROPRANOLOL 10 MG TAB PO SCH ×3 (09:06→20:48)
--- NOTE | 2019-01-07 09:46 | ECGEPIP ---
[facility] Test Date: 2019-01-06 Pat Name: JOSELIN ROMO Department: Room: [place] [address] Gender: Male Discharge Planner: CHANDRA : [id number] Requested By: KEARA Meyer Order Number: [id number] Reading MD: Henry Cowart Measurements Intervals [place] Rate: 61 P: NE: 150 QRS: 27 QRSD: 83 T: 51 QT: 400 QTc: 405 Interpretive Statements SINUS RHYTHM VOLTAGE CRITERIA FOR [facility] Nonspecific ST-T wave abnormalities Electronically Signed on 01-07-2019 9:45:54 EDT by Henry Cowart
--- NOTE | 2019-01-07 09:53 | MHIPNPDOC ---
[facility] Progress Note Progress Note DATE OF SERVICE: 01/07/19 HISTORY: Patient is a 63 -year-old , male, with a psych history of paranoid schizophrenia and multiple admission [facility] and [facility] who was brought to ED by his sister due to psychotic, paranoid, religiously preoccupied symptoms. Per ED pt stopped taking his medications and following up at [facility] b/c "I didn't want to" and "I'm allergic to all psychotropics." Pt's sister also told ED that pt warned her to not come in his apt b/c she will be in danger and that his landlord called her to inform her that pt has been knocking on tenant's doors, yelling and preaching to them. 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 Pt is a very poor historian so history gathered from ED report of evaluation. VITAL SIGNS: See below. NEW TEST RESULTS: None CURRENT MEDICATIONS: See below. MENTAL STATUS EXAMINATION: no change from yesterday Patient is a 63-year old male, who is being treated for schizophrenia oral Haldol and patient has received IM shot. Appears to have akathisia and endorses urge to move Speech: Is brief. Language skills are, characterized by brief statements. Some friendly and some persecuted, bizarre, and paranoid. Thought processes including: As above. Very bizarre and concrete Thought content: moravian and sexual preoccupied thoughts talking of micro chip in mouth connected to the holy spirit. Paranoid that he's being over medicated and that the water is poisoned today. Yelled at me about it spontaneously when seen and walked away Abstract reasoning, and computation: limited. Description of associations:. Loose association. Description of abnormal or psychotic thoughts: Persecutory thoughts continue, moravian and sexual preoccupied thoughts, paranoia regarding meds and possibly people in milieu. Paranoid delusions as told me today "I have a micro chip in my mouth connected to the holy spirit hooked up right here (pointed to lt temporal lobe of head)... I can show you in my room." Wanted to get very close to me to tell me paranoid delusions and had to tell pt not to stand so close and I backed up from pt for my safety as sexually preoccupied. Paranoid that he's being over medicated and that the water is poisoned today. Somatic delusions of bowel impaction a few times a week that he states he spontaneously clears on his own. Judgment: poor Insight: Poor. Orientation: Intact 3. Recent and remote memory:. Intact. Attention span and concentration: Poor. Language: Intact. Fund of knowledge: below average and limited due to psychosis Mood: labile and reactive, at times agitated due to paranoid delusions at times. Affect: Congruent. DIAGNOSES: 1. Schizophrenia. ASSESSMENT: No change since yesterday. 63-year-old male diagnosed with schizophrenia with on oral Prolixin started yesterday and given haldol IM injection although continues to have moravian and sexual preoccupied thoughts, bizarre/paranoid delusions although appear mildly less today. Today upset he can't have his regular clothing like other pt's on the unit and said a delusional statement regarding not being able to have them under his breath. Per 12/30/18 "Told me today "I have a micro chip in my mouth connected to the holy spirit hooked up right here (pointed to lt temporal lobe of head)... I can show you in my room." Wanted to get very close to me to tell me paranoid delusions and had to tell pt not to stand so close and I backed up from pt for my safety as sexually preoccupied." Yesterday, "paranoid that he's being over medicated and that the water is poisoned. Yelled at me about it spontaneously when seen and walked away." Today stated he had a "bowel impaction" that he got rid of on his own when seen (appears to be somatic delusion as talks of bowels occasionally and bowel impaction that he spontaneously clears on his own). Ap pears to have akathisia as shuffles feet and clenches/unclenches hands and started on inderal to improved with cogentin changed to tid. Currently walking milieu responding to internal stimuli. Continues to be bizarre and odd mannerisms. Is sitting in door way of his room looking out into the [place], daily. Paranoid. Seen yesterday for administrative meeting. Pt psychotic, delusional, at times yelling moravian persecutory delusions during meet, paranoid, reactive. Decision made to send him to residential treatment at [facility]. 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 Vital Signs Vital Signs Date Time Temp Pulse Resp B/P (MAP) Pulse Ox O2 Delivery O2 Flow Rate FiO2 01/07/19 09:06 74 122/79 01/07/19 06:43 98.3 16 Current Medications Current Medications Acetaminophen (Tylenol Tab) 650 mg Q6HP PRN PO HEADACHE or DISCOMFORT Last administered on 12/19/18at 10:27; Start 12/09/18 at 13:45 Al Hydrox/Mg Hydrox/Simethicone (Mylanta) 30 ml Q4HP PRN PO HEARTBURN/INDIGESTION Last administered on 12/30/18at 13:51; Start 12/09/18 at 13:45 Benztropine Mesylate (Cogentin) 1 mg BID PO Last administered on 12/29/18 09:09; Start 12/12/18 at 09:00; Stop 12/29/18 at 11:14; Status DC Benztropine Mesylate (Cogentin) 1 mg TID PO Last administered on 01/07/19 09:05; Start 12/29/18 at 16:00 Cetylpyridinium Chloride (Cepacol) 1 emily Q2HP PRN PO SORE THROAT Last administered on 12/22/18at 20:25; Start 12/21/18 at 21:15 Docusate Sodium (Colace) 100 mg BID PO Last administered on 01/07/19 09:05; Start 12/19/18 at 21:00 Fluphenazine HCl (Prolixin) 10 mg TID PO Last administered on 01/06/19at 20:00; Start 12/29/18 at 09:00 Haloperidol (Haldol) 5 mg TID PO Last administered on 12/14/18at 08:38; Start at 09:00; Stop 12/14/18 at 13:21; Status DC Haloperidol (Haldol) 7.5 mg TID PO Last administered on 12/15/18at 20:49; Start 12/14/18 at 16:00; Stop 12/16/18 at 09:19; Status DC Haloperidol (Haldol) 10 mg BID PO ; Start 12/21/18 at 09:00; Stop 12/24/18 at 10:46; Status DC Haloperidol (Haldol) 10 mg BID PO ; Start 12/21/18 at 21:00; Stop 12/21/18 at 21:00; Status DC Haloperidol (Haldol) 10 mg STAT STAT IM Last administered on 12/13/18at 01:35; Start 12/13/18 at 01:26; Stop 12/13/18 at 01:28; Status DC Haloperidol (Haldol) 10 mg TID PO Last administered on 12/19/18at 22:00; Start 12/16/18 at 12:00; Stop 12/21/18 at 10:25; Status DC Haloperidol (Haldol) 10 mg TID PO ; Start 12/21/18 at 12:00; Stop 12/21/18 at 12:00; Status DC Haloperidol (Haldol) 10 mg TID PO Last administered on 12/27/18at 21:29; Start 12/24/18 at 16:00; Stop 12/29/18 at 11:14; Status DC Home Med (Med Rec Complete!) ASDIRECTED XX ; Start 12/09/18 at 14:00; Stop 12/09/18 at 14:00; Status DC Lorazepam (Ativan) 2 mg STAT STAT PO Last administered on 12/09/18at 11:58; Start 12/09/18 at 11:40; Stop 12/09/18 at 11:41; Status DC Magnesium Hydroxide (Milk Of Magnesia) 30 ml DAILYPRN PRN PO CONSTIPATION Last administered on 12/26/18at 09:16; Start 12/09/18 at 13:45 Miscellaneous (Unresolved Clarification Entry) SEE LABEL COMMENTS DAILY XX ; Start 12/10/18 at 09:00; Stop 12/10/18 at 14:48; Status DC Non-Formulary Medication ( See Comment Field Below ) SEE COMMENTS SECTION 1T@10 XX ; Start 12/25/18 at 10:00; Stop 12/26/18 at 09:59; Status UNV Non-Formulary Medication ( See Comment Field Below ) SEE COMMENTS SECTION 1T@10 XX ; Start 01/08/19 at 10:00; Stop 01/08/19 at 10:00; Status DC Non-Formulary Medication ( See Comment Field Below ) SEE LABEL COMMENTS DAILY XX ; Start 12/23/18 at 09:00; Stop 01/06/19 at 10:28; Status DC Olanzapine (ZyPREXA ZYDIS) 5 mg Q6HP PRN PO AGITATION; Start 12/09/18 at 1 3:45 Paliperidone (Invega) 3 mg BID PO ; Start 12/09/18 at 09:00; Status Cancel Pantoprazole Sodium (Protonix) 40 mg DAILY PO Last administered on 01/07/19at 09:05; Start 12/10/18 at 09:00 Propranolol HCl (Inderal) 10 mg TID PO Last administered on 01/07/19at 09:06; Start 12/29/18 at 09:00 Quetiapine Fumarate (SEROquel) 50 mg TID PO Last administered on 12/13/18at 08:41; Start 12/09/18 at 16:00; Stop 12/13/18 at 11:57; Status DC Trazodone HCl (Desyrel) 50 mg QHSP PRN PO INSOMNIA Last administered on at 20:25; Start 12/09/18 at 13:45 Allergies Coded Allergies: Penicillins (Verified Allergy, Unknown, 12/09/18) also penicillin cross reactors risperidone (Verified Allergy, Unknown, 12/09/18) KEARA PARTIDA DO Jan 07, 2019 09:19
[2019-01-07 18:00] VITALS: BP 130/77
[2019-01-08 07:05] VITALS: BP 123/75
[2019-01-08] MEDS: PROPRANOLOL 10 MG TAB PO SCH ×3 (08:15→21:00)
[2019-01-08] MEDS: BENZTROPINE 1 MG TAB PO SCH ×3 (08:15→20:50)
[2019-01-08] MEDS: DOCUSATE SODIUM 100 MG CAP PO SCH ×2 (08:15→20:50)
[2019-01-08] MEDS: PANTOPRAZOLE 40MG TAB (PROTONIX) PO SCH (08:15)
[2019-01-08] MEDS ORDERED: PPD DOCUMENTATION ENTRY MISC XX SCH (10:00)
--- NOTE | 2019-01-08 10:06 | MHIPNPDOC ---
[facility] Progress Note Progress Note DATE OF SERVICE: 01/08/19 HISTORY: Patient is a 63 -year-old , male, with a psych history of paranoid schizophrenia and multiple admission [facility], [facility] and [facility] who was brought to ED by his sister due to psychotic, paranoid, religiously preoccupied symptoms. Per ED pt stopped taking his medications and following up at [facility] b/c "I didn't want to" and "I'm allergic to all psychotropics." Pt's sister also told ED that pt warned her to not come in his apt b/c she will be in danger and that his landlord called her to inform her that pt has been knocking on tenant's doors, yelling and preaching to them. 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 Pt is a very poor historian so history gathered from ED report of evaluation. VITAL SIGNS: See below. NEW TEST RESULTS: None CURRENT MEDICATIONS: See below. MENTAL STATUS EXAMINATION: no change from yesterday Patient is a 63-year old male, who is being treated for schizophrenia oral Haldol and patient has received IM shot. Appears to have akathisia and endorses urge to move Speech: Is brief. Language skills are, characterized by brief statements. Some friendly and some persecuted, bizarre, and paranoid. Thought processes including: As above. Very bizarre and concrete Thought content: worship and sexual preoccupied thoughts talking of micro chip in mouth connected to the holy spirit. Paranoid that he's being over medicated and that the water is poisoned today. Yelled at me about it spontaneously when seen and walked away Abstract reasoning, and computation: limited. Description of associations:. Loose association. Description of abnormal or psychotic thoughts: Persecutory thoughts continue, worship and sexual preoccupied thoughts, paranoia regarding meds and possibly people in milieu. Paranoid delusions as told me today "I have a micro chip in my mouth connected to the holy spirit hooked up right here (pointed to lt temporal lobe of head)... I can show you in my room." Wanted to get very close to me to tell me paranoid delusions and had to tell pt not to stand so close and I backed up from pt for my safety as sexually preoccupied. Paranoid that he's being over medicated and that the water is poisoned today. Somatic delusions of bowel impaction a few times a week that he states he spontaneously clears on his own. Judgment: poor Insight: Poor. Orientation: Intact 3. Recent and remote memory:. Intact. Attention span and concentration: Poor. Language: Intact. Fund of knowledge: below average and limited due to psychosis Mood: labile and reactive, at times agitated due to paranoid delusions at times. Affect: Congruent. DIAGNOSES: 1. Schizophrenia. ASSESSMENT: No change since yesterday. 63-year-old male diagnosed with schizophrenia with on oral Prolixin started yesterday and given haldol IM injection although continues to have worship and sexual preoccupied thoughts, bizarre/paranoid delusions although appear mildly less today. Today states he's allergic to "all antipsychotics" which is not true. He is compliant with his meds. Per 12/30/18 "Told me today "I have a micro chip in my mouth connected to the holy spirit hooked up right here (pointed to lt temporal lobe of head)... I can show you in my room." Wanted to get very close to me to tell me paranoid delusions and had to tell pt not to stand so close and I backed up from pt for my safety as sexually preoccupied." Yesterday, "paranoid that he's being over medicated and that the water is poisoned. Yelled at me about it spontaneously when seen and walked away." Today stated he had a "bowel impaction" that he got rid of on his own when seen (appears to be somatic delusion as talks of bowels occasionally and bowel impaction that he spontaneously clears on his own). Appears to have akathisia as shuffles feet and clenches/unclenches hands and started on inderal to improved with cogentin changed to tid. Currently walking milieu responding to internal stimuli. Continues to be bizarre and odd mannerisms. Is sitting in door way of his room looking out into the [place], daily. Paranoid. Seen yesterday for administrative meeting. Pt psychotic, delusional, at times yelling worship persecutory delusions during meet, paranoid, reactive. Decision made to send him to snf treatment at [facility]. MANAGEMENT PLAN: administrative meeting for snf treatment at [facility] today Current Medications Cogentin 1 mg tid Prolixin 10mg tid Trazodone 50 mg QHSP PRN PO INSOMNIA Haldol decanoate 300mg IM on 12/20/18 inderal 10mg tid TIME SPENT: 30 minutes. Vital Signs Vital Signs Date Time Temp Pulse Resp B/P (MAP) Pulse Ox O2 Delivery O2 Flow Rate FiO2 01/08/19 08:15 79 123/75 01/08/19 07:05 97.3 16 Current Medications Current Medications Acetaminophen (Tylenol Tab) 650 mg Q6HP PRN PO HEADACHE or DISCOMFORT Last administered on 12/19/18at 10:27; Start 12/09/18 at 13:45 Al Hydrox/Mg Hydrox/Simethicone (Mylanta) 30 ml Q4HP PRN PO HEARTBURN/INDIGESTION Last administered on 12/30/18at 13:51; Start 12/09/18 at 13:45 Benztropine Mesylate (Cogentin) 1 mg BID PO Last administered on 12/29/18 09:09; Start 12/12/18 at 09:00; Stop 12/29/18 at 11:14; Status DC Benztropine Mesylate (Cogentin) 1 mg TID PO Last administered on 01/08/19at 08:15; Start 12/29/18 at 16:00 Cetylpyridinium Chloride (Cepacol) 1 emily Q2HP PRN PO SORE THROAT Last administered on 12/22/18at 20:25; Start 12/21/18 at 21:15 Docusate Sodium (Colace) 100 mg BID PO Last administered on 01/08/19at 08:15; Start 12/19/18 at 21:00 Fluphenazine HCl (Prolixin) 10 mg TID PO Last administered on 01/08/19at 08:15; Start 12/29/18 at 09:00 Haloperidol (Haldol) 5 mg TID PO Last administered on 12/14/18at 08:38; Start 12/12/18 at 09:00; Stop 12/14/18 at 13:21; Status DC Haloperidol (Haldol) 7.5 mg TID PO Last administered on 12/15/18at 20:49; Start 12/14/18 at 16:00; Stop 12/16/18 at 09:19; Status DC Haloperidol (Haldol) 10 mg BID PO ; Start 12/21/18 at 09:00; Stop 12/24/18 at 10:46; Status DC Haloperidol (Haldol) 10 mg BID PO ; Start 12/21/18 at 21:00; Stop 12/21/18 at 21:00; Status DC Haloperidol (Haldol) 10 mg STAT STAT IM Last administered on 12/13/18at 01:35; Start 12/13/18 at 01:26; Stop 12/13/18 at 01:28; Status DC Haloperidol (Haldol) 10 mg TID PO Last administered on 12/19/18at 22:00; Start 12/16/18 at 12:00; Stop 12/21/18 at 10:25; Status DC Haloperidol (Haldol) 10 mg TID PO ; Start 12/21/18 at 12:00; Stop 12/21/18 at 12:00; Status DC Haloperidol (Haldol) 10 mg TID PO Last administered on 12/27/18at 21:29; Start 12/24/18 at 16:00; Stop 12/29/18 at 11:14; Status DC Home Med (Med Rec Complete!) ASDIRECTED XX ; Start 12/09/18 at 14:00; Stop at 14:00; Status DC Lorazepam (Ativan) 2 mg STAT STAT PO Last administered on 12/09/18at 11:58; Start 12/09/18 at 11:40; Stop 12/09/18 at 11:41; Status DC Magnesium Hydroxide (Milk Of Magnesia) 30 ml DAILYPRN PRN PO CONSTIPATION Last administered on 12/26/18at 09:16; Start 12/09/18 at 13:45 Miscellaneous (Unresolved Clarification Entry) SEE LABEL COMMENTS DAILY XX ; Start 12/10/18 at 09:00; Stop 12/10/18 at 14:48; Status DC Miscellaneous (Unresolved Clarification Entry) SEE LABEL COMMENTS DAILY XX ; Start 01/07/19 at 09:00; Status Cancel Miscellaneous (Unresolved Clarification Entry) SEE LABEL COMMENTS DAILY XX ; Start 01/08/19 at 09:00 Non-Formulary Medication ( See Comment Field Below ) SEE COMMENTS SECTION 1T@10 XX ; Start 12/25/18 at 10:00; Stop 12/26/18 at 09:59; Status UNV Non-Formulary Medication ( See Comment Field Below ) SEE COMMENTS SECTION 1T@10 XX ; Start 01/08/19 at 10:00; Stop 01/08/19 at 10:00; Status DC Non-Formulary Medication ( See Comment Field Below ) SEE LABEL COMMENTS DAILY XX ; Start 12/23/18 at 09:00; Stop 01/06/19 at 10:28; Status DC Olanzapine (ZyPREXA ZYDIS) 5 mg Q6HP PRN PO AGITATION; Start 12/09/18 at 13:45 Paliperidone (Invega) 3 mg BID PO ; Start 12/09/18 at 09:00; Status Cancel Pantoprazole Sodium (Protonix) 40 mg DAILY PO Last administered on 01/08/19at 08:15; Start 12/10/18 at 09:00 Propranolol HCl (Inderal) 10 mg TID PO Last administered on 01/08/19at 08:15; Start 12/29/18 at 09:00 Quetiapine Fumarate (SEROquel) 50 mg TID PO Last administered on 12/13/18at 08:41; Start 12/09/18 at 16:00; Stop 12/13/18 at 11:57; Status DC Trazodone HCl (Desyrel) 50 mg QHSP PRN PO INSOMNIA Last administered on 12/22/18at 20:25; Start 12/09/18 at 13:45 Allergies Coded Allergies: Penicillins (Verified Allergy, Unknown, 12/09/18) also penicillin cross reactors risperidone (Verified Allergy, Unknown, 12/09/18) KEARA PARTIDA DO Jan 08, 2019 10:06 am
[2019-01-08] MEDS ORDERED: PPD DOCUMENTATION ENTRY MISC XX ONE ×2 (10:30→13:00)
[2019-01-09 07:00] VITALS: BP 147/84
[2019-01-09] MEDS: DOCUSATE SODIUM 100 MG CAP PO SCH ×2 (08:31→22:00)
[2019-01-09] MEDS: BENZTROPINE 1 MG TAB PO SCH ×3 (08:31→22:01)
[2019-01-09] MEDS: PROPRANOLOL 10 MG TAB PO SCH ×3 (08:32→22:01)
[2019-01-09] MEDS: PANTOPRAZOLE 40MG TAB (PROTONIX) PO SCH (09:00)
--- NOTE | 2019-01-09 11:54 | MHIPNPDOC ---
[facility] Progress Note Progress Note DATE OF SERVICE: 01/09/19 HISTORY: Patient is a 63 -year-old , male, with a psych history of paranoid schizophrenia and multiple admission [facility] who was brought to ED by his sister due to psychotic, paranoid, religiously preoccupied symptoms. Per ED pt stopped taking his medications and following up at [facility] b/c "I didn't want to" and "I'm allergic to all psychotropics." Pt's sister also told ED that pt warned her to not come in his apt b/c she will be in danger and that his landlord called her to inform her that pt has been knocking on tenant's doors, yelling and preaching to them. 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 Pt is a very poor historian so history gathered from ED report of evaluation. VITAL SIGNS: See below. NEW TEST RESULTS: None CURRENT MEDICATIONS: See below. MENTAL STATUS EXAMINATION: no change from yesterday Patient is a 63-year old male, who is being treated for schizophrenia oral Haldol and patient has received IM shot. Appears to have akathisia and endorses urge to move Speech: Is brief. Language skills are, characterized by brief statements. Some friendly and some persecuted, bizarre, and paranoid. Thought processes including: As above. Very bizarre and concrete Thought content: voodoo and sexual preoccupied thoughts talking of micro chip in mouth connected to the holy spirit. Paranoid that he's being over medicated and that the water is poisoned today. Yelled at me about it spontaneously when seen and walked away Abstract reasoning, and computation: limited. Description of associations:. Loose association. Description of abnormal or psychotic thoughts: Persecutory thoughts continue, voodoo and sexual preoccupied thoughts, paranoia regarding meds and possibly people in milieu. Paranoid delusions as told me today "I have a micro chip in my mouth connected to the holy spirit hooked up right here (pointed to lt temporal lobe of head)... I can show you in my room." Wanted to get very close to me to tell me paranoid delusions and had to tell pt not to stand so close and I backed up from pt for my safety as sexually preoccupied. Paranoid that he's being over medicated and that the water is poisoned today. Somatic delusions of bowel impaction a few times a week that he states he spontaneously clears on his own. Judgment: poor Insight: Poor. Orientation: Intact 3. Recent and remote memory:. Intact. Attention span and concentration: Poor. Language: Intact. Fund of knowledge: below average and limited due to psychosis Mood: labile and reactive, at times agitated due to paranoid delusions at times. Affect: Congruent. DIAGNOSES: 1. Schizophrenia. ASSESSMENT: No change since yesterday. 63-year-old male diagnosed with schizophrenia with on oral Prolixin started yesterday and given haldol IM injection although continues to have voodoo and sexual preoccupied thoughts, bizarre/paranoid delusions although appear mildly less today. Today continues to state he's allergic to "all antipsychotics" which is not true. He is compliant with his meds. Per 12/30/18 "Told me today "I have a micro chip in my mouth connected to the holy spirit hooked up right here (pointed to lt temporal lobe of head)... I can show you in my room." Wanted to get very close to me to tell me paranoid delusions and had to tell pt not to stand so close and I backed up from pt for my safety as sexually preoccupied." Yesterday, "paranoid that he's being over medicated and that the water is poisoned. Yelled at me about it spontaneously when seen and walked away." Today stated he had a "bowel impaction" that he got rid of on his own when seen (appears to be somatic delusion as talks of bowels occasionally and bowel impaction that he spontaneously clears on his own). Appears to have akathisia as shuffles feet and clenches/unclenches hands and started on inderal to improved with cogentin changed to tid. Currently walking milieu responding to internal stimuli. Continues to be bizarre and odd mannerisms. Is sitting in door way of his room looking out into the [place], daily. Paranoid. Seen yesterday for administrative meeting. Pt psychotic, delusional, at times yelling voodoo persecutory delusions during meet, paranoid, reactive. Decision made to send him to penitentiary treatment at [facility]. MANAGEMENT PLAN: transfer to [facility] for prison treatment Saturday. Current Medications Cogentin 1 mg tid Prolixin 10mg tid Trazodone 50 mg QHSP PRN PO INSOMNIA Haldol decanoate 300mg IM on 12/20/18 inderal 10mg tid TIME SPENT: 30 minutes. Vital Signs Vital Signs Date Time Temp Pulse Resp B/P (MAP) Pulse Ox O2 Delivery O2 Flow Rate FiO2 01/09/19 07:00 97.6 84 16 147/84 (105) Current Medications Current Medications Acetaminophen (Tylenol Tab) 650 mg Q6HP PRN PO HEADACHE or DISCOMFORT Last administered on 12/19/18 10:27; Start 12/09/18 at 13:45 Al Hydrox/Mg Hydrox/Simethicone (Mylanta) 30 ml Q4HP PRN PO HEARTBURN/INDIGESTION Last administered on 12/30/18 13:51; Start 12/09/18 at 13:45 Benztropine Mesylate (Cogentin) 1 mg BID PO Last administered on 12/29/18 09:09; Start 12/12/18 at 09:00; Stop 12/29/18 at 11:14; Status DC Benztropine Mesylate (Cogentin) 1 mg TID PO Last administered on 01/09/19 08:31; Start 12/29/18 at 16:00 Cetylpyridinium Chloride (Cepacol) 1 emily Q2HP PRN PO SORE THROAT Last administered on 12/22/18 20:25; Start 12/21/18 at 21:15 Docusate Sodium (Colace) 100 mg BID PO Last administered on 01/09/19 08:31; Start 12/19/18 at 21:00 Fluphenazine HCl (Prolixin) 10 mg TID PO Last administered on 01/08/19 08:15; Start 12/29/18 at 09:00 Haloperidol (Haldol) 5 mg TID PO Last administered on 12/14/18 08:38; Start 12/12/18 at 09:00; Stop 12/14/18 at 13:21; Status DC Haloperidol (Haldol) 7.5 mg TID PO Last administered on 5/20/19at 20:49; Start 12/14/18 at 16:00; Stop 12/16/18 at 09:19; Status DC Haloperidol (Haldol) 10 mg BID PO ; Start 12/21/18 at 09:00; Stop 12/24/18 at 10:46; Status DC Haloperidol (Haldol) 10 mg BID PO ; Start 12/21/18 at 21:00; Stop 12/21/18 at 21:00; Status DC Haloperidol (Haldol) 10 mg STAT STAT IM Last administered on 12/13/18at 01:35; Start 12/13/18 at 01:26; Stop 12/13/18 at 01:28; Status DC Haloperidol (Haldol) 10 mg TID PO Last administered on 12/19/18at 22:00; Start 12/16/18 at 12:00; Stop 12/21/18 at 10:25; Status DC Haloperidol (Haldol) 10 mg TID PO ; Start 12/21/18 at 12:00; Stop 12/21/18 at 12:00; Status DC Haloperidol (Haldol) 10 mg TID PO Last administered on 12/27/18at 21:29; Start 12/24/18 at 16:00; Stop 12/29/18 at 11:14; Status DC Home Med (Med Rec Complete!) ASDIRECTED XX ; Start 12/09/18 at 14:00; Stop 12/09/18 at 14:00; Status DC Lorazepam (Ativan) 2 mg STAT STAT PO Last administered on 12/09/18at 11:58; Start 12/09/18 at 11:40; Stop 12/09/18 at 11:41; Status DC Magnesium Hydroxide (Milk Of Magnesia) 30 ml DAILYPRN PRN PO CONSTIPATION Last administered on 12/26/18at 09:16; Start 12/09/18 at 13:45 Miscellaneous (Unresolved Clarification Entry) SEE LABEL COMMENTS DAILY XX ; Start 12/10/18 at 09:00; Stop 12/10/18 at 14:48; Status DC Miscellaneous (Unresolved Clarification Entry) SEE LABEL COMMENTS DAILY XX ; Start 01/07/19 at 09:00; Status Cancel Miscellaneous (Unresolved Clarification Entry) SEE LABEL COMMENTS DAILY XX ; Start 01/08/19 at 09:00; Stop 01/08/19 at 10:48; Status DC Non-Formulary Medication ( See Comment Field Below ) SEE COMMENTS SECTION 1T@10 XX ; Start 12/25/18 at 10:00; Stop 12/26/18 at 09:59; Status UNV Non-Formulary Medication ( See Comment Field Below ) SEE COMMENTS SECTION 1T@10 XX ; Start 01/08/19 at 10:00; Stop 01/08/19 at 10:00; Status DC Non-Formulary Medication ( See Comment Field Below ) SEE LABEL COMMENTS DAILY XX ; Start 12/23/18 at 09:00; Stop 01/06/19 at 10:28; Status DC Olanzapine (ZyPREXA ZYDIS) 5 mg Q6HP PRN PO AGITATION; Start 12/09/18 at 13:45 Paliperidone (Invega) 3 mg BID PO ; Start 12/09/18 at 09:00; Status Cancel Pantoprazole Sodium (Protonix) 40 mg DAILY PO Last administered on 01/08/19at 08:15; Start 12/10/18 at 09:00 Propranolol HCl (Inderal) 10 mg TID PO Last administered on 01/08/19at 08:15; Start 12/29/18 at 09:00 Quetiapine Fumarate (SEROquel) 50 mg TID PO Last administered on 12/13/18at 08:41; Start 12/09/18 at 16:00; Stop 12/13/18 at 11:57; Status DC Trazodone HCl (Desyrel) 50 mg QHSP PRN PO INSOMNIA Last administered on 12/22/18at 20:25; Start 12/09/18 at 13:45 Allergies Coded Allergies: Penicillins (Verified Allergy, Unknown, 12/09/18) also penicillin cross reactors risperidone (Verified Allergy, Unknown, 12/09/18) KAERA PARTIDA DO Jan 09, 2019 9:27 am
[2019-01-09 18:44] VITALS: BP 128/71
[2019-01-10 07:00] VITALS: BP 118/73
--- NOTE | 2019-01-10 08:49 | MHIPNPDOC ---
[facility] Progress Note Progress Note DATE OF SERVICE: 01/10/19 HISTORY: 63-year-old male with chronic schizophrenia. VITAL SIGNS: See below. NEW TEST RESULTS:, None. CURRENT MEDICATIONS: See below. MENTAL STATUS EXAMINATION: Patient is a 63-year old male, who is pleasant in short conversations, but apparently still explosive with hallucinations of a paranoid and buddhist nature. Speech: Is normal. Language skills . No disturbance Thought processes including: Hallucinations of a paranoid nature and buddhist delusions. Thought content: As above. Abstract reasoning, and computation:, Poor. Description of associations:. Loose associations Description of abnormal or psychotic thoughts:. Paranoid and buddhist psychotic thought Judgment:. Poor. Insight: Poor. Orientation:, Intact 3. Recent and remote memory:. Some distortion and memory deficits. Attention span and concentration:, Poor. Language:, As above. Fund of knowledge:, Difficult to measure. Mood: Labile. Affect:, Labile. DIAGNOSES: 1. Schizophrenia. ASSESSMENT: Though patient seems improved over his initial admission. Apparently he is still explosive and having psychotic thought and long-term treatment is recommended by staff MANAGEMENT PLAN: As above. TIME SPENT:, 35 minutes. Vital Signs Vital Signs Date Time Temp Pulse Resp B/P (MAP) Pulse Ox O2 Delivery O2 Flow Rate FiO2 01/10/19 07:00 98.3 79 16 118/73 (88) Current Medications Current Medications Acetaminophen (Tylenol Tab) 650 mg Q6HP PRN PO HEADACHE or DISCOMFORT Last administered on 12/19/18at 10:27; Start 12/09/18 at 13:45 Al Hydrox/Mg Hydrox/Simethicone (Mylanta) 30 ml Q4HP PRN PO HEARTBURN/INDIGESTION Last administered on 12/30/18at 13:51; Start 12/09/18 at 13:45 Benztropine Mesylate (Cogentin) 1 mg BID PO Last administered on 12/29/18at 0 9:09; Start 12/12/18 at 09:00; Stop 12/29/18 at 11:14; Status DC Benztropine Mesylate (Cogentin) 1 mg TID PO Last administered on 01/09/19at 22:01; Start 12/29/18 at 16:00 Cetylpyridinium Chloride (Cepacol) 1 emily Q2HP PRN PO SORE THROAT Last administered on 12/22/18 20:25; Start 12/21/18 at 21:15 Docusate Sodium (Colace) 100 mg BID PO Last administered on 01/09/19 22:00; Start 12/19/18 at 21:00 Fluphenazine HCl (Prolixin) 10 mg TID PO Last administered on 01/09/19at 22:01; Start 12/29/18 at 09:00 Haloperidol (Haldol) 5 mg TID PO Last administered on 12/14/18at 08:38; Start 12/12/18 at 09:00; Stop 12/14/18 at 13:21; Status DC Haloperidol (Haldol) 7.5 mg TID PO Last administered on 12/15/18 20:49; Start 12/14/18 at 16:00; Stop 12/16/18 at 09:19; Status DC Haloperidol (Haldol) 10 mg BID PO ; Start 12/21/18 at 09:00; Stop 12/24/18 at 10:46; Status DC Haloperidol (Haldol) 10 mg BID PO ; Start 12/21/18 at 21:00; Stop 12/21/18 at 21:00; Status DC Haloperidol (Haldol) 10 mg STAT STAT IM Last administered on 12/13/18at 01:35; Start 12/13/18 at 01:26; Stop 12/13/18 at 01:28; Status DC Haloperidol (Haldol) 10 mg TID PO Last administered on 12/19/18at 22:00; Start 12/16/18 at 12:00; Stop 12/21/18 at 10:25; Status DC Haloperidol (Haldol) 10 mg TID PO ; Start 12/21/18 at 12:00; Stop 12/21/18 at 12:00; Status DC Haloperidol (Haldol) 10 mg TID PO Last administered on 12/27/18at 21:29; Start 12/24/18 at 16:00; Stop 12/29/18 at 11:14; Status DC Home Med (Med Rec Complete!) ASDIRECTED XX ; Start 12/09/18 at 14:00; Stop 12/09/18 at 14:00; Status DC Lorazepam (Ativan) 2 mg STAT STAT PO Last administered on 12/09/18at 11:58; Start 12/09/18 at 11:40; Stop 12/09/18 at 11:41; Status DC Magnesium Hydroxide (Milk Of Magnesia) 30 ml DAILYPRN PRN PO CONSTIPATION Last administered on 12/26/18at 09:16; Start 12/09/18 at 13:45 Miscellaneous (Unresolved Clarification Entry) SEE LABEL COMMENTS DAILY XX ; Start 12/10/18 at 09:00; Stop 12/10/18 at 14:48; Status DC Miscellaneous (Unresolved Clarification Entry) SEE LABEL COMMENTS DAILY XX ; Start 01/07/19 at 09:00; Status Cancel Miscellaneous (Unresolved Clarification Entry) SEE LABEL COMMENTS DAILY XX ; St art 01/08/19 at 09:00; Stop 01/08/19 at 10:48; Status DC Non-Formulary Medication ( See Comment Field Below ) SEE COMMENTS SECTION 1T@10 XX ; Start 12/25/18 at 10:00; Stop 12/26/18 at 09:59; Status UNV Non-Formulary Medication ( See Comment Field Below ) SEE COMMENTS SECTION 1T@10 XX ; Start 01/08/19 at 10:00; Stop 01/08/19 at 10:00; Status DC Non-Formulary Medication ( See Comment Field Below ) SEE LABEL COMMENTS DAILY XX ; Start 12/23/18 at 09:00; Stop 01/06/19 at 10:28; Status DC Olanzapine (ZyPREXA ZYDIS) 5 mg Q6HP PRN PO AGITATION; Start 12/09/18 at 13:45 Paliperidone (Invega) 3 mg BID PO ; Start 12/09/18 at 09:00; Status Cancel Pantoprazole Sodium (Protonix) 40 mg DAILY PO Last administered on 01/08/19at 08:15; Start 12/10/18 at 09:00 Propranolol HCl (Inderal) 10 mg TID PO Last administered on 01/09/19at 22:01; Start 12/29/18 at 09:00 Quetiapine Fumarate (SEROquel) 50 mg TID PO Last administered on 12/13/18at 08:41; Start 12/09/18 at 16:00; Stop 12/13/18 at 11:57; Status DC Trazodone HCl (Desyrel) 50 mg QHSP PRN PO INSOMNIA Last administered on 12/22/18at 20:25; Start 12/09/18 at 13:45 Allergies Coded Allergies: Penicillins (Verified Allergy, Unknown, 12/09/18) also penicillin cross reactors risperidone (Verified Allergy, Unknown, 12/09/18) JL CHOUDHURY MD Jan 10, 2019 08:48
[2019-01-10] MEDS: DOCUSATE SODIUM 100 MG CAP PO SCH ×2 (09:11→21:13)
[2019-01-10] MEDS: PROPRANOLOL 10 MG TAB PO SCH ×3 (09:11→21:13)
[2019-01-10] MEDS: BENZTROPINE 1 MG TAB PO SCH ×3 (09:11→21:13)
[2019-01-10] MEDS: PANTOPRAZOLE 40MG TAB (PROTONIX) PO SCH (09:11)
[2019-01-10 18:00] VITALS: BP 123/70
[2019-01-11 06:42] VITALS: BP 127/87
--- NOTE | 2019-01-11 07:11 | MHIPNPDOC ---
[facility] Progress Note Progress Note DATE OF SERVICE: 01/11/19 HISTORY: 63-year-old male with chronic schizophrenia, previously treated with Haldol Decanoate and oral Haldol, now on Prolixin oral. The patient still in cer tain situations demonstrates explosive and paranoid as well as buddhism ideations VITAL SIGNS: See below. NEW TEST RESULTS: . CURRENT MEDICATIONS: See below. MENTAL STATUS EXAMINATION: Patient is a 63-year old male, who is in treated for chronic schizophrenia with numerous positive symptomatology. Speech: Is intact. Language skills are. No significant abnormality. Thought processes including: Paranoid and buddhism ideation. Thought content: As above. Abstract reasoning, and computation:, Able to abstract. Description of associations:. No loose associations, but thoughts are tangential. Description of abnormal or psychotic thoughts: As above. Judgment:, Poor. Insight:, Poor. Orientation:. Oriented 3. Recent and remote memory:. As best as can be determined intact. Attention span and concentration:. Fair. Language:, As above. Fund of knowledge:, Full. Mood: Variable. Affect: Variable. DIAGNOSES: 1. Chronic schizophrenia. . . ASSESSMENT:. Continued treatment as per Dr. Barrera with possible need for placement MANAGEMENT PLAN: As above. TIME SPENT:, 35 minutes. Vital Signs Vital Signs Date Time Temp Pulse Resp B/P (MAP) Pulse Ox O2 Delivery O2 Flow Rate FiO2 01/11/19 06:42 99.3 62 18 127/87 (100) Current Medications Current Medications Acetaminophen (Tylenol Tab) 650 mg Q6HP PRN PO HEADACHE or DISCOMFORT Last administered on 12/19/18at 10:27; Start 12/09/18 at 13:45 Al Hydrox/Mg Hydrox/Simethicone (Mylanta) 30 ml Q4HP PRN PO HEARTBURN/INDIGESTION Last administered on 12/30/18at 13:51; Start 12/09/18 at 13:45 Benztropine Mesylate (Cogentin) 1 mg BID PO Last administered on 12/29/18at 09:09; Start 12/12/18 at 09:00; Stop 12/29/18 at 11:14; Status DC Benztropine Mesylate (Cogentin) 1 mg TID PO Last administered on 01/10/19at 21:13; Start 12/29/18 at 16:00 Cetylpyridinium Chloride (Cepacol) 1 emily Q2HP PRN PO SORE THROAT Last administered on 12/22/18 20:25; Start 12/21/18 at 21:15 Docusate Sodium (Colace) 100 mg BID PO Last administered on 01/10/19 21:13; Start 12/19/18 at 21:00 Fluphenazine HCl (Prolixin) 10 mg TID PO Last administered on 01/09/19at 22:01; Start 12/29/18 at 09:00 Haloperidol (Haldol) 5 mg TID PO Last administered on 12/14/18at 08:38; Start 12/12/18 at 09:00; Stop 12/14/18 at 13:21; Status DC Haloperidol (Haldol) 7.5 mg TID PO Last administered on 12/15/18at 20:49; Start 12/14/18 at 16:00; Stop 12/16/18 at 09:19; Status DC Haloperidol (Haldol) 10 mg BID PO ; Start 12/21/18 at 09:00; Stop 12/24/18 at 10:46; Status DC Haloperidol (Haldol) 10 mg BID PO ; Start 12/21/18 at 21:00; Stop 12/21/18 at 21:00; Status DC Haloperidol (Haldol) 10 mg STAT STAT IM Last administered on 12/13/18at 01:35; Start 12/13/18 at 01:26; Stop 12/13/18 at 01:28; Status DC Haloperidol (Haldol) 10 mg TID PO Last administered on 12/19/18at 22:00; Start 12/16/18 at 12:00; Stop 12/21/18 at 10:25; Status DC Haloperidol (Haldol) 10 mg TID PO ; Start 12/21/18 at 12:00; Stop 12/21/18 at 12:00; Status DC Haloperidol (Haldol) 10 mg TID PO Last administered on 12/27/18 21:29; Start 12/24/18 at 16:00; Stop 12/29/18 at 11:14; Status DC Home Med (Med Rec Complete!) ASDIRECTED XX ; Start 12/09/18 at 14:00; Stop 12/09/18 at 14:00; Status DC Lorazepam (Ativan) 2 mg STAT STAT PO Last administered on 12/09/18at 11:58; Start 12/09/18 at 11:40; Stop 12/09/18 at 11:41; Status DC Magnesium Hydroxide (Milk Of Magnesia) 30 ml DAILYPRN PRN PO CONSTIPATION Last administered on 12/26/18at 09:16; Start 12/09/18 at 13:45 Miscellaneous (Unresolved Clarification Entry) SEE LABEL COMMENTS DAILY XX ; Start 12/10/18 at 09:00; Stop 12/10/18 at 14:48; Status DC Miscellaneous (Unresolved Clarification Entry) SEE LABEL COMMENTS DAILY XX ; Start 01/07/19 at 09:00; Status Cancel Miscellaneous (Unresolved Clarification Entry) SEE LABEL COMMENTS DAILY XX ; Start 01/08/19 at 09:00; Stop 01/08/19 at 10:48; Status DC Non-Formulary Medication ( See Comment Field Below ) SEE COMMENTS SECTION 1T@10 XX ; Start 12/25/18 at 10:00; Stop 12/26/18 at 09:59; Status UNV Non-Formulary Medication ( See Comment Field Below ) SEE COMMENTS SECTION 1T@10 XX ; Start 01/08/19 at 10:00; Stop 01/08/19 at 10:00; Status DC Non-Formulary Medication ( See Comment Field Below ) SEE LABEL COMMENTS DAILY XX ; Start 12/23/18 at 09:00; Stop 01/06/19 at 10:28; Status DC Olanzapine (ZyPREXA ZYDIS) 5 mg Q6HP PRN PO AGITATION; Start 12/09/18 at 13:45 Paliperidone (Invega) 3 mg BID PO ; Start 12/09/18 at 09:00; Status Cancel Pantoprazole Sodium (Protonix) 40 mg DAILY PO Last administered on 01/10/19at 09:11; Start 12/10/18 at 09:00 Propranolol HCl (Inderal) 10 mg TID PO Last administered on 01/10/19at 21:13; Start 12/29/18 at 09:00 Quetiapine Fumarate (SEROquel) 50 mg TID PO Last administered on 12/13/18at 08:41; Start 12/09/18 at 16:00; Stop 12/13/18 at 11:57; Status DC Trazodone HCl (Desyrel) 50 mg QHSP PRN PO INSOMNIA Last administered on 12/22/18at 20:25; Start 12/09/18 at 13:45 Allergies Coded Allergies: Penicillins (Verified Allergy, Unknown, 12/09/18) also penicillin cross reactors risperidone (Verified Allergy, Unknown, 12/09/18) JL CHOUDHURY MD Jan 11, 2019 07:11
[2019-01-11] MEDS: DOCUSATE SODIUM 100 MG CAP PO SCH ×2 (09:15→20:42)
[2019-01-11] MEDS: BENZTROPINE 1 MG TAB PO SCH ×3 (09:16→20:42)
[2019-01-11] MEDS: PROPRANOLOL 10 MG TAB PO SCH ×3 (09:16→20:41)
[2019-01-11] MEDS: PANTOPRAZOLE 40MG TAB (PROTONIX) PO SCH (09:16)
[2019-01-11] MEDS: MOM 30ML SUSPENSION UDC PO PRN (13:30)
[2019-01-12 06:13] VITALS: BP 140/69
--- NOTE | 2019-01-12 08:49 | MHDSPDOC ---
[facility] Discharge Summary Discharge Summary DATE OF ADMISSION: December 09, 2018 at 1:32 pm DATE OF DISCHARGE: January 12, 2019 DISCHARGE DIAGNOSES: 1. paranoid Schizophrenia. REASON FOR ADMISSION: Patient is a 63 -year-old , male, with a psych history of paranoid schizophrenia and multiple admission [facility] and [facility] who was brought to ED by his sister due to psychotic, paranoid, religiously preoccupied symptoms. Per ED pt stopped taking his medications and following up at [facility] b/c "I didn't want to" and "I'm allergic to all psychotropics." Pt's sister also told ED that pt warned her to not come in his apt b/c she will be in danger and that his landlord called her to inform her that pt has been knocking on tenant's doors, yelling and preaching to them. 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 Pt is a very poor historian so history gathered from ED report of evaluation. CONSULTANTS INVOLVED: none TREATMENT AND PROGRESS ON THE UNIT : Pt was admitted to [facility], seen for psychiatric assessment and restarted on his outpatient medication haldol 10mg tid and haldol decanoate 300mg im qmonthly,cogentin 1mg bid changed to tid for eps. After receiving his monthly dose of haldol decanoate 300mg im that he tolerated well his oral haldol was discontinued due to poor treatment effect and he was started on prolixin 10mg tid that he tolerated well with only a minor improvement in psychosis. He was started on inderal 10mg tid for akathisia secondary to his antipsychotic mediation that was beneficial. He was provided zyprexa zydis 10mg q6hr prn agitation/anxiety. Hi medications were mildly beneficial and he tolerated them well. His symptoms symptoms of psychosis, religions and sexual delusions/preoccupation, bizarre delusions, and paranoia only improved minorly with treatment. He had an administration meeting and decision was made to send pt to [facility] for termite technician treatment. On day of tranfer he was still psychotic, bizarre, but compliant with his medications. He has not been aggressive or violent during his admission and is redirectable. He denies SI/HI. He is to be transferred to [facility] for termite technician psychiatric treatment tod ay. DISCHARGE ASSESSMENT: Pt remains psychotic. 63-year-old male diagnosed with schizophrenia on oral Prolixin and given haldol IM injection although continues to have yarsanism and sexual preoccupied thoughts, bizarre/paranoid delusions with only minor improvement with medication. Today continues to state he's allergic to "all antipsychotics" which is not true. He is compliant with his meds. Per 12/30/18 "Told me today "I have a micro chip in my mouth connected to the holy spirit hooked up right here (pointed to lt temporal lobe of head)... I can show you in my room." Wanted to get very close to me to tell me paranoid delusions and had to tell pt not to stand so close and I backed up from pt for my safety as sexually preoccupied." Yesterday, "paranoid that he's being over medicated and that the water is poisoned. Yelled at me about it spontaneously when seen and walked away." Today stated he had a "bowel impaction" that he got rid of on his own when seen (appears to be somatic delusion as talks of bowels occasionally and bowel impaction that he spontaneously clears on his own). Appears to have akathisia as shuffles feet and clenches/unclenches hands and started on inderal to improved with cogentin changed to tid with improvement. Currently walking milieu responding to internal stimuli. Continues to be bizarre and odd mannerisms. Is sitting in door way of his room looking out into the [place], daily. Paranoid. Pt is psychotic, delusional, at times yelling yarsanism persecutory delusions during meet, paranoid, reactive. He is ready to go to [facility] for termite technician psychiatric treatment today. MENTAL STATUS EXAMINATION ON DISCHARGE: Patient is a 63-year old male, who is being treated for schizophrenia oral Haldol and patient has received IM shot. Speech: Is brief, bizarre, delusional response Language skills are, characterized by brief statements. Some friendly and some persecuted, bizarre, and paranoid. Thought processes including: As above. Very bizarre and concrete Thought content: yarsanism and sexual preoccupied thoughts talking of micro chip in mouth connected to the holy spirit. Paranoid that he's being over medicated and that the water is poisoned today. Yelled at me about it spontaneously when seen and walked away Abstract reasoning, and computation: limited. Description of associations:. Loose association with yazidi, sex, medications. Description of abnormal or psychotic thoughts: Persecutory thoughts continue, yarsanism and sexual preoccupied thoughts, paranoia regarding meds and possibly people in milieu. Paranoid delusions as told me today "I have a micro chip in my mouth connected to the holy spirit hooked up right here (pointed to lt temporal lobe of head)... I can show you in my room." Wanted to get very close to me to tell me paranoid delusions and had to tell pt not to stand so close and I backed up from pt for my safety as sexually preoccupied. Paranoid that he's being over medicated and that the water is poisoned today. Somatic delusions of bowel impaction a few times a week that he states he spontaneously clears on his own. Judgment: poor Insight: Poor. Orientation: Intact 3. Recent and remote memory:. Intact. Attention span and concentration: Poor. Language: Intact. Fund of knowledge: below average and limited due to psychosis Mood: labile and reactive, at times agitated due to paranoid delusions at times. Affect: Congruent. MEDICATIONS ON DISCHARGE: Cogentin 1 mg tid Prolixin 10mg tid Trazodone 50 mg QHSP PRN PO INSOMNIA Haldol decanoate 300mg IM on 12/20/18 inderal 10mg tid PLAN/FOLLOWUP ARRANGEMENTS: transfer to [facility] for termite technician psychiatric treatment. The amount of time spent in the coordination of care for this patient was approximately 30 minutes. Vital Signs/I&Os Vital Signs Date Time Temp Pulse Resp B/P (MAP) Pulse Ox O2 Delivery O2 Flow Rate FiO2 01/12/19 06:13 98.9 59 18 140/69 (92) Medications Scheduled Benztropine Mesylate (Benztropine Mesylate) 1 Mg Tablet, 1 MG PO BID, (Reported) Haloperidol Decanoate (Haldol Decanoate 100) 100 Mg/1 Ml Ampul, 300 MG IM QMONTH, (Reported) Lorazepam (Lorazepam) 1 Mg Tablet, 1 MG PO TID, (Reported) Olanzapine (Olanzapine) 20 Mg Tablet, 20 MG PO QHS, (Reported) Pyridoxine HCl (Vitamin B6) (Pyridoxine HCl) 50 Mg Tablet, 25 MG PO QHS, (Reported) Miscellaneous Medications [Comment ] , (Reported) PT STOPPED TAKING MEDS AND HAS NOT HAD THEM IN A FEW WEEKS Allergies Coded Allergies: Penicillins (Verified Allergy, Unknown, 12/09/18) also penicillin cross reactors risperidone (Verified Allergy, Unknown, 12/09/18) KEARA PARTIDA DO Jan 12, 2019 8:49 am
[2019-01-12] MEDS: PANTOPRAZOLE 40MG TAB (PROTONIX) PO SCH (09:00)
[2019-01-12] MEDS: BENZTROPINE 1 MG TAB PO SCH (09:34)
[2019-01-12 09:35] VITALS: BP 140/69
[2019-01-12] MEDS: PROPRANOLOL 10 MG TAB PO SCH (09:35)
[2019-01-12] MEDS: DOCUSATE SODIUM 100 MG CAP PO SCH (09:36)
== END 2019-01-12 11:23 | DRG 885 ==
LOC: M ED 10:55 → M ED INP 13:32 → M PSY 15:20
PROVIDERS: ADMIT Psychiatry & Neurology Psychiatry; ATTEND Psychiatry & Neurology Psychiatry
DX: F20.0 Paranoid schizophrenia (principal); Z91.14 Patient's other noncompliance with medication regimen; Z88.0 Allergy status to penicillin; Z79.899 Other long term (current) drug therapy; K21.9 Gastro-esophageal reflux disease without esophagitis; J44.9 Chronic obstructive pulmonary disease, unspecified; E78.5 Hyperlipidemia, unspecified; K59.00 Constipation, unspecified; B18.2 Chronic viral hepatitis C; Z88.8 Allergy status to other drugs, medicaments and biological substances

== ENCOUNTER → 2024-12-11 | Outpatient (CLI) | payer MEDICARE, MEDICAID ==
[~2024-12-11] MED LIST changes: -AMIT24CA7 PO; -BENZ-52 PO; +BENZ1TAB5 PO; +COMMENT; +LORA1TAB23 PO; +LUBI24CA32 PO; +METH-1165 PO; -METH75TA PO; +OLAN20TA53 PO; -PALIPERIDONE 3 MG ER TAB (INVEGA) PO SCH; +PYRI50TA8 PO; -RIBA200T2 PO; +[UNRECOGNIZED DRUG - CODE] PO
[2024-12-11 10:51] LABS: HEMATOCRIT 44.6 % (42.0-52.0); HEMOGLOBIN 14.4 g/dl (13.5-17.5); MEAN CORPUSCULAR HEMOGLOBIN 28.6 pg (27.0-33.0); MEAN CORPUSCULAR HGB CONC 32.3 g/dl (32.0-36.5); MEAN CORPUSCULAR VOLUME 88.7 fl (80.0-96.0); PLATELET COUNT, AUTOMATED 174 10^3/uL (150-450); RED BLOOD COUNT 5.03 10^6/uL (4.30-6.10)
[2024-12-11 11:06] LABS: ALBUMIN 3.7 G/DL (3.2-5.2); ALKALINE PHOSPHATASE 128 U/L (40-129); ALT/SGPT 26 U/L (7.0-40); AST/SGOT 22 U/L (<34); BILIRUBIN,TOTAL 0.4 MG/DL (0.3-1.2); BLOOD UREA NITROGEN 18 MG/DL (9-23); CALCIUM LEVEL 9.5 MG/DL (8.3-10.6); CARBON DIOXIDE LEVEL 31 MMOL/L (20-31); CHLORIDE LEVEL 101 MMOL/L (98-107); CHOLESTEROL LEVEL 178 MG/DL (<200); GLOMERULAR FILTRATION RATE > 90.0 (>42); GLUCOSE, FASTING 96 MG/DL (74-106); POTASSIUM SERUM 4.5 MMOL/L (3.5-5.1); SODIUM LEVEL 140 MMOL/L (136-145); TOTAL PROTEIN 6.8 G/DL (5.7-8.2)
[2024-12-11 11:08] LABS: FREE T4 1.05 NG/DL (0.89-1.76); THYROID STIMULATING HORMONE 4.126 uIU/ML (0.55-4.78)
== END ==
LOC: M LAB 08:44
DX: Z00.8 Encounter for other general examination (principal); Z13.220 Encounter for screening for lipoid disorders; R53.83 Other fatigue

== ENCOUNTER 2025-04-17 04:10 | Inpatient (IN) | payer MEDICARE, MEDICAID ==
[~2025-04-17] VITALS: Ht 166.4 cm; Wt 76.0 kg
[2025-04-17 04:53] LABS: PLATELET COUNT, AUTOMATED 154 10^3/uL (150-450)
[2025-04-17 05:28] LABS: SALICYLATE LEVEL < 3.0 MG/DL (<30)
[2025-04-17 05:29] LABS: ALT/SGPT 25 U/L (7.0-40); AST/SGOT 33 U/L (<34); CALCIUM LEVEL 9.2 MG/DL (8.3-10.6); CARBON DIOXIDE LEVEL 29 MMOL/L (20-31); CHLORIDE LEVEL 103 MMOL/L (98-107); CREATININE FOR GFR 0.61 MG/DL (0.70-1.30); GLOMERULAR FILTRATION RATE > 90.0 (>42); POTASSIUM SERUM 4.3 MMOL/L (3.5-5.1); SODIUM LEVEL 139 MMOL/L (136-145)
[2025-04-17 05:30] LABS: ETHYL ALCOHOL (ETHANOL) 0.004 % (0.000-0.010)
[2025-04-17 07:23] LABS: CANNABINOIDS URINE NEGATIVE (NEGATIVE); PHENCYCLIDINE URINE NEGATIVE (NEGATIVE)
[2025-04-17 07:24] LABS: AMPHETAMINES LEVEL URINE NEGATIVE (NEGATIVE); BARBITURATES URINE NEGATIVE (NEGATIVE); BENZODIAZEPINES URINE NEGATIVE (NEGATIVE); COCAINE METABOLITE URINE NEGATIVE (NEGATIVE); METHADONE URINE NEGATIVE (NEGATIVE); OPIATES URINE NEGATIVE (NEGATIVE)
[2025-04-17] MEDS ORDERED: TAMS-18 PO (10:59)
[2025-04-17] MEDS ORDERED: PANT40TA29 PO (10:59)
[2025-04-17] MEDS ORDERED: HOME MED LIST COMPLETE! XX SCH (11:00)
[2025-04-17] MEDS: clonazePAM 1 MG TAB PO ONE (17:15)
[2025-04-17] MEDS ORDERED: PILL CUTTER 1 EACH XX PRN (19:40)
[2025-04-17] MEDS: BENZTROPINE 1 MG TAB PO SCH (20:15)
[2025-04-17] MEDS: PYRIDOXINE 50 MG TAB PO SCH (20:16)
[2025-04-18] MEDS: NICOTINE 14 MG/24 HR TRANSDERMAL TD SCH (09:00)
[2025-04-18] MEDS: TAMSULOSIN 0.4 MG CAP PO SCH (09:22)
[2025-04-18] MEDS: PANTOPRAZOLE 40MG TAB PO SCH (09:22)
[2025-04-18 14:05] VITALS: BP 127/77; TEMP 97.3; O2SAT 97
[2025-04-18] MEDS ORDERED: OLANZapine 5 MG TAB PO PRN (14:35)
[2025-04-18] MEDS ORDERED: ACETAMINOPHEN 325 MG TAB PO PRN (14:35)
[2025-04-18] MEDS ORDERED: MOM 30 ML SUSPENSION UDC PO PRN (14:35)
[2025-04-18] MEDS ORDERED: MAALOX 30 ML SUSP *UDC PO PRN (14:35)
[2025-04-18] MEDS ORDERED: IBUPROFEN 400 MG TAB PO PRN (14:35)
[2025-04-18] MEDS ORDERED: HALOPERIDOL 5 MG TAB PO PRN (14:35)
[2025-04-18] MEDS: LORazepam 1 MG TAB PO PRN (21:00)
[2025-04-18] MEDS: BENZTROPINE 1 MG TAB PO SCH (21:00)
[2025-04-18] MEDS: traZODone 50 MG TAB PO PRN (21:00)
[2025-04-19 06:32] VITALS: BP 124/78; TEMP 97.3; O2SAT 98
[2025-04-19] MEDS: PANTOPRAZOLE 40MG TAB PO SCH (09:37)
[2025-04-19] MEDS: TAMSULOSIN 0.4 MG CAP PO SCH (09:37)
[2025-04-19] MEDS: HALOPERIDOL 5 MG TAB PO SCH (10:42)
[2025-04-19 15:06] VITALS: BP 138/71; TEMP 97.9; O2SAT 98
[2025-04-19] MEDS: DOCUSATE SODIUM 100 MG CAPSULE PO SCH (20:34)
[2025-04-19] MEDS ORDERED: SENNA 8.6 MG TAB PO PRN (21:05)
[2025-04-20 06:28] VITALS: BP 144/73; TEMP 97.8; O2SAT 97
[2025-04-20 15:28] VITALS: BP 126/76; TEMP 97.7; O2SAT 98
[2025-04-21 06:29] VITALS: BP 156/87; TEMP 97; O2SAT 97
[2025-04-21 12:25] VITALS: BP 156/87; TEMP 97; O2SAT 97
[2025-04-21 15:29] VITALS: BP 140/75; TEMP 97.7; O2SAT 98
[2025-04-22 06:29] VITALS: BP 154/86; TEMP 97.3; O2SAT 99
[2025-04-22] MEDS ORDERED: COLA100C5 PO (09:24)
[2025-04-22] MEDS ORDERED: HALO5TAB33 PO (09:24)
[2025-04-22 11:53] VITALS: BP 154/86; TEMP 97.3; O2SAT 99
== END 2025-04-22 12:32 | disposition home or self-care (01) | DRG 885 ==
LOC: M ED 04:10 → M ED INP 04-18 14:31 → M PSY 04-18 16:05
PROVIDERS: ADMIT Internal Medicine; ATTEND Internal Medicine
DX: F20.0 Paranoid schizophrenia (principal); Z91.148 Patient's other noncompliance with medication regimen for other reason; E03.9 Hypothyroidism, unspecified; Z88.0 Allergy status to penicillin; Z88.8 Allergy status to other drugs, medicaments and biological substances; Z79.899 Other long term (current) drug therapy; K59.00 Constipation, unspecified